=== PATIENT | female | born 1955 | race Caucasian/White ===

== ENCOUNTER 2020-07-10 21:04 | Inpatient (IN) | payer BC ==
[~2020-07-10] VITALS: Ht 149.9 cm; Wt 52.0 kg
[2020-07-10 21:42] LABS: CALCIUM 8.7 MG/DL (8.5-10.1); CREATININE 1.3 MG/DL (0.55-1.30); POTASSIUM 3.9 MMOL/L (3.5-5.1)
[2020-07-10 21:43] LABS: HEMATOCRIT 40.6 % (37.0-47.0); HEMOGLOBIN 13.7 G/DL (12.0-16.0); MEAN CORPUSCULAR VOLUME 94 FL (80-99); PLATELET COUNT 167 K/UL (150-450); RED BLOOD COUNT 4.32 M/UL (4.20-5.40); RED CELL DISTRIBUTION WIDTH 12.8 % (11.6-14.8); WHITE BLOOD COUNT 3.6 K/UL (4.8-10.8)
[2020-07-10 21:46] LABS: ALBUMIN 3.9 G/DL (3.4-5.0); ALBUMIN/GLOBULIN RATIO 1.1 (1.0-2.7); BILIRUBIN,TOTAL 0.9 MG/DL (0.2-1.0)
--- NOTE | 2020-07-10 22:06 | Emergency Room Report ---
History of Present Illness General Chief Complaint: Nausea, Vomiting, and Diarrhea Source: Patient, EMS Present Illness HPI This is a 65-year-old female with severe rheumatoid arthritis. She presents with chief complaint of a fall and back pain. She says she was walking and lost her balance and fell. Complaint of lower back pain. Pain is 10 out of 10. She is also using fentanyl patch and oral pain medication. Not helping. No incontinence of bowel or urine. No fever chills but does have nausea and vomiting today. Denies any head injury. Not on blood thinner. Pain is 10 out of 10. Worse with movement. Better with rest. Allergies: Coded Allergies: NAPROXEN (Verified Allergy, Unknown, 07/10/20) COVID-19 Screening Contact w/high risk pt: No Experienced COVID-19 symptoms?: No COVID-19 Testing performed COMMUNITY SERVICE COORDINATOR: No Patient History Past Medical History: see triage record, old chart reviewed Past Surgical History: other Pertinent Family History: none Social History: Denies: smoking Now: No Immunizations: other Reviewed Nursing Documentation: PMH: Agreed; PSxH: Agreed Review of Systems Eye: Denies: eye pain, blurred vision ENT: Denies: ear pain, nose congestion, throat swelling Respiratory: Denies: cough, shortness of breath Cardiovascular: Denies: chest pain, palpitations Gastrointestinal: Denies: abdominal pain, diarrhea, nausea, vomiting Musculoskeletal: Reports: back pain; Denies: joint pain Skin: Denies: rash Neurological: Denies: headache, numbness Endocrine: Denies: increased thirst, increased urine Hematologic/Lymphatic: Denies: easy bruising All Other Systems: negative except mentioned in HPI Physical Exam Vital Signs Date Time Temp Pulse Resp B/P (MAP) Pulse Ox O2 Delivery O2 Flow Rate FiO2 07/10/20 21:06 98.4 96 19 173/95 (121) 97 Room Air Vitals with high blood pressure Sp02 EP Interpretation: reviewed, normal General Appearance: well appearing, no apparent distress, alert Head: normocephalic, atraumatic Eyes: bilateral eye PERRL, bilateral eye EOMI ENT: hearing grossly normal, normal pharynx Neck: full range of motion, supple, no meningismus Respiratory: chest non-tender, lungs clear, normal breath sounds Cardiovascular #1: regular rate, rhythm, no murmur Gastrointestinal: normal bowel sounds, non tender, no mass, no organomegaly, no bruit, non-distended Musculoskeletal: normal range of motion, tender - Tenderness to the lower lumbar spine, other - Severe degenerative changes of the joints of her fingers consistent with rheumatoid arthritis Neurologic: alert, oriented x3, grossly normal Psychiatric: mood/affect normal Medical Decision Making Diagnostic Impression: Primary Impression: UTI (urinary tract infection) Qualified Codes: N30.00 - Acute cystitis without hematuria Additional Impressions: Compression fracture of lumbar vertebra Qualified Codes: S32.000A - [place] compression fracture of unspecified lumbar vertebra, initial encounter for closed fracture Intractable low back pain Compression fracture of thoracic vertebra Qualified Codes: S22.000A - Wedge compression fracture of unspecified thoracic vertebra, initial encounter for closed fracture ER Course Patient presents with a fall. She has severe degenerative changes and rheumatoid arthritis. Her lumbar spine showed compression fractures of thoracic to lumbar area. She has diffuse osteopenia. This is most likely chronic. She does have a urinary tract infection. She has been urinating frequently here. A Cortes was placed. Antibiotics given. Patient also has 75 mcg of fentanyl patch on her. Because of her fall, the nurse took that off and threw it away. Now she has vomiting. May be withdrawing. Patient will be admitted because she lives by herself and because of her pain she cannot move around. Also concerning that she has a bandemia. I discussed the case with Dr. Ag who will admit. Rhythm Strip Diag. Results EP Interpretation: yes Rate: 100 Rhythm: NSR, no PVC's, no ectopy CT/MRI/US Diagnostic Results CT/MRI/US Diagnostic Results : Imaging Test Ordered: CT lumbar spine Impression Read by radiologist. Compression fracture of T10, T12 and L1. Most likely chronic. Last Vital Signs Date Time Temp Pulse Resp B/P (MAP) Pulse Ox O2 Delivery O2 Flow Rate FiO2 07/10/20 21:06 98.4 96 19 173/95 (121) 97 Room Air Status: improved Disposition: ADMITTED INPATIENT Condition: Serious Referrals: NOT CHOSEN IPA/,REFERRING (PCP) Andre Miller MD Jul 10, 2020 22:06
[2020-07-10] MEDS ORDERED: Morphine Sulfate 4mg/ml Inj (IV USE ONLY) IVP ONE (22:15)
[2020-07-10 22:19] LABS: APPEARANCE,URINE CLEAR; BILIRUBIN, URINE NEGATIVE (NEGATIVE); COLOR,URINE PALE YELLOW; GLUCOSE, URINE (UA) NEGATIVE (NEGATIVE); KETONES,URINE NEGATIVE (NEGATIVE); LEUKOCYTE ESTERASE ,URINE 2+ (NEGATIVE); NITRITE,URINE NEGATIVE (NEGATIVE); PH,URINE 7 (4.5-8.0); PROTEIN,URINE NEGATIVE (NEGATIVE); UROBILINOGEN,URINE NORMAL MG/DL (0.0-1.0)
[2020-07-10] MEDS ORDERED: cefTRIAXone 1 GM in NS 55 ML IVPB ONE (22:30)
[2020-07-10 22:45] VITALS: BP 148/92
--- NOTE | 2020-07-10 22:50 | Diagnostic Imaging Report ---
EXAM: CT Lumbar Spine Without Intravenous Contrast CLINICAL HISTORY: TRAUMA TECHNIQUE: Axial computed tomography images of the lumbar spine without intravenous contrast. CTDI is 6.0 mGy and DLP is 222.4 mGy-cm. One or more of the following dose reduction techniques were used: automated exposure control, adjustment of the mA and/or kV according to patient size, use of iterative reconstruction technique. COMPARISON: No relevant prior studies available. FINDINGS: Vertebrae: Compression fractures of T10, T12, and L1. Subtle increased sclerosis suggests chronic fractures. Multilevel spondylosis, most prominent at L3-L4. No severe canal narrowing. Diffuse osteopenia. [place] left scoliosis of the lumbar spine. Discs/spinal canal/neural foramina: No acute findings. No spinal canal stenosis. Soft tissues: Unremarkable. Vasculature: Atherosclerotic vascular disease. Kidneys and ureters: Bilateral nonobstructing nephroliths are present. Bladder: There is malpositioning of the Cortes catheter, which is positioned posterior to the urinary bladder, likely within the vagina. Reproductive: Calcified uterine fibroids. Other findings: Left total hip arthroplasty. IMPRESSION: 1. Compression fractures of T10, T12, and L1. Given diffuse osteopenia is difficult to date the fractures, however, given subtle sclerotic appearance, suggest chronic fractures. Recommend correlation with exam for location of pain and point tenderness. 2. Cortes catheter likely within the vaginal canal. Recommend repositioning. 3. Additional chronic findings as above.
[2020-07-10] MEDS ORDERED: HYDROmorphone 1mg/ml Carpuject IVP ONE (23:15)
[2020-07-10] MEDS ORDERED: HYDROmorphone 1mg/ml Carpuject IVP PRN (23:15)
[2020-07-10] MEDS ORDERED: Metoclopramide 10mg/2ml Inj IVP ONE (23:15)
[2020-07-11] MEDS ORDERED: PREDNISONE10 MG ORAL (00:07)
[2020-07-11] MEDS ORDERED: CELEBREX200 MG ORAL (00:07)
[2020-07-11] MEDS ORDERED: AUGMENTIN 875-1 EAC1 ORAL (00:07)
[2020-07-11] MEDS ORDERED: ZOFRAN4 M3 ORAL (00:12)
[2020-07-11] MEDS ORDERED: FENTANYL1 EAC4 TDERMAL (00:12)
[2020-07-11] MEDS ORDERED: LEXAPRO10 MG ORAL (00:12)
[2020-07-11] MEDS ORDERED: LISINOPRIL10 MG ORAL (00:12)
[2020-07-11] MEDS ORDERED: PROLIA60 MG/1 ML SUBQ (00:12)
[2020-07-11] MEDS ORDERED: LACTAID3000 UNI2 PO (00:12)
[2020-07-11] MEDS ORDERED: MUPIROCIN22 GM TOPIC (00:12)
[2020-07-11] MEDS ORDERED: MORPHINE SULFAT30 M8 PO (00:12)
[2020-07-11] MEDS ORDERED: RELISTOR12 MG/0.1 SUBQ (00:12)
[2020-07-11] MEDS ORDERED: MIRALAX17 G2 ORAL (00:12)
[2020-07-11] MEDS ORDERED: PROTONIX40 MG ORAL (00:12)
[2020-07-11 00:30] VITALS: BP 131/81
[2020-07-11] MEDS ORDERED: COLACE100 MG ORAL (01:30)
[2020-07-11] MEDS ORDERED: EMERGEN-C 1,01000 MG PO (01:30)
[2020-07-11] MEDS ORDERED: RINVOQ ER15 MG PO (01:30)
[2020-07-11] MEDS ORDERED: TRAUMEEL (01:30)
[2020-07-11] MEDS ORDERED: [UNRECOGNIZED DRUG - OTHER] PO (01:30)
[2020-07-11] MEDS ORDERED: WEEKLY-D1250 MCG PO (01:30)
[2020-07-11] MEDS ORDERED: FENTANYL1 EAC1 TOPIC (01:30)
[2020-07-11] MEDS ORDERED: CARISOPRODOL350 MG ORAL (01:30)
[2020-07-11] MEDS ORDERED: [UNRECOGNIZED DRUG - OTHER] PO (01:30)
[2020-07-11] MEDS ORDERED: MORPHINE S10 MG/5 ML ORAL (01:30)
[2020-07-11] MEDS ORDERED: Docusate 100mg cap ORAL PRN (01:45)
[2020-07-11] MEDS ORDERED: Morphine Sulfate 2mg/ml Inj(IV/IM USE ONLY) IVP PRN (01:45)
[2020-07-11] MEDS ORDERED: HYDROmorphone 1mg/ml Carpuject IVP PRN (01:45)
[2020-07-11 04:01] VITALS: BP 138/89
[2020-07-11 08:00] VITALS: BP 135/76
[2020-07-11] MEDS ORDERED: Meloxicam 15 MG TAB ORAL SCH (09:00)
[2020-07-11] MEDS ORDERED: Lisinopril 10mg tab ORAL SCH (09:00)
[2020-07-11] MEDS ORDERED: Enoxaparin 40mg Inj SUBQ SCH (09:00)
[2020-07-11 09:25] LABS: HEMATOCRIT 39.2 % (37.0-47.0); HEMOGLOBIN 14.1 G/DL (12.0-16.0); MEAN CORPUSCULAR VOLUME 87 FL (80-99); PLATELET COUNT 188 K/UL (150-450); RED BLOOD COUNT 4.51 M/UL (4.20-5.40); RED CELL DISTRIBUTION WIDTH 12.5 % (11.6-14.8); WHITE BLOOD COUNT 15.9 K/UL (4.8-10.8)
--- NOTE | 2020-07-11 09:25 | Consultation ---
History of Present Illness General Date patient seen: Jul 11, 2020 Chief Complaint: Present Illness Allergies: Coded Allergies: NAPROXEN (Verified Allergy, Unknown, 07/10/20) Medication History Scheduled Ascorbic Acid/Multivit-Min (Emergen-C 1,000 mg Packet), 1,000 MG PO DAILY, (Reported) Celecoxib* (Celebrex*), 200 MG ORAL BID, (Reported) Cholecalciferol (Vitamin D3) (Weekly-D), 50,000 UNITS PO QWEEK, (Reported) Denosumab (Prolia), 60 MG SUBQ EVERY 6 MONTHS, (Reported) Escitalopram Oxalate* (Lexapro*), 10 MG ORAL DAILY, (Reported) Fentanyl 12MCG Patch* (Fentanyl 12MCG Patch*), 1 PATCH TDERMAL EVERY 72 HOURS, (Reported) Fentanyl 50MCG Patch (Fentanyl 50MCG Patch*), 1 PATCH TOPIC EVERY 72 HOURS, (Reported) Lisinopril* (Lisinopril*), 10 MG ORAL DAILY, (Reported) Polyethylene Glycol 3350* (Miralax*), 17 GM ORAL HS, (Reported) Prednisone* (Prednisone*), 10 MG ORAL DAILY, (Reported) Upadacitinib (Rinvoq ER), 15 MG PO DAILY, (Reported) [algaecal], 360 MG PO DAILY, (Reported) [realistor], 150 MG PO DAILY, (Reported) Scheduled PRN Carisoprodol* (Carisoprodol*), 0.5 TAB ORAL Q6H PRN for back pain, (Reported) Docusate Sodium* (Colace*), 100 MG ORAL DAILY PRN for Constipation, (Reported) Lactase (Lactaid), 3,000 UNIT PO DAILY PRN for supplement, (Reported) Morphine 10mg/5ml Oral Soln* (Morphine 10mg/5ml Oral Soln*), 30 MG ORAL Q4HR PRN for For Pain, (Reported) Mupirocin* (Mupirocin*), 1 APPLIC TOPIC THREE TIMES A DAY PRN for cat scratches and bites, (Reported) Ondansetron* (Zofran*), 4 MG ORAL Q6H PRN for Nausea & Vomiting, (Reported) Pantoprazole* (Protonix*), 40 MG ORAL DAILY PRN for gerd, (Reported) Miscellaneous Medications [traumeel], Unknown Dose, (Reported) Discontinued Medications Amoxicillin/Potassium Clav 875-125* (Augmentin 875-125 Tablet*), 1 TAB ORAL TWICE A DAY, (Reported) Discontinued Reason: Therapy completed Patient History Healthcare decision maker Resuscitation status Advanced Directive on File Physical Exam Last 24 Hour Vital Signs Date Time Temp Pulse Resp B/P (MAP) Pulse Ox O2 Delivery O2 Flow Rate FiO2 07/11/20 08:00 98.0 104 19 135/76 (95) 97 07/11/20 04:01 97.9 119 20 138/89 (105) 96 07/11/20 01:00 Room Air 2.0 07/11/20 00:30 99.9 115 20 131/81 (98) 96 07/11/20 00:05 98.4 104 19 148/92 97 Room Air 07/10/20 23:57 98.4 07/10/20 22:45 98.4 104 19 148/92 97 Room Air 07/10/20 22:40 98.4 07/10/20 21:06 98.4 96 19 173/95 (121) 97 Room Air Intake and Output 07/10/20 07/11/20 19:00 07:00 Intake Total 0 ml Balance 0 ml Intake Oral 0 ml # Voids 2 Laboratory Tests Test 07/10/20 21:20 07/10/20 22:00 07/11/20 09:00 White Blood Count 3.6 K/UL (4.8-10.8) L Pending Red Blood Count 4.32 M/UL (4.20-5.40) Pending Hemoglobin 13.7 G/DL (12.0-16.0) Pending Hematocrit 40.6 % (37.0-47.0) Pending Mean Corpuscular Volume 94 FL (80-99) Pending Mean Corpuscular Hemoglobin 31.7 PG (27.0-31.0) H Pending Mean Corpuscular Hemoglobin Concent 33.7 G/DL (32.0-36.0) Pending Red Cell Distribution Width 12.8 % (11.6-14.8) Pending Platelet Count 167 K/UL (150-450) Pending Mean Platelet Volume 6.7 FL (6.5-10.1) Pending Neutrophils (%) (Auto) % (45.0-75.0) Pending Lymphocytes (%) (Auto) % (20.0-45.0) Pending Monocytes (%) (Auto) % (1.0-10.0) Pending Eosinophils (%) (Auto) % (0.0-3.0) Pending Basophils (%) (Auto) % (0.0-2.0) Pending Differential Total Cells Counted 100 Neutrophils % (Manual) 82 % (45-75) H Lymphocytes % (Manual) 7 % (20-45) L Monocytes % (Manual) 2 % (1-10) Eosinophils % (Manual) 0 % (0-3) Basophils % (Manual) 1 % (0-2) Band Neutrophils 10 % (0-8) H Platelet Estimate Adequate Platelet Morphology Normal Red Blood Cell Morphology Normal Sodium Level 133 MMOL/L (136-145) L Pending Potassium Level 3.9 MMOL/L (3.5-5.1) Pending Chloride Level 96 MMOL/L (98-107) L Pending Carbon Dioxide Level 30 MMOL/L (21-32) Pending Anion Gap 7 mmol/L (5-15) Blood Urea Nitrogen 13 mg/dL (7-18) Pending Creatinine 1.3 MG/DL (0.55-1.30) Pending Estimat Glomerular Filtration Rate 41.0 mL/min (>60) Pending Glucose Level 146 MG/DL (74-106) H Pending Calcium Level 8.7 MG/DL (8.5-10.1) Pending Total Bilirubin 0.9 MG/DL (0.2-1.0) Pending Aspartate Amino Transf (AST/SGOT) 27 U/L (15-37) Pending Alanine Aminotransferase (ALT/SGPT) 23 U/L (12-78) Pending Alkaline Phosphatase 76 U/L (46-116) Pending Total Protein 7.4 G/DL (6.4-8.2) Pending Albumin 3.9 G/DL (3.4-5.0) Pending Globulin 3.5 g/dL Pending Albumin/Globulin Ratio 1.1 (1.0-2.7) Lipase 61 U/L (73-393) L Urine Color Pale yellow Urine Appearance Clear Urine pH 7 (4.5-8.0) Urine Specific [place] 1.000 (1.005-1.035) Urine Protein Negative (NEGATIVE) Urine Glucose (UA) Negative (NEGATIVE) Urine Ketones Negative (NEGATIVE) Urine Blood 3+ (NEGATIVE) H Urine Nitrite Negative (NEGATIVE) Urine Bilirubin Negative (NEGATIVE) Urine Urobilinogen Normal MG/DL (0.0-1.0) Urine Leukocyte Esterase 2+ (NEGATIVE) H Urine RBC 15-20 /HPF (0 - 2) H Urine WBC 15-20 /HPF (0 - 2) H Urine Squamous Epithelial Cells Few /LPF (NONE/OCC) Urine Bacteria Moderate /HPF (NONE) H Hemoglobin A1c Pending Triglycerides Level Pending Cholesterol Level Pending LDL Cholesterol Pending HDL Cholesterol Pending Cholesterol/HDL Ratio Pending Height (Feet): 4 Height (Inches): 11.00 Weight (Pounds): 103 Medications Current Medications Medications (Trade) Dose Ordered Sig/Jessica Route PRN Reason Start Time Stop Time Status Last Admin Dose Admin Acetaminophen (Tylenol) 650 mg Q6H PRN ORAL mild pain and fever 07/11/20 01:45 08/10/20 01:44 Ceftriaxone Sodium 2 gm/ Dextrose 55 ml @ 110 mls/hr Q24H IVPB 07/11/20 23:00 07/18/20 22:59 Docusate Sodium (Colace) 100 mg DAILY PRN ORAL Constipation 07/11/20 01:45 08/10/20 01:44 Enoxaparin Sodium (Lovenox) 40 mg DAILY SUBQ 07/11/20 09:00 10/09/20 08:59 Escitalopram Oxalate (Lexapro) 10 mg DAILY ORAL 07/11/20 09:00 08/10/20 08:59 Hydromorphone HCl (Dilaudid) 1 mg Q6H PRN IVP Severe Pain (Pain Scale 7-10) 07/11/20 01:45 07/18/20 01:44 Lisinopril (ZestriL) 10 mg DAILY ORAL 07/11/20 09:00 08/10/20 08:59 Meloxicam (Mobic) 15 mg DAILY ORAL 07/11/20 09:00 08/10/20 08:59 Metoclopramide HCl (Reglan) 10 mg Q6H PRN IVP Nausea & Vomiting 07/11/20 01:45 08/10/20 01:44 Morphine Sulfate (Morphine Sulfate) 2 mg Q4H PRN IVP Moderate Pain (Pain Scale 4-6) 07/11/20 01:45 07/18/20 01:44 Mupirocin (Bactroban Oint) 1 applic THREE TIMES A DAY PRN TOPIC cat scratches and bites 07/11/20 01:45 07/16/20 01:44 Ondansetron HCl (Zofran) 4 mg Q6H PRN ORAL Nausea & Vomiting 07/11/20 01:45 08/10/20 01:44 Pantoprazole (Protonix) 40 mg DAILY PRN ORAL gerd 07/11/20 01:45 08/10/20 01:44 Polyethylene Glycol (Miralax) 17 gm QHS ORAL 07/11/20 21:00 08/10/20 20:59 Prednisone (predniSONE) 10 mg DAILY ORAL 07/11/20 09:00 08/10/20 08:59 Assessment/Plan Assessment/Plan: (1) Lumbar DDD/Spondylosis (2) Thoracic compression fractures (3) Rheumatoid arthritis (4) Multiple joint pain seen dictated David Morris Jul 11, 2020 09:25
[2020-07-11] MEDS ORDERED: Naloxone 0.4mg/ml Inj IVP PRN (09:30)
[2020-07-11] MEDS: HYDROmorphone 1mg/ml Carpuject IVP PRN ×4 (09:35→22:47)
[2020-07-11 10:02] LABS: ALANINE AMINOTRANSFERASE 117 U/L (12-78); ALBUMIN 2.9 G/DL (3.4-5.0); ALBUMIN/GLOBULIN RATIO 1.1 (1.0-2.7); ALKALINE PHOSPHATASE 140 U/L (46-116); ANION GAP 10 mmol/L (5-15); ASPARTATE AMINO TRANSFERASE 152 U/L (15-37); BLOOD UREA NITROGEN 12 mg/dL (7-18); CALCIUM 7.7 MG/DL (8.5-10.1); CARBON DIOXIDE 27 MMOL/L (21-32); CHLORIDE 101 MMOL/L (98-107); CHOLESTEROL 186 MG/DL (< 200); CREATININE 1.6 MG/DL (0.55-1.30); HDL CHOLESTEROL 96 MG/DL (40-60); POTASSIUM 3.3 MMOL/L (3.5-5.1); SODIUM 138 MMOL/L (136-145); TRIGLYCERIDES 160 MG/DL (30-150)
--- NOTE | 2020-07-11 10:30 | History and Physical Report ---
DATE OF ADMISSION: 07/10/2020 SOURCE OF INFORMATION: The patient and EMR. HISTORY OF PRESENT ILLNESS: The patient is a 65-year-old female that came to the ER with diffuse back pain. The patient reportedly had fallen and has been suffering from the severe osteoarthritis. The patient is complaining of lower back pain. Denies any incontinence in the bowel or urine. Denies any nausea or vomitus. Denies any fever or chills. CURRENT HOSPITAL MEDICATIONS: Dilaudid, morphine. PAST MEDICAL AND SURGICAL HISTORY: Including rheumatoid arthritis, osteoporosis, and multiple joint deformities. ALLERGIES: To naproxen. SOCIAL HISTORY: The patient reported that she is living by herself. The patient denies history of illicit drug abuse, smoking, or alcohol abuse. Remainder cannot be obtained as the patient is sleepy. PHYSICAL EXAMINATION: VITAL SIGNS: Blood pressure 170/80, temperature 98.2, pulse rate 110, and respiratory rate 18. HEAD AND NECK: Atraumatic and normocephalic. CHEST: Clear to auscultation. HEART: S1 and S2. Regular rate and rhythm. ABDOMEN: Soft. No organomegaly. MUSCULOSKELETAL: Diffuse deformity in all of her joints. Positive for stooped postures and pain in the thoracic area. NEUROLOGIC: The patient is awake, alert, and oriented x3 with incidence of delirious, iatrogenic secondary to narcotic pain medication. IMAGING: Spine CT dated July 10, reviewed shows compression fractures of T10, T12, and L1. LABORATORY DATA: Labs dated July 10, hemoglobin of 13.7, platelet count of 167,000. Sodium 133. UA is positive for bacteria, blood, and wbc. ASSESSMENT AND PLAN: 1. Mechanical fall and multiple compression deformity fractures in multiple ages. 2. UTI. 3. Pain management. 4. Rheumatoid arthritis and severe debilitating arthritic disease. 5. Hypertension. 6. Anxiety and depression. 7. GI and DVT prophylaxis. PLAN OF CARE: Continue with empiric antibiotic treatment. Nephrology, psychiatrist, and Pain Management have been consulted. The time of this dictation does not reflect the actual time of encounter. Jessica Ag M.D. DR: Pranav JOB#: [id number] CC:
[2020-07-11 12:00] VITALS: BP 130/80
--- NOTE | 2020-07-11 12:59 | Consultation ---
Consult Note Consult Note I am asked to evaluate the patient at the request of Dr. Ag for elevated serum creatinine and electrolyte imbalance management Patient seen and examined Emergency room note: Chief Complaint: Nausea, Vomiting, and Diarrhea This is a 65-year-old female with severe rheumatoid arthritis. She presents with chief complaint of a fall and back pain. She says she was walking and lost her balance and fell. Complaint of lower back pain. Pain is 10 out of 10. She is also using fentanyl patch and oral pain medication. Not helping. No incontinence of bowel or urine. No fever chills but does have nausea and vomiting today. Denies any head injury. Not on blood thinner. Pain is 10 out of 10. Worse with movement. Better with rest. Allergies: NAPROXEN (Verified Allergy, Unknown, 07/10/20) COVID-19 Screening Contact w/high risk pt: No Experienced COVID-19 symptoms?: No COVID-19 Testing performed GENERAL PASSENGER AGENT: No Vital Signs Date Time Temp Pulse Resp B/P (MAP) Pulse Ox O2 Delivery O2 Flow Rate FiO2 07/10/20 21:06 98.4 96 19 173/95 (121) 97 Room Air Vitals with high blood pressure HEAD AND NECK: Atraumatic and normocephalic. CHEST: Clear to auscultation. HEART: S1 and S2. Regular rate and rhythm. ABDOMEN: Soft. No organomegaly. MUSCULOSKELETAL: Diffuse deformity in all of her joints. Positive for stooped postures and pain in the thoracic area. NEUROLOGIC: The patient is awake, alert, and oriented x3 with incidence of delirious, iatrogenic secondary to narcotic pain medication. DATA: Sodium 138, potassium 3.3, BUN 12, creatinine 1.6, glucose 90. AST 152, ALT 117. Albumin 2.9. Lipase 61. Hemoglobin 14.1, WBC 15.9, platelets 188. . Assessment/Plan Renal failure, likely dehydration UTI Electrolyte abnormalities Elevated liver function tests History of rheumatoid arthritis Suggestion: Stop meloxicam Stop lisinopril Protonix twice daily Monitor renal parameters Avoid nephrotoxic's Urine studies Slow hydration Per orders Deepak Joseph MD Jul 11, 2020 12:59
--- NOTE | 2020-07-11 13:50 | Consultation ---
History of Present Illness General Date patient seen: Jul 11, 2020 Chief Complaint: Nausea, Vomiting, and Diarrhea Present Illness HPI 65 y/o F with hx of advanced RA, HTN, Anxiety disorder/MDD, osteoporosis presented to ED with fall, back pain, nausea, vomiting and diarrhea. Upon admission was found to be on DIANNE Denied f/c, head injury, bowel or urine incontinence Allergies: Coded Allergies: NAPROXEN (Verified Allergy, Unknown, 07/10/20) Medication History Scheduled Ascorbic Acid/Multivit-Min (Emergen-C 1,000 mg Packet), 1,000 MG PO DAILY, (Reported) Celecoxib* (Celebrex*), 200 MG ORAL BID, (Reported) Cholecalciferol (Vitamin D3) (Weekly-D), 50,000 UNITS PO QWEEK, (Reported) Denosumab (Prolia), 60 MG SUBQ EVERY 6 MONTHS, (Reported) Escitalopram Oxalate* (Lexapro*), 10 MG ORAL DAILY, (Reported) Fentanyl 12MCG Patch* (Fentanyl 12MCG Patch*), 1 PATCH TDERMAL EVERY 72 HOURS, (Reported) Fentanyl 50MCG Patch (Fentanyl 50MCG Patch*), 1 PATCH TOPIC EVERY 72 HOURS, (Reported) Lisinopril* (Lisinopril*), 10 MG ORAL DAILY, (Reported) Polyethylene Glycol 3350* (Miralax*), 17 GM ORAL HS, (Reported) Prednisone* (Prednisone*), 10 MG ORAL DAILY, (Reported) Upadacitinib (Rinvoq ER), 15 MG PO DAILY, (Reported) [algaecal], 360 MG PO DAILY, (Reported) [realistor], 150 MG PO DAILY, (Reported) Scheduled PRN Carisoprodol* (Carisoprodol*), 0.5 TAB ORAL Q6H PRN for back pain, (Reported) Docusate Sodium* (Colace*), 100 MG ORAL DAILY PRN for Constipation, (Reported) Lactase (Lactaid), 3,000 UNIT PO DAILY PRN for supplement, (Reported) Morphine 10mg/5ml Oral Soln* (Morphine 10mg/5ml Oral Soln*), 30 MG ORAL Q4HR PRN for For Pain, (Reported) Mupirocin* (Mupirocin*), 1 APPLIC TOPIC THREE TIMES A DAY PRN for cat scratches and bites, (Reported) Ondansetron* (Zofran*), 4 MG ORAL Q6H PRN for Nausea & Vomiting, (Reported) Pantoprazole* (Protonix*), 40 MG ORAL DAILY PRN for gerd, (Reported) Miscellaneous Medications [traumeel], Unknown Dose, (Reported) Discontinued Medications Amoxicillin/Potassium Clav 875-125* (Augmentin 875-125 Tablet*), 1 TAB ORAL TWICE A DAY, (Reported) Discontinued Reason: Therapy completed Patient History Healthcare decision maker Resuscitation status Advanced Directive on File Patient History Narrative Pmhx: as above Shx: The patient reported that she is living by herself. The patient denies history of illicit drug abuse, smoking, or alcohol abuse. Fhx: non contributory Review of Systems All Other Systems: negative except mentioned in HPI Physical Exam Physical Exam Narrative HEAD AND NECK: Atraumatic and normocephalic. CHEST: Clear to auscultation. HEART: S1 and S2. Regular rate and rhythm. ABDOMEN: Soft. No organomegaly. MUSCULOSKELETAL: Diffuse deformity in all of her joints. Positive for stooped postures and pain in the thoracic area. NEUROLOGIC: The patient is awake, alert, and oriented x3 with incidence of delirious, iatrogenic secondary to narcotic pain medication. Last 24 Hour Vital Signs Date Time Temp Pulse Resp B/P (MAP) Pulse Ox O2 Delivery O2 Flow Rate FiO2 07/11/20 12:00 98.1 83 20 130/80 (97) 98 07/11/20 09:39 135/76 07/11/20 09:00 Nasal Cannula 2.0 07/11/20 08:00 98.0 104 19 135/76 (95) 97 07/11/20 04:01 97.9 119 20 138/89 (105) 96 07/11/20 01:00 Room Air 2.0 07/11/20 00:30 99.9 115 20 131/81 (98) 96 07/11/20 00:05 98.4 104 19 148/92 97 Room Air 07/10/20 23:57 98.4 07/10/20 22:45 98.4 104 19 148/92 97 Room Air 07/10/20 22:40 98.4 07/10/20 21:06 98.4 96 19 173/95 (121) 97 Room Air Intake and Output 07/10/20 07/11/20 19:00 07:00 Intake Total 0 ml Balance 0 ml Intake Oral 0 ml # Voids 2 Laboratory Tests Test 07/10/20 21:20 07/10/20 22:00 07/11/20 09:00 White Blood Count 3.6 K/UL (4.8-10.8) L 15.9 K/UL (4.8-10.8) #H Red Blood Count 4.32 M/UL (4.20-5.40) 4.51 M/UL (4.20-5.40) Hemoglobin 13.7 G/DL (12.0-16.0) 14.1 G/DL (12.0-16.0) Hematocrit 40.6 % (37.0-47.0) 39.2 % (37.0-47.0) Mean Corpuscular Volume 94 FL (80-99) 87 FL (80-99) Mean Corpuscular Hemoglobin 31.7 PG (27.0-31.0) H 31.3 PG (27.0-31.0) H Mean Corpuscular Hemoglobin Concent 33.7 G/DL (32.0-36.0) 36.0 G/DL (32.0-36.0) Red Cell Distribution Width 12.8 % (11.6-14.8) 12.5 % (11.6-14.8) Platelet Count 167 K/UL (150-450) 188 K/UL (150-450) Mean Platelet Volume 6.7 FL (6.5-10.1) 6.2 FL (6.5-10.1) L Neutrophils (%) (Auto) % (45.0-75.0) % (45.0-75.0) Lymphocytes (%) (Auto) % (20.0-45.0) % (20.0-45.0) Monocytes (%) (Auto) % (1.0-10.0) % (1.0-10.0) Eosinophils (%) (Auto) % (0.0-3.0) % (0.0-3.0) Basophils (%) (Auto) % (0.0-2.0) % (0.0-2.0) Differential Total Cells Counted 100 100 Neutrophils % (Manual) 82 % (45-75) H 82 % (45-75) H Lymphocytes % (Manual) 7 % (20-45) L 5 % (20-45) L Monocytes % (Manual) 2 % (1-10) 7 % (1-10) Eosinophils % (Manual) 0 % (0-3) 0 % (0-3) Basophils % (Manual) 1 % (0-2) 0 % (0-2) Band Neutrophils 10 % (0-8) H 6 % (0-8) Platelet Estimate Adequate Adequate Platelet Morphology Normal Normal Red Blood Cell Morphology Normal Normal Sodium Level 133 MMOL/L (136-145) L 138 MMOL/L (136-145) Potassium Level 3.9 MMOL/L (3.5-5.1) 3.3 MMOL/L (3.5-5.1) L Chloride Level 96 MMOL/L (98-107) L 101 MMOL/L (98-107) Carbon Dioxide Level 30 MMOL/L (21-32) 27 MMOL/L (21-32) Anion Gap 7 mmol/L (5-15) 10 mmol/L (5-15) Blood Urea Nitrogen 13 mg/dL (7-18) 12 mg/dL (7-18) Creatinine 1.3 MG/DL (0.55-1.30) 1.6 MG/DL (0.55-1.30) H Estimat Glomerular Filtration Rate 41.0 mL/min (>60) 32.3 mL/min (>60) Glucose Level 146 MG/DL (74-106) H 90 MG/DL (74-106) Calcium Level 8.7 MG/DL (8.5-10.1) 7.7 MG/DL (8.5-10.1) L Total Bilirubin 0.9 MG/DL (0.2-1.0) 1.0 MG/DL (0.2-1.0) Aspartate Amino Transf (AST/SGOT) 27 U/L (15-37) 152 U/L (15-37) H Alanine Aminotransferase (ALT/SGPT) 23 U/L (12-78) 117 U/L (12-78) H Alkaline Phosphatase 76 U/L (46-116) 140 U/L (46-116) H Total Protein 7.4 G/DL (6.4-8.2) 5.6 G/DL (6.4-8.2) L Albumin 3.9 G/DL (3.4-5.0) 2.9 G/DL (3.4-5.0) L Globulin 3.5 g/dL 2.7 g/dL Albumin/Globulin Ratio 1.1 (1.0-2.7) 1.1 (1.0-2.7) Lipase 61 U/L (73-393) L Urine Color Pale yellow Urine Appearance Clear Urine pH 7 (4.5-8.0) Urine Specific White 1.000 (1.005-1.035) Urine Protein Negative (NEGATIVE) Urine Glucose (UA) Negative (NEGATIVE) Urine Ketones Negative (NEGATIVE) Urine Blood 3+ (NEGATIVE) H Urine Nitrite Negative (NEGATIVE) Urine Bilirubin Negative (NEGATIVE) Urine Urobilinogen Normal MG/DL (0.0-1.0) Urine Leukocyte Esterase 2+ (NEGATIVE) H Urine RBC 15-20 /HPF (0 - 2) H Urine WBC 15-20 /HPF (0 - 2) H Urine Squamous Epithelial Cells Few /LPF (NONE/OCC) Urine Bacteria Moderate /HPF (NONE) H Hemoglobin A1c 5.7 % (4.3-6.0) Triglycerides Level 160 MG/DL (30-150) H Cholesterol Level 186 MG/DL (< 200) LDL Cholesterol 69 mg/dL (<100) HDL Cholesterol 96 MG/DL (40-60) H Cholesterol/HDL Ratio 1.9 (3.3-4.4) L Height (Feet): 4 Height (Inches): 11.00 Weight (Pounds): 103 Medications Current Medications Medications (Trade) Dose Ordered Sig/Jessica Route PRN Reason Start Time Stop Time Status Last Admin Dose Admin Acetaminophen (Tylenol) 650 mg Q6H PRN ORAL mild pain and fever 07/11/20 01:45 08/10/20 01:44 Ceftriaxone Sodium 2 gm/ Dextrose 55 ml @ 110 mls/hr Q24H IVPB 07/11/20 23:00 07/18/20 22:59 Dextrose/ Electrolytes 1,000 ml @ 50 mls/hr Q20H IV 07/11/20 14:00 08/10/20 13:59 Docusate Sodium (Colace) 100 mg TID ORAL 07/11/20 18:00 08/10/20 01:44 Enoxaparin Sodium (Lovenox) 30 mg DAILY SUBQ 07/12/20 09:00 10/10/20 08:59 Escitalopram Oxalate (Lexapro) 10 mg DAILY ORAL 07/11/20 09:00 08/10/20 08:59 07/11/20 12:23 Hydromorphone HCl (Dilaudid) 1 mg Q4H PRN IVP Severe Pain (Pain Scale 7-10) 07/11/20 09:30 07/18/20 01:44 07/11/20 09:35 Metoclopramide HCl (Reglan) 10 mg Q6H PRN IVP Nausea & Vomiting 07/11/20 01:45 08/10/20 01:44 Mupirocin (Bactroban Oint) 1 applic THREE TIMES A DAY PRN TOPIC cat scratches and bites 07/11/20 01:45 07/16/20 01:44 Naloxone HCl (Narcan) 0.2 mg Q2M PRN IVP RR<8/MIN 07/11/20 09:30 10/09/20 09:29 Pantoprazole (Protonix) 40 mg BID ORAL 07/11/20 13:15 08/10/20 01:44 Polyethylene Glycol (Miralax) 17 gm QHS ORAL 07/11/20 21:00 08/10/20 20:59 Prednisone (predniSONE) 10 mg DAILY ORAL 07/11/20 09:00 08/10/20 08:59 07/11/20 09:40 Assessment/Plan Assessment/Plan: Abx: Ceftriaxone 07/10- Assessment: Sepsis Probable UTI- ?pyelo ( had n/v ) -u/a wbc 15-20, nit neg, leuk +2; ucx p Afebrile Leukocytosis (on low dose prednisone but this is home med and no leukocytosis upon admission) DIANNE Nause/vomiting- r/o acute cholecystitis Elevated LFTs Back pain, sp fall- Compression fx T10, T12, L1 -CT L spine: Compression fractures of T10, T12, and L1. Given diffuse osteopenia is difficult to date the fractures, however, given subtle sclerotic appearance, suggest chronic fractures. Recommend correlation with exam for location of pain and point tenderness.Cortes catheter likely within the vaginal canal. Recommend repositioning. Additional chronic findings as above. advanced RA HTN Anxiety disorder/MDD osteoporosis Plan: -Switch Ceftriaxone #2 to Zosyn -f/u cx -Monitor CBC/CMP, temperatures -f.u abd us -HIV ab screen, Acute hep panel, CXR, Bcx x2 Thank you for this consultation. Will continue to follow along with you. Discussed with DEX. Pushpa Tejeda M.D. Jul 11, 2020 13:50
--- NOTE | 2020-07-11 14:48 | Diagnostic Imaging Report ---
Indication: Abdominal pain Technique: Adams-scale and duplex images of the upper abdomen were obtained Comparison: none Findings: Large vessels are seen around the pancreas. Gallbladder there is trace no gallstones. There is mild gallbladder wall thickening, gallbladder wall measuring 4 mm thick Sonographic Abdul's sign is negative. Common bile duct measures 6 mm in diameter. No intrahepatic biliary ductal dilatation. Liver demonstrates normal echogenicity, no focal abnormality. Portal vein and hepatic veins are patent. Pancreas is unremarkable although anechoic round structures are seen in the peripancreatic region. Spleen is unremarkable. However, a prominent vascular structures seen in the splenic hilum. Left kidney measures 9.9 cm in length. Right kidney measures 8 cm length. Both kidneys demonstrate normal echogenicity. There is no hydronephrosis. A calcification measuring 4 mm in diameter is seen in the renal sinus on the right. There is an 8 mm left lower pole calcification on the left. Bladder is nondistended, equivocally mildly thick-walled. Non-aneurysmal abdominal aorta . Unusual pelvic fluid appears to be within the vagina or less likely the endocervical canal Impression: Negative for gallstones. However, there is mild gallbladder wall thickening. Possibility of acalculous acute cholecystitis should be considered Peripancreatic cysts versus possible varices Splenic hilar vascular structure, could represent a hilar varix or splenic artery aneurysm. Consider contrast CT for further evaluation Bilateral nonobstructive intrarenal calculi Unusual fluid within the endocervical canal or vagina, favor the latter
[2020-07-11 16:00] VITALS: BP 127/75
--- NOTE | 2020-07-11 16:45 | Consultation ---
DATE OF CONSULTATION: 07/11/2020 PAIN MANAGEMENT CONSULTATION CONSULTING PHYSICIAN: Lizandro Mckeon MD REFERRING PHYSICIAN: Jessica Ag MD PHYSICIAN IT SECURITY ENGINEER: JAIRON Gay CHIEF COMPLAINT: Generalized body pain. HISTORY OF PRESENT ILLNESS: This is a 65-year-old female who is being seen on the Med/Surg floor of [facility] for initial pain management consultation. The patient was admitted under the care of Dr. Ag due to abdominal pain, nausea, vomiting, and diarrhea, and was found to have UTI and chronic pain throughout her whole body, which she had been having for many years due to rheumatoid arthritis and multiple surgeries on her knees and upper extremity. The patient at this time is in the bed complaining of pain and just recently had a bowel movement. She is very weak. [facility] PDMP was reviewed showing the patient is seeing Dr. Sera Salvador, who is an Internal Medicine Geriatric physician. The patient is being prescribed Soma 350 mg tablet three times a day, fentanyl patches 62 mcg every 72 hours as well as morphine sulfate 30 mg liquid as needed every 4 hours for pain. At this time, the patient was admitted to the hospital for further medical care and was started on Dilaudid 1 mg IV every 6 hours as needed for severe pain and morphine 2 mg IV every 4 hours as needed for moderate pain. We were consulted so that the patient would have adequate pain control while here in the hospital. I contacted Dr. Sera Salvador's office and talked to Henny at the net front end developer, who is her assistant administrator. The patient has history of rheumatoid arthritis, osteoporosis, hypertension, constipation, and thoracic compression fractures which are chronic. Further mentioned, the patient did undergo a CT scan of the lumbar spine and was found to have compression fractures at T10, T12, and L1, which showed diffuse osteopenia. The patient also had history of left hip arthroplasty, spondylosis of lumbar spine, and there were chronic compression fractures of the thoracic and lumbar spine. Again, we were consulted so that the patient would have adequate pain control while here in the hospital. PAST MEDICAL HISTORY: Again is hypertension, constipation, rheumatoid arthritis, osteoporosis, and compression fractures of the thoracic and lumbar spine. PAST SURGICAL HISTORY: Bilateral knee surgery, hand surgery, and left hip surgery. SOCIAL HISTORY: Denies smoking tobacco, drinking alcohol, or IV drug abuse. ALLERGIES: Naproxen. MEDICATIONS: Soma, fentanyl patch, morphine, Celebrex, Prolia, Lexapro, lisinopril, MiraLAX, prednisone, Colace, Zofran, and Protonix. REVIEW OF SYSTEMS: Denies rash, fever, chills, sweating, dizziness, drowsiness, blurred vision, sore throat, or change in weight. No shortness of breath or chest pain. No nausea, vomiting, diarrhea, or blood in the stool or urine. No dysuria. She is complaining of generalized body pain. PHYSICAL EXAMINATION: GENERAL: Alert, awake, and oriented. VITAL SIGNS: Blood pressure 135/72, heart rate 74, oxygen saturation 98%, respiratory rate 19, and temperature 98 degrees Fahrenheit. HEENT: PERRLA. NECK: Range of motion is reduced due to the patient's condition. No tenderness to paracervical muscles. No adenopathy. LUNGS: Decreased breath sounds bilaterally. HEART: S1 and S2 regular. ABDOMEN: Tenderness to palpation. BACK: Range of motion is decreased in flexion and extension. EXTREMITIES: Upper and lower extremity range of motion is decreased due to the patient's condition. No cyanosis. No clubbing. No edema. Sensory is reduced. Reflexes are not obtainable. No adenopathy. ASSESSMENT AND PLAN: This is a 65-year-old female with lumbar degenerative disk disease, lumbar spondylosis, thoracic compression fractures likely chronic, multiple joint pain, and rheumatoid arthritis. The patient will be changed to Dilaudid 1 mg IV every 4 hours as needed for severe pain. We will discontinue the morphine IV and start the patient on Narcan 0.2 mg IV every 2 minutes as needed for respiratory depression less than 8 per minute as well as add parameters to hold opiates for over-sedation, lethargy, systolic blood pressure below 90 or diastolic blood pressure below 60, respiratory rate below 12, oxygen saturation below 94%, or heart rate below 69. At this time, we will hold the fentanyl patches from being restarted until the patient becomes more stabilized. The patient was discussed with Dr. Mckeon and Dr. Mckeon concurred. We will follow the patient. Thank you very much for the courtesy of this consultation. Lizandro Mckeon M.D. JAIRON Gay DR: Sandi JOB#: [id number] CC: [id number]
--- NOTE | 2020-07-11 16:52 | Diagnostic Imaging Report ---
Indication: Cough Technique: One view of the chest Comparison: none Findings: There are bilateral breast implants with rim calcifications. The heart is borderline enlarged. No definite acute infiltrates, effusions, or congestion. The aorta is tortuous and calcified Impression: No acute process
[2020-07-11] MEDS: Docusate 100mg cap ORAL SCH (18:27)
[2020-07-11 20:00] VITALS: BP 95/66
[2020-07-11] MEDS: Miralax 17gm pkt ORAL SCH ×2 (21:00→21:39)
--- NOTE | 2020-07-11 21:00 | Consultation ---
DATE OF CONSULTATION: 07/11/2020 PHYSICAL MEDICINE AND REHABILITATION CONSULTATION CONSULTING PHYSICIAN: Jayme Randall MD REFERRING PHYSICIAN: Jessica Ag MD PAIN MANAGEMENT: Lizandro Mckeon MD BOXING INSTRUCTOR: Deepak Joseph MD INFECTIOUS DISEASE: Pushpa Tejeda MD CHIEF COMPLAINT: Difficulty with ambulation, activity of daily living in a patient status post fall with multiple lumbar and thoracic spine compression fractures, urinary tract infection, acute on chronic pain syndrome, leukocytosis, possible acute cholecystitis, acute kidney injury, and transaminitis. HISTORY OF PRESENT ILLNESS: Patient is a 65-year-old female with history of rheumatoid arthritis since age 2 and multiple orthopedic surgeries including bilateral knee and wrist under care of paint stripper Dr. Sera Salvador apparently has been living at home with 2 days of a week caregiver in a modified independent level with usage of cane. She stated she lost her balance and fell. She denies hitting her head or any specific parts of body. She states she did not lose consciousness, but she has started having more and more pain, especially in the back area. Patient eventually was visited by a friend who called paramedics and the patient was brought to the emergency room at [facility]. Lumbar spine CT scan reported a compression fracture of T10, T12 and L1. Patient had leukocytosis of over 15,000 and evidence of urinary tract infection using urinalysis. Patient was seen by multiple consultants as above. Patient showed evidence of acute kidney injury, creatinine jumping to 1.6 and severe transaminitis with elevated liver function tests. Also, abdominal ultrasound was done, which showed possible cholecystitis. Patient's lipase level was 61. Patient had difficulty with her functionality. I was asked today to evaluate the patient for rehabilitation. Patient has back pain on the top of generalized pain. PAST MEDICAL AND SURGICAL HISTORY: 1. Bilateral knee surgery. 2. Wrist surgery. 3. Rheumatoid arthritis since age of 2. 4. Multiple joint deformities. 5. Chronic compression fracture of thoracic spine. 6. Hypertension. 7. Chronic constipation. 8. Left hip surgery. ALLERGIES: Naprosyn. MEDICATIONS: Lovenox 30 mg subcutaneous daily, ceftriaxone IV daily, MiraLAX 17 g nightly, Colace 100 mg t.i.d., Protonix 40 mg b.i.d., [place] p.r.n., Dilaudid p.r.n., prednisone 10 mg daily, Lexapro 10 mg daily, Bactroban 3 times a day topical, Tylenol p.r.n., Reglan p.r.n. FAMILY AND SOCIAL HISTORY: Patient has never been . She does not have any children. 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 She lives in a condominium with 5 steps to enter in a modified independent level of function with ability of ambulation with a cane. She still drives and has caregiver 2 days a week. Denies usage of tobacco, alcohol, or illicit drugs. She is under care of paint stripper, Dr. Sera Salvador on multiple narcotic medications and Soma including fentanyl patch, morphine liquid. Denies any significant family medical history. Currently requires assistance for bed mobility and transfer, but no official physical therapy input noted. REVIEW OF SYSTEMS: CONSTITUTIONAL: No chills or fever. EYES: Denies diplopia. ENT: Denies dysphagia. CARDIOVASCULAR: No chest pain. PULMONARY: No short of breath. GASTROINTESTINAL: Patient has complained of abdominal pain. GENITOURINARY: No dysuria. MUSCULOSKELETAL: Multiple pain. Acute on chronic pain syndrome. INTEGUMENTARY: Per Wound Care team. NEUROLOGIC: Generalized weakness. PHYSICAL EXAMINATION: VITAL SIGNS: Blood pressure 120/70, respiratory rate 19 per minute, heart rate 79 per minute, temperature 98 degrees Fahrenheit, O2 saturation 99%. Height is 150 centimeters, weight is 46 kilograms. Body mass index 20. GENERAL: No acute distress. HEENT: No facial droop. NECK: Supple with no lymphadenopathy. PULSE: Bilateral carotid, femoral, dorsalis pedis palpable. HEART: Regular. LUNGS: Clear to auscultation bilateral. ABDOMEN: Soft. No distention. Positive bowel sounds. EXTREMITIES: Multiple deformities of hands especially and wrists. Area of bilateral knee surgery old heal noted. BACK: Tenderness of the thoracic and lumbar spine. SKIN: Per Wound Care team. NEUROLOGIC: Patient is alert and awake. She is oriented to place. Movement of bilateral upper and lower limbs somewhere between 3- to 3+/5. DATA: Sodium 138, potassium 3.3, BUN 12, creatinine 1.6, glucose 90. AST 152, ALT 117. Albumin 2.9. Lipase 61. Hemoglobin 14.1, WBC 15.9, platelets 188. ASSESSMENT: A 65-year-old female with 1. Thoracic and lumbar spine compression fracture/T10, T12, and L1 compression fracture. 2. Abdominal pain with elevated lipase level and abdominal ultrasound with possible report with acute cholecystitis. 3. Leukocytosis. 4. Transaminitis. 5. Urinary tract infection. 6. Chronic pain syndrome and narcotic dependency. 7. Acute on chronic pain syndrome. 8. Back pain. 9. Rheumatoid arthritis since age of 2 with multiple deformities and history of multiple surgeries including bilateral knees, wrists, and hip. 10. Debility and functional decline. 11. Gait abnormality. RECOMMENDATION: This patient will benefit from physical therapy, occupational therapy, and 24 hours nursing care. Physical therapy for range of motion, transfer training, endurance, balance and gait training, fall prevention with appropriate assistive device. Occupational therapy for activities of daily living, equipment function, transfer evaluation and training, upper extremity range of motion and strengthening exercise. Nursing for evaluation of her bowel and bladder, medication regimen, skin care prevention of pressure ulcer, patient and financial services specialist education. Fall precaution, pressure ulcer precaution, cardiac precaution. Continue medical management per Medicine. Incentive spirometry. Nutritional support. This patient will benefit from acute inpatient rehabilitation placement when patient is medically stable and clear pending insurance authorization. Thank you for the consultation. Jayme Randall M.D. DR: LAUREL JOB#: [id number] CC:
[2020-07-11] MEDS ORDERED: cefTRIAXone 2 GM in D5W 55 ML IVPB SCH (23:00)
[2020-07-12] VITALS: BP 81/53
[2020-07-12 04:00] VITALS: BP 92/60
[2020-07-12 06:10] LABS: HEMATOCRIT 32.6 % (37.0-47.0); HEMOGLOBIN 11.6 G/DL (12.0-16.0); MEAN CORPUSCULAR VOLUME 87 FL (80-99); PLATELET COUNT 139 K/UL (150-450); RED BLOOD COUNT 3.73 M/UL (4.20-5.40); RED CELL DISTRIBUTION WIDTH 12.7 % (11.6-14.8); WHITE BLOOD COUNT 16.7 K/UL (4.8-10.8)
[2020-07-12] MEDS: HYDROmorphone 1mg/ml Carpuject IVP PRN (06:16)
[2020-07-12 06:42] LABS: ALBUMIN 2.3 G/DL (3.4-5.0); ALBUMIN/GLOBULIN RATIO 0.9 (1.0-2.7); BILIRUBIN,TOTAL 0.5 MG/DL (0.2-1.0); CALCIUM 6.9 MG/DL (8.5-10.1); CREATININE 1.4 MG/DL (0.55-1.30); PHOSPHORUS 2.5 MG/DL (2.5-4.9); POTASSIUM 4.2 MMOL/L (3.5-5.1)
[2020-07-12 08:00] VITALS: BP 107/65
[2020-07-12] MEDS: Docusate 100mg cap ORAL SCH ×3 (08:33→18:32)
[2020-07-12] MEDS: Enoxaparin 30mg Inj SUBQ SCH (08:38)
[2020-07-12] MEDS ORDERED: Naloxone 0.4mg/ml Inj IV PRN ×2 (09:00)
--- NOTE | 2020-07-12 09:04 | General Progress Note ---
Subjective Date patient seen: Jul 12, 2020 Time patient seen: 08:15 - am Allergies: Coded Allergies: NAPROXEN (Verified Allergy, Unknown, 07/10/20) Subjective REVIEW OF SYSTEMS: Denies rash, fever, chills, sweating, dizziness, drowsiness, blurred vision, sore throat, or change in weight. No shortness of breath or chest pain. No nausea, vomiting, diarrhea, or blood in the stool or urine. No dysuria. HISTORY OF PRESENT ILLNESS: This is a 65-year-old female who is being seen on the Med/Surg floor of [facility]. Patient is in bed and has been c/o severe pain. The pain has been minimally relieved on the Dilaudid 5 doses in the last 24hrs. She is more cooperative this morning and has gotten out of bed with PT. Objective Last 24 Hour Vital Signs Date Time Temp Pulse Resp B/P (MAP) Pulse Ox O2 Delivery O2 Flow Rate FiO2 07/12/20 08:00 98.1 93 15 107/65 (79) 97 07/12/20 06:46 98.4 07/12/20 04:00 98.4 93 22 92/60 (71) 98 07/12/20 00:00 98.2 86 20 81/53 (62) 96 07/11/20 23:17 98.2 07/11/20 22:13 Nasal Cannula 2.0 07/11/20 20:00 98.2 98 20 95/66 (76) 96 07/11/20 16:00 98.3 79 19 127/75 (92) 99 07/11/20 12:00 98.1 83 20 130/80 (97) 98 07/11/20 09:39 135/76 Intake and Output 07/11/20 07/12/20 19:00 07:00 Intake Total 800 ml 800 ml Balance 800 ml 800 ml Intake Oral 800 ml Other 800 ml # Voids 4 5 # Bowel Movements 1 1 Laboratory Tests 07/12/20 01:10: Urine Osmolality 402L, Urine Random Sodium 44 07/12/20 05:20: White Blood Count 16.7H, Red Blood Count 3.73L, Hemoglobin 11.6L, Hematocrit 32.6L, Mean Corpuscular Volume 87, Mean Corpuscular Hemoglobin 31.2H, Mean Corpuscular Hemoglobin Concent 35.7, Red Cell Distribution Width 12.7, Platelet Count 139L, Mean Platelet Volume 6.1L, Neutrophils (%) (Auto) , Lymphocytes (%) (Auto) , Monocytes (%) (Auto) , Eosinophils (%) (Auto) , Basophils (%) (Auto) , Differential Total Cells Counted 100, Neutrophils % (Manual) 63, Lymphocytes % (Manual) 4L, Monocytes % (Manual) 2, Eosinophils % (Manual) 0, Basophils % (Manual) 0, Band Neutrophils 31H, Platelet Estimate DecreasedL, Platelet Morphology Normal, Sodium Level 135L, Potassium Level 4.2, Chloride Level 101, Carbon Dioxide Level 27, Anion Gap 7, Blood Urea Nitrogen 23H, Creatinine 1.4H, Estimat Glomerular Filtration Rate 37.6, Glucose Level 93, Lactic Acid Level 1.20, Uric Acid 5.0, Calcium Level 6.9L, Phosphorus Level 2.5, Magnesium Level 1.8, Ferritin 267, Total Bilirubin 0.5, Gamma Glutamyl Transpeptidase 156H, Aspartate Amino Transf (AST/SGOT) 81H, Alanine Aminotransferase (ALT/SGPT) 74, Alkaline Phosphatase 107, C-Reactive Protein, Quantitative 14.7H, Pro-B-Type Natriuretic Peptide 3501H, Total Protein 4.8L, Albumin 2.3L, Globulin 2.5, Albumin/Globulin Ratio 0.9L, Vitamin B12 Level 883, Folate 12.7 Height (Feet): 4 Height (Inches): 11.00 Weight (Pounds): 103 Objective PHYSICAL EXAMINATION: GENERAL: Alert, awake, and oriented. LUNGS: Decreased breath sounds bilaterally. HEART: S1 and S2 regular. ABDOMEN: Tenderness to palpation. EXTREMITIES: No cyanosis. No clubbing. No edema. NEURO: No changes. Assessment/Plan Assessment/Plan: (1) Lumbar DDD/Spondylosis (2) Thoracic compression fractures (3) Rheumatoid arthritis (4) Multiple joint pain We will continue Dilaudid and start Fentanyl patch 25mcg Q72H D/w Dr. Hung and concurred. David Morris Jul 12, 2020 09:04
[2020-07-12] MEDS ORDERED: [UNRECOGNIZED DRUG - OTHER] PO (09:23)
[2020-07-12] MEDS ORDERED: CALCIUM PO (09:23)
[2020-07-12] MEDS ORDERED: PROLIA60 MG/1 ML SUBQ (09:26)
[2020-07-12] MEDS ORDERED: [UNRECOGNIZED DRUG - OTHER] PO (09:50)
[2020-07-12] MEDS ORDERED: FENTANYL1 EAC4 TDERMAL (09:57)
[2020-07-12 12:00] VITALS: BP 143/72
--- NOTE | 2020-07-12 12:09 | Infectious Diseases Prog Note ---
Assessment/Plan Assessment: Sepsis UTI- ?pyelo ( had n/v ) -u/a wbc 15-20, nit neg, leuk +2; ucx >100k GNR Afebrile Leukocytosis (on low dose prednisone but this is home med and no leukocytosis upon admission); increasing -CXR: no acute disease DIANNE, improving Nause/vomiting- r/o acute cholecystitis Elevated LFTs, improving -Abd US: Negative for gallstones. However, there is mild gallbladder wall thickening. Possibility of acalculous acute cholecystitis should be considered Peripancreatic cysts versus possible varices. Splenic hilar vascular structure, could represent a hilar varix or splenic artery aneurysm. Consider contrast CT for further evaluation. Bilateral nonobstructive intrarenal calculi. Unusual fluid within the endocervical canal or vagina, favor the latter Back pain, sp fall- Compression fx T10, T12, L1 -CT L spine: Compression fractures of T10, T12, and L1. Given diffuse osteopenia is difficult to date the fractures, however, given subtle sclerotic appearance, suggest chronic fractures. Recommend correlation with exam for location of pain and point tenderness.Cortes catheter likely within the vaginal canal. Recommend repositioning. Additional chronic findings as above. advanced RA HTN Anxiety disorder/MDD osteoporosis Plan: -Switch Ceftriaxone #3 to Meropenem pending ucx -f/u cx -Monitor CBC/CMP, temperatures -f/u HIV ab screen, Acute hep panel Thank you for this consultation. Will continue to follow along with you. Discussed with RN. Subjective Allergies: Coded Allergies: NAPROXEN (Verified Allergy, Unknown, 07/10/20) afebrile at 2l NC wbc increasing Cr and LFts improving Objective Last 24 Hour Vital Signs Date Time Temp Pulse Resp B/P (MAP) Pulse Ox O2 Delivery O2 Flow Rate FiO2 07/12/20 09:00 Nasal Cannula 2.0 07/12/20 08:00 98.1 93 15 107/65 (79) 97 07/12/20 06:46 98.4 07/12/20 04:00 98.4 93 22 92/60 (71) 98 07/12/20 00:00 98.2 86 20 81/53 (62) 96 07/11/20 23:17 98.2 07/11/20 22:13 Nasal Cannula 2.0 07/11/20 20:00 98.2 98 20 95/66 (76) 96 07/11/20 16:00 98.3 79 19 127/75 (92) 99 07/11/20 12:00 98.1 83 20 130/80 (97) 98 Height (Feet): 4 Height (Inches): 11.00 Weight (Pounds): 103 HEAD AND NECK: Atraumatic and normocephalic. CHEST: Clear to auscultation. HEART: S1 and S2. Regular rate and rhythm. ABDOMEN: Soft. No organomegaly. MUSCULOSKELETAL: Diffuse deformity in all of her joints. Positive for stooped postures and pain in the thoracic area. NEUROLOGIC: The patient is awake, alert, and oriented x3 with incidence of delirious, iatrogenic secondary to narcotic pain medication. Microbiology Date/Time Source Procedure Growth Status 07/10/20 22:00 Urine,Clean Catch Urine Culture - Preliminary Gram Negative Kaden Resulted Laboratory Tests Test 07/12/20 01:10 07/12/20 05:20 Urine Osmolality 402 mOsm/kg (429-449) L Urine Random Sodium 44 mmol/L (20-110) White Blood Count 16.7 K/UL (4.8-10.8) H Red Blood Count 3.73 M/UL (4.20-5.40) L Hemoglobin 11.6 G/DL (12.0-16.0) L Hematocrit 32.6 % (37.0-47.0) L Mean Corpuscular Volume 87 FL (80-99) Mean Corpuscular Hemoglobin 31.2 PG (27.0-31.0) H Mean Corpuscular Hemoglobin Concent 35.7 G/DL (32.0-36.0) Red Cell Distribution Width 12.7 % (11.6-14.8) Platelet Count 139 K/UL (150-450) L Mean Platelet Volume 6.1 FL (6.5-10.1) L Neutrophils (%) (Auto) % (45.0-75.0) Lymphocytes (%) (Auto) % (20.0-45.0) Monocytes (%) (Auto) % (1.0-10.0) Eosinophils (%) (Auto) % (0.0-3.0) Basophils (%) (Auto) % (0.0-2.0) Differential Total Cells Counted 100 Neutrophils % (Manual) 63 % (45-75) Lymphocytes % (Manual) 4 % (20-45) L Monocytes % (Manual) 2 % (1-10) Eosinophils % (Manual) 0 % (0-3) Basophils % (Manual) 0 % (0-2) Band Neutrophils 31 % (0-8) H Platelet Estimate Decreased L Platelet Morphology Normal Sodium Level 135 MMOL/L (136-145) L Potassium Level 4.2 MMOL/L (3.5-5.1) Chloride Level 101 MMOL/L (98-107) Carbon Dioxide Level 27 MMOL/L (21-32) Anion Gap 7 mmol/L (5-15) Blood Urea Nitrogen 23 mg/dL (7-18) H Creatinine 1.4 MG/DL (0.55-1.30) H Estimat Glomerular Filtration Rate 37.6 mL/min (>60) Glucose Level 93 MG/DL (74-106) Lactic Acid Level 1.20 mmol/L (0.4-2.0) Uric Acid 5.0 MG/DL (2.6-7.2) Calcium Level 6.9 MG/DL (8.5-10.1) L Phosphorus Level 2.5 MG/DL (2.5-4.9) Magnesium Level 1.8 MG/DL (1.8-2.4) Ferritin 267 NG/ML (8-388) Total Bilirubin 0.5 MG/DL (0.2-1.0) Gamma Glutamyl Transpeptidase 156 U/L (5-85) H Aspartate Amino Transf (AST/SGOT) 81 U/L (15-37) H Alanine Aminotransferase (ALT/SGPT) 74 U/L (12-78) Alkaline Phosphatase 107 U/L (46-116) C-Reactive Protein, Quantitative 14.7 mg/dL (0.00-0.90) H Pro-B-Type Natriuretic Peptide 3501 pg/mL (0-125) H Total Protein 4.8 G/DL (6.4-8.2) L Albumin 2.3 G/DL (3.4-5.0) L Globulin 2.5 g/dL Albumin/Globulin Ratio 0.9 (1.0-2.7) L Vitamin B12 Level 883 PG/ML (193-986) Folate 12.7 NG/ML (8.6-58.9) Current Medications Medications (Trade) Dose Ordered Sig/Jessica Route PRN Reason Start Time Stop Time Status Last Admin Dose Admin Acetaminophen (Tylenol) 650 mg Q6H PRN ORAL Mild Pain (Pain Scale 1-3) 07/12/20 09:15 08/11/20 09:14 Acetaminophen (Tylenol) 650 mg Q6H PRN ORAL Temp >100.5 07/12/20 09:15 08/11/20 09:14 Ceftriaxone Sodium 2 gm/ Dextrose 55 ml @ 110 mls/hr Q24H IVPB 07/11/20 23:00 07/18/20 22:59 07/11/20 22:48 Dextrose/ Electrolytes 1,000 ml @ 50 mls/hr Q20H IV 07/11/20 14:00 08/10/20 13:59 07/12/20 11:23 Docusate Sodium (Colace) 100 mg TID ORAL 07/11/20 18:00 08/10/20 01:44 07/12/20 08:33 Enoxaparin Sodium (Lovenox) 30 mg DAILY SUBQ 07/12/20 09:00 10/10/20 08:59 Escitalopram Oxalate (Lexapro) 10 mg DAILY ORAL 07/11/20 09:00 08/10/20 08:59 07/12/20 08:33 Fentanyl (Duragesic) 1 patch Q72H TDERMAL 07/12/20 11:00 07/19/20 10:59 07/12/20 11:26 Hydromorphone HCl (Dilaudid) 1 mg Q4H PRN IVP Severe Pain (Pain Scale 7-10) 07/11/20 09:30 07/18/20 01:44 07/12/20 06:16 Metoclopramide HCl (Reglan) 10 mg Q6H PRN IVP Nausea & Vomiting 07/11/20 01:45 08/10/20 01:44 Miscellaneous Medication (fentaNYL Destruction) 1 ea Q72H MISC 07/15/20 09:00 08/14/20 08:59 Mupirocin (Bactroban Oint) 1 applic THREE TIMES A DAY PRN TOPIC cat scratches and bites 07/11/20 01:45 07/16/20 01:44 Naloxone HCl (Narcan) 0.1 mg PRN IV Sedation scale 3 or 4 07/12/20 09:00 Pantoprazole (Protonix) 40 mg BID ORAL 07/11/20 13:15 08/10/20 01:44 07/11/20 18:27 Polyethylene Glycol (Miralax) 17 gm QHS ORAL 07/11/20 21:00 08/10/20 20:59 07/11/20 21:39 Prednisone (predniSONE) 10 mg DAILY ORAL 07/11/20 09:00 08/10/20 08:59 07/12/20 08:33 Pushpa Tejeda M.D. Jul 12, 2020 12:09
--- NOTE | 2020-07-12 12:16 | Nephrology Progress Note ---
Assessment/Plan Problem List: (1) DIANNE (acute kidney injury) (2) Dehydration (3) Electrolyte imbalance (4) UTI (urinary tract infection) Assessment Renal failure, likely dehydration UTI Electrolyte abnormalities Elevated liver function tests History of rheumatoid arthritis Plan Stop meloxicam Stop lisinopril Protonix twice daily Monitor renal parameters Avoid nephrotoxic's Urine studies Slow hydration Per orders Subjective ROS Limited/Unobtainable: No Constitutional: Reports: malaise, weakness Objective Objective Last 24 Hour Vital Signs Date Time Temp Pulse Resp B/P (MAP) Pulse Ox O2 Delivery O2 Flow Rate FiO2 07/12/20 09:00 Nasal Cannula 2.0 07/12/20 08:00 98.1 93 15 107/65 (79) 97 07/12/20 06:46 98.4 07/12/20 04:00 98.4 93 22 92/60 (71) 98 07/12/20 00:00 98.2 86 20 81/53 (62) 96 07/11/20 23:17 98.2 07/11/20 22:13 Nasal Cannula 2.0 07/11/20 20:00 98.2 98 20 95/66 (76) 96 07/11/20 16:00 98.3 79 19 127/75 (92) 99 Intake and Output 07/11/20 07/12/20 19:00 07:00 Intake Total 800 ml 850 ml Balance 800 ml 850 ml Intake Oral 800 ml IV Total 50 ml Other 800 ml # Voids 4 5 # Bowel Movements 1 1 Current Medications Medications (Trade) Dose Ordered Sig/Jessica Route PRN Reason Start Time Stop Time Status Last Admin Dose Admin Acetaminophen (Tylenol) 650 mg Q6H PRN ORAL Mild Pain (Pain Scale 1-3) 07/12/20 09:15 08/11/20 09:14 Acetaminophen (Tylenol) 650 mg Q6H PRN ORAL Temp >100.5 07/12/20 09:15 08/11/20 09:14 Dextrose/ Electrolytes 1,000 ml @ 50 mls/hr Q20H IV 07/11/20 14:00 08/10/20 13:59 07/12/20 11:23 Docusate Sodium (Colace) 100 mg TID ORAL 07/11/20 18:00 08/10/20 01:44 07/12/20 08:33 Enoxaparin Sodium (Lovenox) 30 mg DAILY SUBQ 07/12/20 09:00 10/10/20 08:59 Escitalopram Oxalate (Lexapro) 10 mg DAILY ORAL 07/11/20 09:00 08/10/20 08:59 07/12/20 08:33 Fentanyl (Duragesic) 1 patch Q72H TDERMAL 07/12/20 11:00 07/19/20 10:59 07/12/20 11:26 Hydromorphone HCl (Dilaudid) 1 mg Q4H PRN IVP Severe Pain (Pain Scale 7-10) 07/11/20 09:30 07/18/20 01:44 07/12/20 06:16 Meropenem 1 gm/ Sodium Chloride 55 ml @ 110 mls/hr Q12HR IVPB 07/12/20 12:15 07/17/20 12:14 UNV Metoclopramide HCl (Reglan) 10 mg Q6H PRN IVP Nausea & Vomiting 07/11/20 01:45 08/10/20 01:44 Miscellaneous Medication (fentaNYL Destruction) 1 ea Q72H MISC 07/15/20 09:00 08/14/20 08:59 Mupirocin (Bactroban Oint) 1 applic THREE TIMES A DAY PRN TOPIC cat scratches and bites 07/11/20 01:45 07/16/20 01:44 Naloxone HCl (Narcan) 0.1 mg PRN IV Sedation scale 3 or 4 07/12/20 09:00 Pantoprazole (Protonix) 40 mg BID ORAL 07/11/20 13:15 08/10/20 01:44 07/11/20 18:27 Polyethylene Glycol (Miralax) 17 gm QHS ORAL 07/11/20 21:00 08/10/20 20:59 07/11/20 21:39 Prednisone (predniSONE) 10 mg DAILY ORAL 07/11/20 09:00 08/10/20 08:59 07/12/20 08:33 Laboratory Tests 07/12/20 01:10: Urine Osmolality 402L, Urine Random Sodium 44 07/12/20 05:20: White Blood Count 16.7H, Red Blood Count 3.73L, Hemoglobin 11.6L, Hematocrit 32.6L, Mean Corpuscular Volume 87, Mean Corpuscular Hemoglobin 31.2H, Mean Corpuscular Hemoglobin Concent 35.7, Red Cell Distribution Width 12.7, Platelet Count 139L, Mean Platelet Volume 6.1L, Neutrophils (%) (Auto) , Lymphocytes (%) (Auto) , Monocytes (%) (Auto) , Eosinophils (%) (Auto) , Basophils (%) (Auto) , Differential Total Cells Counted 100, Neutrophils % (Manual) 63, Lymphocytes % (Manual) 4L, Monocytes % (Manual) 2, Eosinophils % (Manual) 0, Basophils % (Manual) 0, Band Neutrophils 31H, Platelet Estimate DecreasedL, Platelet Morphology Normal, Sodium Level 135L, Potassium Level 4.2, Chloride Level 101, Carbon Dioxide Level 27, Anion Gap 7, Blood Urea Nitrogen 23H, Creatinine 1.4H, Estimat Glomerular Filtration Rate 37.6, Glucose Level 93, Lactic Acid Level 1.20, Uric Acid 5.0, Calcium Level 6.9L, Phosphorus Level 2.5, Magnesium Level 1.8, Ferritin 267, Total Bilirubin 0.5, Gamma Glutamyl Transpeptidase 156H, Aspartate Amino Transf (AST/SGOT) 81H, Alanine Aminotransferase (ALT/SGPT) 74, Alkaline Phosphatase 107, C-Reactive Protein, Quantitative 14.7H, Pro-B-Type Natriuretic Peptide 3501H, Total Protein 4.8L, Albumin 2.3L, Globulin 2.5, Albumin/Globulin Ratio 0.9L, Vitamin B12 Level 883, Folate 12.7 Height (Feet): 4 Height (Inches): 11.00 Weight (Pounds): 103 General Appearance: no apparent distress Cardiovascular: tachycardia Respiratory/Chest: decreased breath sounds Abdomen: distended Deepak Joseph MD Jul 12, 2020 12:16
--- NOTE | 2020-07-12 13:15 | General Progress Note ---
Subjective Allergies: Coded Allergies: NAPROXEN (Verified Allergy, Unknown, 07/10/20) Objective Last 24 Hour Vital Signs Date Time Temp Pulse Resp B/P (MAP) Pulse Ox O2 Delivery O2 Flow Rate FiO2 07/12/20 11:56 98.1 07/12/20 09:00 Nasal Cannula 2.0 07/12/20 08:00 98.1 93 15 107/65 (79) 97 07/12/20 06:46 98.4 07/12/20 04:00 98.4 93 22 92/60 (71) 98 07/12/20 00:00 98.2 86 20 81/53 (62) 96 07/11/20 23:17 98.2 07/11/20 22:13 Nasal Cannula 2.0 07/11/20 20:00 98.2 98 20 95/66 (76) 96 07/11/20 16:00 98.3 79 19 127/75 (92) 99 Intake and Output 07/11/20 07/12/20 19:00 07:00 Intake Total 800 ml 850 ml Balance 800 ml 850 ml Intake Oral 800 ml IV Total 50 ml Other 800 ml # Voids 4 5 # Bowel Movements 1 1 Laboratory Tests 07/12/20 01:10: Urine Osmolality 402L, Urine Random Sodium 44 07/12/20 05:20: White Blood Count 16.7H, Red Blood Count 3.73L, Hemoglobin 11.6L, Hematocrit 32.6L, Mean Corpuscular Volume 87, Mean Corpuscular Hemoglobin 31.2H, Mean Corpuscular Hemoglobin Concent 35.7, Red Cell Distribution Width 12.7, Platelet Count 139L, Mean Platelet Volume 6.1L, Neutrophils (%) (Auto) , Lymphocytes (%) (Auto) , Monocytes (%) (Auto) , Eosinophils (%) (Auto) , Basophils (%) (Auto) , Differential Total Cells Counted 100, Neutrophils % (Manual) 63, Lymphocytes % (Manual) 4L, Monocytes % (Manual) 2, Eosinophils % (Manual) 0, Basophils % (Manual) 0, Band Neutrophils 31H, Platelet Estimate DecreasedL, Platelet Morphology Normal, Sodium Level 135L, Potassium Level 4.2, Chloride Level 101, Carbon Dioxide Level 27, Anion Gap 7, Blood Urea Nitrogen 23H, Creatinine 1.4H, Estimat Glomerular Filtration Rate 37.6, Glucose Level 93, Lactic Acid Level 1.20, Uric Acid 5.0, Calcium Level 6.9L, Phosphorus Level 2.5, Magnesium Level 1.8, Ferritin 267, Total Bilirubin 0.5, Gamma Glutamyl Transpeptidase 156H, Aspartate Amino Transf (AST/SGOT) 81H, Alanine Aminotransferase (ALT/SGPT) 74, Alkaline Phosphatase 107, C-Reactive Protein, Quantitative 14.7H, Pro-B-Type Natriuretic Peptide 3501H, Total Protein 4.8L, Albumin 2.3L, Globulin 2.5, Albumin/Globulin Ratio 0.9L, Vitamin B12 Level 883, Folate 12.7 Height (Feet): 4 Height (Inches): 11.00 Weight (Pounds): 103 Assessment/Plan Assessment/Plan: S: I am in pain O: seems comfortable, pain well managed PHYSICAL EXAMINATION:HEAD AND NECK: Atraumatic and normocephalic. CHEST: Clear to auscultation.HEART: S1 and S2. Regular rate and rhythm. ABDOMEN: Soft. No organomegaly.MUSCULOSKELETAL: Diffuse deformity in all of her joints. Positive for stooped postures and pain in the thoracic area. NEUROLOGIC: The patient is awake, alert, and oriented x3 with incidence of delirious, iatrogenic secondary to narcotic pain medication. IMAGING: Spine CT dated July 10, reviewed shows compression fractures of T10, T12, and L1. LABORATORY DATA: Labs dated July 12 ASSESSMENT AND PLAN: 1. Mechanical fall and multiple compression deformity fractures in multiple ages. 2. UTI. 3. Pain management. 4. Rheumatoid arthritis and severe debilitating arthritic disease. 5. Hypertension. 6. Anxiety and depression. 7. GI and DVT prophylaxis. PLAN OF CARE: pain management ARU/SNIF placement PT.PT eval anemia panel Jessica Ag MD Jul 12, 2020 13:15
[2020-07-12 13:29] LABS: % IRON SATURATION 3 % (15-50); IRON 5 ug/dL (50-175); TOTAL IRON BINDING CAPACITY 186 ug/dL (250-450)
[2020-07-12] MEDS ORDERED: Hydromorphone 0.5mg/0.5ml inj SUBQ SCH (13:30)
[2020-07-12] MEDS: D5NS 1,000 ML IV SCH (14:09)
[2020-07-12] MEDS: Meropenem 1 GM in NS 55 ML IVPB SCH (15:22)
[2020-07-12 16:00] VITALS: BP 125/65
[2020-07-12] MEDS: HYDROmorphone 1mg/ml Carpuject SUBQ PRN ×2 (18:18→22:22)
[2020-07-12 20:00] VITALS: BP 143/92
[2020-07-12] MEDS: Miralax 17gm pkt ORAL SCH (21:00)
--- NOTE | 2020-07-12 23:43 | Psych Consult Progress Note ---
Psychiatry Progress Note Psychiatry Progress Note Medications Current Medications Medications (Trade) Dose Ordered Sig/Jessica Route PRN Reason Start Time Stop Time Status Last Admin Dose Admin Acetaminophen (Tylenol) 650 mg Q6H PRN ORAL Mild Pain (Pain Scale 1-3) 07/12/20 09:15 08/11/20 09:14 Acetaminophen (Tylenol) 650 mg Q6H PRN ORAL Temp >100.5 07/12/20 09:15 08/11/20 09:14 Dextrose/Sodium Chloride 1,000 ml @ 50 mls/hr Q20H IV 07/12/20 13:30 08/11/20 13:29 07/12/20 14:09 Docusate Sodium (Colace) 100 mg TID ORAL 07/11/20 18:00 08/10/20 01:44 07/12/20 14:08 Enoxaparin Sodium (Lovenox) 30 mg DAILY SUBQ 07/12/20 09:00 10/10/20 08:59 Escitalopram Oxalate (Lexapro) 10 mg DAILY ORAL 07/11/20 09:00 08/10/20 08:59 07/12/20 08:33 Fentanyl (Duragesic) 1 patch Q72H TDERMAL 07/12/20 11:00 07/19/20 10:59 07/12/20 11:26 Hydromorphone HCl (Dilaudid) 1 mg Q4H PRN SUBQ Severe Pain (Pain Scale 7-10) 07/12/20 13:30 07/19/20 13:29 07/12/20 22:22 Meropenem 1 gm/ Sodium Chloride 55 ml @ 110 mls/hr Q12HR IVPB 07/12/20 14:00 07/17/20 13:59 07/12/20 15:22 Metoclopramide HCl (Reglan) 10 mg Q6H PRN IVP Nausea & Vomiting 07/11/20 01:45 08/10/20 01:44 Miscellaneous Medication (fentaNYL Destruction) 1 ea Q72H MISC 07/15/20 09:00 08/14/20 08:59 Mupirocin (Bactroban Oint) 1 applic THREE TIMES A DAY PRN TOPIC cat scratches and bites 07/11/20 01:45 07/16/20 01:44 Naloxone HCl (Narcan) 0.1 mg PRN IV Sedation scale 3 or 4 07/12/20 09:00 Pantoprazole (Protonix) 40 mg BID ORAL 07/11/20 13:15 08/10/20 01:44 07/12/20 18:16 Polyethylene Glycol (Miralax) 17 gm QHS ORAL 07/11/20 21:00 08/10/20 20:59 07/11/20 21:39 Prednisone (predniSONE) 10 mg DAILY ORAL 07/11/20 09:00 08/10/20 08:59 07/12/20 08:33 Allergies: Coded Allergies: NAPROXEN (Verified Allergy, Unknown, 07/10/20) Objective Data Height (Feet): 4 Height (Inches): 11.00 Weight (Pounds): 103 General Appearance: no apparent distress Iveth Argueta MD Jul 12, 2020 23:43
[2020-07-13] VITALS: BP 159/77
--- NOTE | 2020-07-13 00:45 | Consultation ---
DATE OF CONSULTATION: 07/11/2020 CONSULTING PHYSICIAN: Iveth Argueta MD HISTORY OF PRESENT ILLNESS: This is a 65-year-old female with a history of hypertension, osteoporosis. I was asked by Dr. Ag to see this patient. The patient has severe rheumatic arthritis and complained severe pain. Apparently, she was walking, lost her balance, and fell. Patient complained of 10/10 pain. She has fentanyl patch. In addition, complained about depressed mood, anhedonia, worthlessness, anxiety. Patient also diagnosed with UTI. The patient has history of anxiety disorder and major depressive disorder. The patient is denying any suicidal ideation. No psychotic or manic symptoms noted. PAST PSYCHIATRIC HISTORY: Depression, anxiety. No suicide attempt. PAST MEDICAL HISTORY: Significant for bilateral knee injuries with surgeries, rheumatic arthritis, surgery, chronic constipation, hypertension, severe arthritis. ALLERGIES: Naprosyn. SUBSTANCE ABUSE HISTORY: No known history of illicit drug use or alcohol. MENTAL STATUS EXAMINATION: Patient is alert, oriented times self, place, situation. Mood is depressed. Affect is blunted, congruent with mood. Thought process is concrete. Thought content, no suicidal or homicidal ideation. Cognition is intact. Insight and judgment fair. ASSESSMENT: [place] I Major depressive disorder. Anxiety disorder. [place] II Deferred. [place] III As above. [place] IV Low. [place] V 20. PLAN: 1. Start patient on Lexapro 10 mg in the morning. 2. PRN medication. 3. Provide the patient with reality orientation. Iveth Argueta M.D. DR: VINH JOB#: [id number] CC:
[2020-07-13] MEDS: HYDROmorphone 1mg/ml Carpuject SUBQ PRN ×6 (02:34→22:44)
[2020-07-13 04:00] VITALS: BP 130/90
[2020-07-13 07:53] LABS: HEMATOCRIT 32.2 % (37.0-47.0); HEMOGLOBIN 11.4 G/DL (12.0-16.0); MEAN CORPUSCULAR VOLUME 88 FL (80-99); PLATELET COUNT 110 K/UL (150-450); RED BLOOD COUNT 3.66 M/UL (4.20-5.40); RED CELL DISTRIBUTION WIDTH 12.3 % (11.6-14.8); WHITE BLOOD COUNT 13.2 K/UL (4.8-10.8)
[2020-07-13 08:00] VITALS: BP 128/68
[2020-07-13] MEDS: Docusate 100mg cap ORAL SCH ×3 (08:25→17:07)
[2020-07-13] MEDS: D5NS 1,000 ML IV SCH (08:26)
[2020-07-13] MEDS: Meropenem 1 GM in NS 55 ML IVPB SCH (08:26)
[2020-07-13] MEDS: Metoclopramide 10mg/2ml Inj IVP PRN ×2 (08:52→14:56)
[2020-07-13] MEDS: Enoxaparin 30mg Inj SUBQ SCH (08:53)
[2020-07-13 08:54] LABS: ALBUMIN 2.3 G/DL (3.4-5.0); ALBUMIN/GLOBULIN RATIO 0.7 (1.0-2.7); BILIRUBIN,TOTAL 0.7 MG/DL (0.2-1.0); CALCIUM 6.6 MG/DL (8.5-10.1); CREATININE 1.3 MG/DL (0.55-1.30); PHOSPHORUS 1.6 MG/DL (2.5-4.9); POTASSIUM 3.2 MMOL/L (3.5-5.1)
--- NOTE | 2020-07-13 11:20 | Infectious Diseases Prog Note ---
Assessment/Plan Assessment: Sepsis UTI- ?pyelo ( had n/v )( dysuria improving) -u/a wbc 15-20, nit neg, leuk +2; ucx >100k p mirabilis Afebrile Leukocytosis (on low dose prednisone but this is home med and no leukocytosis upon admission); improving -CXR: no acute disease DIANNE, improving Nause/vomiting- r/o acute cholecystitis Elevated LFTs, improving -Abd US: Negative for gallstones. However, there is mild gallbladder wall thickening. Possibility of acalculous acute cholecystitis should be considered Peripancreatic cysts versus possible varices. Splenic hilar vascular structure, could represent a hilar varix or splenic artery aneurysm. Consider contrast CT for further evaluation. Bilateral nonobstructive intrarenal calculi. Unusual fluid within the endocervical canal or vagina, favor the latter Back pain, sp fall- Compression fx T10, T12, L1 -CT L spine: Compression fractures of T10, T12, and L1. Given diffuse osteopenia is difficult to date the fractures, however, given subtle sclerotic appearance, suggest chronic fractures. Recommend correlation with exam for location of pain and point tenderness.Cortes catheter likely within the vaginal canal. Recommend repositioning. Additional chronic findings as above. COVID19 neg x 1 advanced RA HTN Anxiety disorder/MDD osteoporosis Plan: -restart IV Rocephin # 1 07/13 Sp Meropenem # 2 07/12 Sp Ceftriaxone #3 -f/u cx -Monitor CBC/CMP, temperatures -f/u HIV ab screen, Acute hep panel Thank you for this consultation. Will continue to follow along with you. Discussed with RN. Subjective Allergies: Coded Allergies: NAPROXEN (Verified Allergy, Unknown, 07/10/20) afebrile WBC is improving Objective Last 24 Hour Vital Signs Date Time Temp Pulse Resp B/P (MAP) Pulse Ox O2 Delivery O2 Flow Rate FiO2 07/13/20 09:00 Nasal Cannula 2.0 07/13/20 08:00 97.7 94 18 128/68 (88) 94 07/13/20 04:00 97.2 79 16 130/90 (103) 97 07/13/20 00:00 98.1 77 16 159/77 (104) 98 07/12/20 21:00 Nasal Cannula 2.0 07/12/20 20:00 97.9 83 18 143/92 (109) 97 07/12/20 18:48 98.3 07/12/20 16:00 98.3 79 16 125/65 (85) 97 07/12/20 14:39 98.1 07/12/20 12:00 98.2 70 16 143/72 (95) 97 07/12/20 11:56 98.1 Height (Feet): 4 Height (Inches): 11.00 Weight (Pounds): 103 HEENT: atraumatic Respiratory/Chest: lungs clear Cardiovascular: normal rate Abdomen: soft, non tender Microbiology Date/Time Source Procedure Growth Status 07/12/20 11:41 Nasopharynx SARS-CoV-2 RdRp Gene Assay - Final Complete 07/10/20 22:00 Urine,Clean Catch Urine Culture - Final Proteus Mirabilis Complete Laboratory Tests Test 07/12/20 16:31 07/13/20 07:10 Stool Occult Blood Positive (NEGATIVE) White Blood Count 13.2 K/UL (4.8-10.8) H Red Blood Count 3.66 M/UL (4.20-5.40) L Hemoglobin 11.4 G/DL (12.0-16.0) L Hematocrit 32.2 % (37.0-47.0) L Mean Corpuscular Volume 88 FL (80-99) Mean Corpuscular Hemoglobin 31.2 PG (27.0-31.0) H Mean Corpuscular Hemoglobin Concent 35.5 G/DL (32.0-36.0) Red Cell Distribution Width 12.3 % (11.6-14.8) Platelet Count 110 K/UL (150-450) L Mean Platelet Volume 6.9 FL (6.5-10.1) Neutrophils (%) (Auto) % (45.0-75.0) Lymphocytes (%) (Auto) % (20.0-45.0) Monocytes (%) (Auto) % (1.0-10.0) Eosinophils (%) (Auto) % (0.0-3.0) Basophils (%) (Auto) % (0.0-2.0) Differential Total Cells Counted 100 Neutrophils % (Manual) 87 % (45-75) H Lymphocytes % (Manual) 2 % (20-45) L Monocytes % (Manual) 1 % (1-10) Eosinophils % (Manual) 0 % (0-3) Basophils % (Manual) 0 % (0-2) Band Neutrophils 10 % (0-8) H Platelet Estimate Decreased L Platelet Morphology Normal Red Blood Cell Morphology Normal Sodium Level 133 MMOL/L (136-145) L Potassium Level 3.2 MMOL/L (3.5-5.1) L Chloride Level 100 MMOL/L (98-107) Carbon Dioxide Level 23 MMOL/L (21-32) Anion Gap 10 mmol/L (5-15) Blood Urea Nitrogen 19 mg/dL (7-18) H Creatinine 1.3 MG/DL (0.55-1.30) Estimat Glomerular Filtration Rate 41.0 mL/min (>60) Glucose Level 107 MG/DL (74-106) H Uric Acid 4.5 MG/DL (2.6-7.2) Calcium Level 6.6 MG/DL (8.5-10.1) L Phosphorus Level 1.6 MG/DL (2.5-4.9) L Magnesium Level 2.0 MG/DL (1.8-2.4) Total Bilirubin 0.7 MG/DL (0.2-1.0) Aspartate Amino Transf (AST/SGOT) 34 U/L (15-37) Alanine Aminotransferase (ALT/SGPT) 53 U/L (12-78) Alkaline Phosphatase 101 U/L (46-116) C-Reactive Protein, Quantitative 23.7 mg/dL (0.00-0.90) H Pro-B-Type Natriuretic Peptide 2757 pg/mL (0-125) H Total Protein 5.4 G/DL (6.4-8.2) L Albumin 2.3 G/DL (3.4-5.0) L Globulin 3.1 g/dL Albumin/Globulin Ratio 0.7 (1.0-2.7) L Current Medications Medications (Trade) Dose Ordered Sig/Ejssica Route PRN Reason Start Time Stop Time Status Last Admin Dose Admin Acetaminophen (Tylenol) 650 mg Q6H PRN ORAL Mild Pain (Pain Scale 1-3) 07/12/20 09:15 08/11/20 09:14 Acetaminophen (Tylenol) 650 mg Q6H PRN ORAL Temp >100.5 07/12/20 09:15 08/11/20 09:14 Dextrose/Sodium Chloride 1,000 ml @ 50 mls/hr Q20H IV 07/12/20 13:30 08/11/20 13:29 07/13/20 08:26 Docusate Sodium (Colace) 100 mg TID ORAL 07/11/20 18:00 08/10/20 01:44 07/13/20 08:25 Enoxaparin Sodium (Lovenox) 30 mg DAILY SUBQ 07/12/20 09:00 10/10/20 08:59 07/13/20 08:53 Escitalopram Oxalate (Lexapro) 10 mg DAILY ORAL 07/11/20 09:00 08/10/20 08:59 07/13/20 08:25 Fentanyl (Duragesic) 1 patch Q72H TDERMAL 07/12/20 11:00 07/19/20 10:59 07/12/20 11:26 Hydromorphone HCl (Dilaudid) 1 mg Q4H PRN SUBQ Severe Pain (Pain Scale 7-10) 07/12/20 13:30 07/19/20 13:29 07/13/20 10:28 Meropenem 1 gm/ Sodium Chloride 55 ml @ 110 mls/hr Q12HR IVPB 07/12/20 14:00 07/17/20 13:59 07/13/20 08:26 Metoclopramide HCl (Reglan) 10 mg Q6H PRN IVP Nausea & Vomiting 07/11/20 01:45 08/10/20 01:44 07/13/20 08:52 Miscellaneous Medication (fentaNYL Destruction) 1 ea Q72H MISC 07/15/20 09:00 08/14/20 08:59 Mupirocin (Bactroban Oint) 1 applic THREE TIMES A DAY PRN TOPIC cat scratches and bites 07/11/20 01:45 07/16/20 01:44 Naloxone HCl (Narcan) 0.1 mg PRN IV Sedation scale 3 or 4 07/12/20 09:00 Pantoprazole (Protonix) 40 mg BID ORAL 07/11/20 13:15 08/10/20 01:44 07/13/20 08:25 Polyethylene Glycol (Miralax) 17 gm QHS ORAL 07/11/20 21:00 08/10/20 20:59 07/11/20 21:39 Potassium Phosphate 20 mm/ Sodium Chloride 281.6667 ml @ 46.944 m... ONCE ONCE IV 07/13/20 12:00 07/13/20 17:59 Prednisone (predniSONE) 10 mg DAILY ORAL 07/11/20 09:00 08/10/20 08:59 07/13/20 08:25 Jama Matute MD Jul 13, 2020 11:20
[2020-07-13 12:00] VITALS: BP 144/87
[2020-07-13] MEDS ORDERED: Potassium Phosphate 20 MM in NS 275 ML IV ONE (12:00)
[2020-07-13] MEDS: cefTRIAXone 2 GM in D5W 55 ML IVPB SCH (12:13)
--- NOTE | 2020-07-13 12:30 | Nephrology Progress Note ---
Assessment/Plan Problem List: (1) DIANNE (acute kidney injury) (2) Dehydration (3) Electrolyte imbalance (4) UTI (urinary tract infection) Assessment Renal failure, likely dehydration UTI Electrolyte abnormalities Elevated liver function tests History of rheumatoid arthritis Plan July 13: Potassium phosphate IV ordered. IV fluid discontinued. Patient tolerating p.o. Serum creatinine baseline. Continue to monitor electrolytes. Continue per consultants. Previously: Stop meloxicam Stop lisinopril Protonix twice daily Monitor renal parameters Avoid nephrotoxic's Urine studies Slow hydration Per orders Subjective ROS Limited/Unobtainable: No Constitutional: Reports: malaise Objective Objective Last 24 Hour Vital Signs Date Time Temp Pulse Resp B/P (MAP) Pulse Ox O2 Delivery O2 Flow Rate FiO2 07/13/20 09:00 Nasal Cannula 2.0 07/13/20 08:00 97.7 94 18 128/68 (88) 94 07/13/20 04:00 97.2 79 16 130/90 (103) 97 07/13/20 00:00 98.1 77 16 159/77 (104) 98 07/12/20 21:00 Nasal Cannula 2.0 07/12/20 20:00 97.9 83 18 143/92 (109) 97 07/12/20 18:48 98.3 07/12/20 16:00 98.3 79 16 125/65 (85) 97 07/12/20 14:39 98.1 Intake and Output 07/12/20 07/13/20 19:00 07:00 Intake Total 610 ml 1150 ml Output Total 9 ml Balance 610 ml 1141 ml IV Total 610 ml 750 ml Other 400 ml Output Urine Total 9 ml # Voids 3 # Bowel Movements 1 2 Current Medications Medications (Trade) Dose Ordered Sig/Jessica Route PRN Reason Start Time Stop Time Status Last Admin Dose Admin Acetaminophen (Tylenol) 650 mg Q6H PRN ORAL Mild Pain (Pain Scale 1-3) 07/12/20 09:15 08/11/20 09:14 Acetaminophen (Tylenol) 650 mg Q6H PRN ORAL Temp >100.5 07/12/20 09:15 08/11/20 09:14 Ceftriaxone Sodium 2 gm/ Dextrose 55 ml @ 110 mls/hr Q24H IVPB 07/13/20 13:00 07/20/20 12:59 07/13/20 12:13 Docusate Sodium (Colace) 100 mg TID ORAL 07/11/20 18:00 08/10/20 01:44 07/13/20 12:13 Enoxaparin Sodium (Lovenox) 30 mg DAILY SUBQ 07/12/20 09:00 10/10/20 08:59 07/13/20 08:53 Ergocalciferol (Drisdol) 50,000 intlu QWEEK ORAL 07/13/20 12:30 08/12/20 12:29 UNV Escitalopram Oxalate (Lexapro) 10 mg DAILY ORAL 07/11/20 09:00 08/10/20 08:59 07/13/20 08:25 Fentanyl (Duragesic) 1 patch Q72H TDERMAL 07/12/20 11:00 07/19/20 10:59 07/12/20 11:26 Hydromorphone HCl (Dilaudid) 1 mg Q4H PRN SUBQ Severe Pain (Pain Scale 7-10) 07/12/20 13:30 07/19/20 13:29 07/13/20 10:28 Metoclopramide HCl (Reglan) 10 mg Q6H PRN IVP Nausea & Vomiting 07/11/20 01:45 08/10/20 01:44 07/13/20 08:52 Miscellaneous Medication (fentaNYL Destruction) 1 ea Q72H MISC 07/15/20 09:00 08/14/20 08:59 Mupirocin (Bactroban Oint) 1 applic THREE TIMES A DAY PRN TOPIC cat scratches and bites 07/11/20 01:45 07/16/20 01:44 Naloxone HCl (Narcan) 0.1 mg PRN IV Sedation scale 3 or 4 07/12/20 09:00 Pantoprazole (Protonix) 40 mg BID ORAL 07/11/20 13:15 08/10/20 01:44 07/13/20 08:25 Patient Own Medication (Patient's Own Med) 1 ea DAILY ORAL 07/14/20 09:00 08/13/20 08:59 UNV Polyethylene Glycol (Miralax) 17 gm QHS ORAL 07/11/20 21:00 08/10/20 20:59 07/11/20 21:39 Potassium Phosphate 20 mm/ Sodium Chloride 281.6667 ml @ 46.944 m... ONCE ONCE IV 07/13/20 12:00 07/13/20 17:59 07/13/20 12:13 Prednisone (predniSONE) 10 mg DAILY ORAL 07/11/20 09:00 08/10/20 08:59 07/13/20 08:25 Laboratory Tests 07/12/20 16:31: Stool Occult Blood Positive 07/13/20 07:10: White Blood Count 13.2H, Red Blood Count 3.66L, Hemoglobin 11.4L, Hematocrit 32.2L, Mean Corpuscular Volume 88, Mean Corpuscular Hemoglobin 31.2H, Mean Corpuscular Hemoglobin Concent 35.5, Red Cell Distribution Width 12.3, Platelet Count 110L, Mean Platelet Volume 6.9, Neutrophils (%) (Auto) , Lymphocytes (%) (Auto) , Monocytes (%) (Auto) , Eosinophils (%) (Auto) , Basophils (%) (Auto) , Differential Total Cells Counted 100, Neutrophils % (Manual) 87H, Lymphocytes % (Manual) 2L, Monocytes % (Manual) 1, Eosinophils % (Manual) 0, Basophils % (Manual) 0, Band Neutrophils 10H, Platelet Estimate DecreasedL, Platelet Morphology Normal, Red Blood Cell Morphology Normal, Sodium Level 133L, Potassium Level 3.2L, Chloride Level 100, Carbon Dioxide Level 23, Anion Gap 10, Blood Urea Nitrogen 19H, Creatinine 1.3, Estimat Glomerular Filtration Rate 41.0, Glucose Level 107H, Uric Acid 4.5, Calcium Level 6.6L, Phosphorus Level 1.6L, Magnesium Level 2.0, Total Bilirubin 0.7, Aspartate Amino Transf (AST/SGOT) 34, Alanine Aminotransferase (ALT/SGPT) 53, Alkaline Phosphatase 101, C-Reactive Protein, Quantitative 23.7H, Pro-B-Type Natriuretic Peptide 2757H, Total Protein 5.4L, Albumin 2.3L, Globulin 3.1, Albumin/Globulin Ratio 0.7L Height (Feet): 4 Height (Inches): 11.00 Weight (Pounds): 103 General Appearance: no apparent distress Abdomen: soft Objective No change Deepak Joseph MD Jul 13, 2020 12:29
--- NOTE | 2020-07-13 12:42 | General Progress Note ---
Progress Note Progress Note REHAB F/U PROGRESS NOTE: SUBJECTIVE: AT BED ABD PAIN NO N/V +BM SEEN BY PT>> Rolling * Stand By Assistance Supine to Sit * Minimal Assistance Bed Mobility Assistive Devices * Bed Rail Sit to Stand * Minimal Assistance Bed to Chair/Wheelchair * Minimal Assistance Transfer assistive devices * None Patient complains of pain * Yes Pain Comment (Include location & description) * GENERALIZED JOINT PAIN LOWER BACK PAIN Pain Intervention * Notified RN * Medicate prior to session Distance * 75 FT WITH C/O FATIGUE Assistance * Minimal Assistance Assistive Device * Front Wheel Walker Gait Deviations * Unsteady gait * Decreased foot clearance REVIEW OF SYSTEMS: EYES: Denies diplopia. ENT: Denies dysphagia. CARDIOVASCULAR: No chest pain. PULMONARY: No short of breath. GASTROINTESTINAL: abdominal pain. GENITOURINARY: No dysuria. MUSCULOSKELETAL: Multiple pain. Acute on chronic pain syndrome. NEUROLOGIC: Generalized weakness. PHYSICAL EXAMINATION: VITAL SIGNS: PER CHART, NOTED. HEENT: No facial droop. NECK: Supple HEART: Regular. LUNGS: Clear to auscultation bilateral. ABDOMEN: Soft. No distention. Positive bowel sounds. EXTREMITIES: Multiple deformities of hands especially and wrists. Area of bilateral knee surgery old heal noted. BACK: Tenderness of the thoracic and lumbar spine. NEUROLOGIC: Patient is alert and awake. She is oriented to place. Movement of bilateral upper and lower limbs somewhere between 3- to 3+/5. DATA: PER CHART, NOTED. ASSESSMENT: A 65-year-old female with 1. Thoracic and lumbar spine compression fracture/T10, T12, and L1 compression fracture. 2. Abdominal pain with elevated lipase level and abdominal ultrasound with possible report with acute cholecystitis. 3. Leukocytosis. 4. Transaminitis. 5. Urinary tract infection. 6. Chronic pain syndrome and narcotic dependency. 7. Acute on chronic pain syndrome. 8. Back pain. 9. Rheumatoid arthritis since age of 2 with multiple deformities and history of multiple surgeries including bilateral knees, wrists, and hip. 10. Debility and functional decline. 11. Gait abnormality. POSITIVE STOOL OB DEPRESSION UTI >> URINE CULTURE Final Organism 1 PROTEUS MIRABILIS COLONY COUNT: >100,000 CFU/ML PRO MIRABI M.I.C. RX --------- --- AMPICILLIN <=2 S CEFAZOLIN <=4 S CEFTAZIDIME <=1 S CEFTRIAXONE <=1 S CEFEPIME <=1 S GENTAMICIN <=1 S LEVOFLOXACIN <=0.12 S * MEROPENEM <=0.25 S NITROFURANTOIN 128 R TRIMETHOPRIM/SULFA <=20 S PIPERACILLIN/TAZOBACTAM <=4 S RECOMMENDATION: 24 hours nursing care. Physical therapy for range of motion, transfer training, endurance, balance and gait training, fall prevention with appropriate assistive device. Occupational therapy for activities of daily living, equipment function, transfer evaluation and training, upper extremity range of motion and strengthening exercise. 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 Fall precaution, pressure ulcer precaution, cardiac precaution. Continue medical management per Medicine. Incentive spirometry. Nutritional support. acute inpatient rehabilitation placement when patient is medically stable and clear pending insurance authorization. SOFT THORACOLUMBAR CORSET (TLSO) ABD PAIN >> PER PMD F/U CARE > ? GI CONSULT PSYCH F/U CARE ABX PER ID CALCITONIN NASAL SPRA QD ALT NOSTRILS CA-VIT D PO QD Jayme Randall MD Jul 13, 2020 12:42
[2020-07-13] MEDS: Calcium Carbonate 500mg w/Vit D 200iu tab ORAL SCH (13:06)
--- NOTE | 2020-07-13 14:51 | General Progress Note ---
Subjective Allergies: Coded Allergies: NAPROXEN (Verified Allergy, Unknown, 07/10/20) Objective Last 24 Hour Vital Signs Date Time Temp Pulse Resp B/P (MAP) Pulse Ox O2 Delivery O2 Flow Rate FiO2 07/13/20 12:00 97.9 77 20 144/87 (106) 94 07/13/20 09:00 Nasal Cannula 2.0 07/13/20 08:00 97.7 94 18 128/68 (88) 94 07/13/20 04:00 97.2 79 16 130/90 (103) 97 07/13/20 00:00 98.1 77 16 159/77 (104) 98 07/12/20 21:00 Nasal Cannula 2.0 07/12/20 20:00 97.9 83 18 143/92 (109) 97 07/12/20 18:48 98.3 07/12/20 16:00 98.3 79 16 125/65 (85) 97 Intake and Output 07/12/20 07/13/20 19:00 07:00 Intake Total 610 ml 1150 ml Output Total 9 ml Balance 610 ml 1141 ml IV Total 610 ml 750 ml Other 400 ml Output Urine Total 9 ml # Voids 3 # Bowel Movements 1 2 Laboratory Tests 07/12/20 16:31: Stool Occult Blood Positive 07/13/20 07:10: White Blood Count 13.2H, Red Blood Count 3.66L, Hemoglobin 11.4L, Hematocrit 32.2L, Mean Corpuscular Volume 88, Mean Corpuscular Hemoglobin 31.2H, Mean Corpuscular Hemoglobin Concent 35.5, Red Cell Distribution Width 12.3, Platelet Count 110L, Mean Platelet Volume 6.9, Neutrophils (%) (Auto) , Lymphocytes (%) (Auto) , Monocytes (%) (Auto) , Eosinophils (%) (Auto) , Basophils (%) (Auto) , Differential Total Cells Counted 100, Neutrophils % (Manual) 87H, Lymphocytes % (Manual) 2L, Monocytes % (Manual) 1, Eosinophils % (Manual) 0, Basophils % (Manual) 0, Band Neutrophils 10H, Platelet Estimate DecreasedL, Platelet Morphology Normal, Red Blood Cell Morphology Normal, Sodium Level 133L, Potassium Level 3.2L, Chloride Level 100, Carbon Dioxide Level 23, Anion Gap 10, Blood Urea Nitrogen 19H, Creatinine 1.3, Estimat Glomerular Filtration Rate 4 1.0, Glucose Level 107H, Uric Acid 4.5, Calcium Level 6.6L, Phosphorus Level 1.6L, Magnesium Level 2.0, Total Bilirubin 0.7, Aspartate Amino Transf (AST/SGOT) 34, Alanine Aminotransferase (ALT/SGPT) 53, Alkaline Phosphatase 101, C-Reactive Protein, Quantitative 23.7H, Pro-B-Type Natriuretic Peptide 2757H, Total Protein 5.4L, Albumin 2.3L, Globulin 3.1, Albumin/Globulin Ratio 0.7L Height (Feet): 4 Height (Inches): 11.00 Weight (Pounds): 103 Assessment/Plan Assessment/Plan: S: I am in pain O: seems in moderate pain , pain well managed PHYSICAL EXAMINATION:HEAD AND NECK: Atraumatic and normocephalic. CHEST: Clear to auscultation.HEART: S1 and S2. Regular rate and rhythm. ABDOMEN: Soft. No organomegaly.MUSCULOSKELETAL: Diffuse deformity in all of her joints. Positive for stooped postures and pain in the thoracic area. NEUROLOGIC: The patient is awake, alert, and oriented x3 with incidence of delirious, iatrogenic secondary to narcotic pain medication. IMAGING: Spine CT dated July 10, reviewed shows compression fractures of T10, T12, and L1. LABORATORY DATA: Labs dated July 13 ASSESSMENT AND PLAN: 1. Mechanical fall and multiple compression deformity fractures in multiple ages. 2. UTI- Gr negative 3. Pain management. 4. Rheumatoid arthritis and severe debilitating arthritic disease. 5. Hypertension. 6. Anxiety and depression. 7. GI and DVT prophylaxis. PLAN OF CARE: pain management ARU/SNIF placement PT.PT eval Consult GI start IV- iron supplement Jessica Ag MD Jul 13, 2020 14:51
[2020-07-13 16:00] VITALS: BP 125/75
[2020-07-13 20:00] VITALS: BP 134/78
[2020-07-13] MEDS: Miralax 17gm pkt ORAL SCH (20:51)
[2020-07-13] MEDS: Iron Sucrose 100 MG in NS 55 ML IVPB SCH (20:59)
[2020-07-14] VITALS: BP 132/77
[2020-07-14] MEDS: HYDROmorphone 1mg/ml Carpuject SUBQ PRN ×6 (02:52→23:40)
[2020-07-14 04:00] VITALS: BP 143/78
[2020-07-14 07:53] LABS: HEMATOCRIT 32.3 % (37.0-47.0); HEMOGLOBIN 11.5 G/DL (12.0-16.0); MEAN CORPUSCULAR VOLUME 87 FL (80-99); PLATELET COUNT 123 K/UL (150-450); RED BLOOD COUNT 3.69 M/UL (4.20-5.40); WHITE BLOOD COUNT 8.7 K/UL (4.8-10.8)
[2020-07-14 08:00] VITALS: BP 140/66
[2020-07-14] MEDS: Docusate 100mg cap ORAL SCH ×3 (08:08→17:23)
[2020-07-14] MEDS: Calcium Carbonate 500mg w/Vit D 200iu tab ORAL SCH (08:09)
[2020-07-14] MEDS: RINVOQ 15 MG ORAL SCH (08:09)
[2020-07-14 08:21] LABS: ALANINE AMINOTRANSFERASE 40 U/L (12-78); ALBUMIN 2.2 G/DL (3.4-5.0); ALBUMIN/GLOBULIN RATIO 0.7 (1.0-2.7); ALKALINE PHOSPHATASE 93 U/L (46-116); ANION GAP 7 mmol/L (5-15); ASPARTATE AMINO TRANSFERASE 20 U/L (15-37); BILIRUBIN,TOTAL 0.5 MG/DL (0.2-1.0); BLOOD UREA NITROGEN 8 mg/dL (7-18); CALCIUM 6.7 MG/DL (8.5-10.1); CARBON DIOXIDE 25 MMOL/L (21-32); CHLORIDE 104 MMOL/L (98-107); CREATININE 0.8 MG/DL (0.55-1.30); PHOSPHORUS 1.7 MG/DL (2.5-4.9); POTASSIUM 3.2 MMOL/L (3.5-5.1); SODIUM 136 MMOL/L (136-145)
[2020-07-14 12:00] VITALS: BP 150/94
[2020-07-14] MEDS: cefTRIAXone 2 GM in D5W 55 ML IVPB SCH (12:17)
[2020-07-14] MEDS: Potassium Phosphate 15mm/250ml 250 ML IVPB SCH ×2 (12:51→21:15)
--- NOTE | 2020-07-14 13:09 | Nephrology Progress Note ---
Assessment/Plan Problem List: (1) DIANNE (acute kidney injury) (2) Dehydration (3) Electrolyte imbalance (4) UTI (urinary tract infection) Assessment Renal failure, likely dehydration UTI Electrolyte abnormalities Elevated liver function tests History of rheumatoid arthritis Plan July 14: Labs reviewed. Serum calcium is low. Medication reviewed. Patient on nasal calcitonin. Will obtain vitamin D level. Continue oral vitamin the supplement. Potassium phosphorus IV supplement ordered. Continue to monitor electrolyte and chemistries. Per orders. July 13: Potassium phosphate IV ordered. IV fluid discontinued. Patient tolerating p.o. Serum creatinine baseline. Continue to monitor electrolytes. Continue per consultants. Previously: Stop meloxicam Stop lisinopril Protonix twice daily Monitor renal parameters Avoid nephrotoxic's Urine studies Slow hydration Per orders Subjective ROS Limited/Unobtainable: No Constitutional: Reports: malaise Objective Objective Last 24 Hour Vital Signs Date Time Temp Pulse Resp B/P (MAP) Pulse Ox O2 Delivery O2 Flow Rate FiO2 07/14/20 12:00 97.0 71 16 150/94 (112) 94 07/14/20 09:00 Room Air 07/14/20 08:00 98.1 82 17 140/66 (90) 94 07/14/20 04:00 97.2 72 18 143/78 (99) 96 07/14/20 00:00 98.3 70 18 132/77 (95) 94 07/13/20 21:00 Room Air 07/13/20 20:00 98.4 76 18 134/78 (96) 94 07/13/20 16:00 98.4 74 19 125/75 (92) 97 Intake and Output 07/13/20 07/14/20 19:00 07:00 Intake Total 720 ml 980 ml Output Total 600 ml Balance 720 ml 380 ml Intake Oral 720 ml 120 ml IV Total 60 ml Other 800 ml Output Urine Total 600 ml # Voids 7 13 Current Medications Medications (Trade) Dose Ordered Sig/Jessica Route PRN Reason Start Time Stop Time Status Last Admin Dose Admin Acetaminophen (Tylenol) 650 mg Q6H PRN ORAL Mild Pain (Pain Scale 1-3) 07/12/20 09:15 08/11/20 09:14 Acetaminophen (Tylenol) 650 mg Q6H PRN ORAL Temp >100.5 07/12/20 09:15 08/11/20 09:14 Calcitonin Goodman (Miacalcin) 1 sprays DAILY NASAL 07/13/20 14:00 10/11/20 13:59 07/14/20 08:08 Calcium/Vitamin D (OsCal D) 1 tab DAILY ORAL 07/13/20 12:45 10/11/20 12:44 07/14/20 08:09 Ceftriaxone Sodium 2 gm/ Dextrose 55 ml @ 110 mls/hr Q24H IVPB 07/13/20 13:00 07/20/20 12:59 07/14/20 12:17 Docusate Sodium (Colace) 100 mg TID ORAL 07/11/20 18:00 08/10/20 01:44 07/14/20 08:08 Ergocalciferol (Drisdol) 50,000 intlu QWEEK ORAL 07/14/20 13:15 08/14/20 08:59 UNV Escitalopram Oxalate (Lexapro) 10 mg DAILY ORAL 07/11/20 09:00 08/10/20 08:59 07/14/20 08:08 Fentanyl (Duragesic) 1 patch Q72H TDERMAL 07/12/20 11:00 07/19/20 10:59 07/12/20 11:26 Hydromorphone HCl (Dilaudid) 1 mg Q4H PRN SUBQ Severe Pain (Pain Scale 7-10) 07/12/20 13:30 07/19/20 13:29 07/14/20 11:02 Iron Sucrose 100 mg/Sodium Chloride 60 ml @ 240 mls/hr BEDTIME IVPB 07/13/20 21:00 07/17/20 21:14 07/13/20 20:59 Metoclopramide HCl (Reglan) 10 mg Q6H PRN IVP Nausea & Vomiting 07/11/20 01:45 08/10/20 01:44 07/13/20 14:56 Miscellaneous Medication (fentaNYL Destruction) 1 ea Q72H MISC 07/15/20 09:00 08/14/20 08:59 Mupirocin (Bactroban Oint) 1 applic THREE TIMES A DAY PRN TOPIC cat scratches and bites 07/11/20 01:45 07/16/20 01:44 Naloxone HCl (Narcan) 0.1 mg PRN IV Sedation scale 3 or 4 07/12/20 09:00 Pantoprazole (Protonix) 40 mg BID ORAL 07/11/20 13:15 08/10/20 01:44 07/14/20 08:08 Patient Own Medication (Patient's Own Med) 1 ea DAILY ORAL 07/14/20 09:00 08/13/20 08:59 07/14/20 08:09 Polyethylene Glycol (Miralax) 17 gm QHS ORAL 07/11/20 21:00 08/10/20 20:59 07/11/20 21:39 Potassium Phosphate 250 ml @ 62.5 mls/hr Q4H IVPB 07/14/20 13:00 07/14/20 20:59 07/14/20 12:51 Prednisone (predniSONE) 10 mg DAILY ORAL 07/11/20 09:00 08/10/20 08:59 07/14/20 08:09 Laboratory Tests 07/14/20 07:18: White Blood Count 8.7, Red Blood Count 3.69L, Hemoglobin 11.5L, Hematocrit 32.3L , Mean Corpuscular Volume 87, Mean Corpuscular Hemoglobin 31.0, Mean Corpuscular Hemoglobin Concent 35.5, Red Cell Distribution Width 12.0, Platelet Count 123L, Mean Platelet Volume 6.4L, Neutrophils (%) (Auto) , Lymphocytes (%) (Auto) , Monocytes (%) (Auto) , Eosinophils (%) (Auto) , Basophils (%) (Auto) , Differential Total Cells Counted 100, Neutrophils % (Manual) 85H, Lymphocytes % (Manual) 8L, Monocytes % (Manual) 5, Eosinophils % (Manual) 0, Basophils % (Manual) 0, Band Neutrophils 2, Platelet Estimate DecreasedL, Platelet Morphology Normal, Red Blood Cell Morphology Normal, Sodium Level 136, Potassium Level 3.2L, Chloride Level 104, Carbon Dioxide Level 25, Anion Gap 7, Blood Urea Nitrogen 8, Creatinine 0.8, Estimat Glomerular Filtration Rate > 60, Glucose Level 86, Calcium Level 6.7L, Phosphorus Level 1.7L, Magnesium Level 1.8, Total Bilirubin 0.5, Aspartate Amino Transf (AST/SGOT) 20, Alanine Aminotransferase (A LT/SGPT) 40, Alkaline Phosphatase 93, C-Reactive Protein, Quantitative 13.6H, Total Protein 5.4L, Albumin 2.2L, Globulin 3.2, Albumin/Globulin Ratio 0.7L Height (Feet): 4 Height (Inches): 11.00 Weight (Pounds): 103 General Appearance: no apparent distress Objective No change Deepak Joseph MD Jul 14, 2020 13:09
--- NOTE | 2020-07-14 13:25 | General Progress Note ---
Subjective Date patient seen: Jul 14, 2020 Time patient seen: 01:00 - pm Allergies: Coded Allergies: NAPROXEN (Verified Allergy, Unknown, 07/10/20) Subjective REVIEW OF SYSTEMS: Denies rash, fever, chills, sweating, dizziness, drowsiness, blurred vision, sore throat, or change in weight. No shortness of breath or chest pain. No nausea, vomiting, diarrhea, or blood in the stool or urine. No dysuria. HISTORY OF PRESENT ILLNESS: This is a 65-year-old female who is being seen on the Med/Surg floor of [facility]. Patient states she is doing better and pain has been better tolerated on the Fentanyl patch and Dilaudid. No new complaints at this time. Objective Last 24 Hour Vital Signs Date Time Temp Pulse Resp B/P (MAP) Pulse Ox O2 Delivery O2 Flow Rate FiO2 07/14/20 12:00 97.0 71 16 150/94 (112) 94 07/14/20 09:00 Room Air 07/14/20 08:00 98.1 82 17 140/66 (90) 94 07/14/20 04:00 97.2 72 18 143/78 (99) 96 07/14/20 00:00 98.3 70 18 132/77 (95) 94 07/13/20 21:00 Room Air 07/13/20 20:00 98.4 76 18 134/78 (96) 94 07/13/20 16:00 98.4 74 19 125/75 (92) 97 Intake and Output 07/13/20 07/14/20 19:00 07:00 Intake Total 720 ml 980 ml Output Total 600 ml Balance 720 ml 380 ml Intake Oral 720 ml 120 ml IV Total 60 ml Other 800 ml Output Urine Total 600 ml # Voids 7 13 Laboratory Tests 07/14/20 07:18: White Blood Count 8.7, Red Blood Count 3.69L, Hemoglobin 11.5L, Hematocrit 32.3L , Mean Corpuscular Volume 87, Mean Corpuscular Hemoglobin 31.0, Mean Corpuscular Hemoglobin Concent 35.5, Red Cell Distribution Width 12.0, Platelet Count 123L, Mean Platelet Volume 6.4L, Neutrophils (%) (Auto) , Lymphocytes (%) (Auto) , Monocytes (%) (Auto) , Eosinophils (%) (Auto) , Basophils (%) (Auto) , Differential Total Cells Counted 100, Neutrophils % (Manual) 85H, Lymphocytes % (Manual) 8L, Monocytes % (Manual) 5, Eosinophils % (Manual) 0, Basophils % (Manual) 0, Band Neutrophils 2, Platelet Estimate DecreasedL, Platelet Morphology Normal, Red Blood Cell Morphology Normal, Sodium Level 136, Potassium Level 3.2L, Chloride Level 104, Carbon Dioxide Level 25, Anion Gap 7, Blood Urea Nitrogen 8, Creatinine 0.8, Estimat Glomerular Filtration Rate > 60, Glucose Level 86, Calcium Level 6.7L, Phosphorus Level 1.7L, Magnesium Level 1.8, Total Bilirubin 0.5, Aspartate Amino Transf (AST/SGOT) 20, Alanine Aminotransferase (ALT/SGPT) 40, Alkaline Phosphatase 93, C-Reactive Protein, Quantitative 13.6H, Total Protein 5.4L, Albumin 2.2L, Globulin 3.2, Albumin/Globulin Ratio 0.7L Height (Feet): 4 Height (Inches): 11.00 Weight (Pounds): 103 Objective PHYSICAL EXAMINATION: GENERAL: Alert, awake, and oriented. LUNGS: Decreased breath sounds bilaterally. HEART: S1 and S2 regular. ABDOMEN: Tenderness to palpation. EXTREMITIES: No cyanosis. No clubbing. No edema. NEURO: No changes. Assessment/Plan Assessment/Plan: (1) Lumbar DDD/Spondylosis (2) Thoracic compression fractures (3) Rheumatoid arthritis (4) Multiple joint pain We will continue Dilaudid and start Fentanyl patch 25mcg Q72H D/w Dr. Hung and concurred. David Morris Jul 14, 2020 13:25
--- NOTE | 2020-07-14 13:36 | General Progress Note ---
Progress Note Progress Note REHAB F/U PROGRESS NOTE: SUBJECTIVE: STARTED ON IV IRON AND FENTANYL PATCH GI CONSULT PENDING AT BED +/- ABD PAIN +/- NAUSEA NO VOMITING PER PT>>Rolling * Stand By Assistance * Supervision Supine to Sit * Stand By Assistance * Contact Guard Assistance Bed Mobility Assistive Devices * Bed Rail Bed Mobility Comments * Patient was instructed on log rolling techniques but is non-compliant. Sit to Stand * Minimal Assistance * Contact Guard Assistance Bed to Chair/Wheelchair * Minimal Assistance * Contact Guard Assistance Transfer assistive devices * None Therapeutic Activities Comment * Verbal cues needed for proper hand positioning to improve her safety. Patient complains of pain * Yes Pain Comment (Include location & description) * GENERALIZED JOINT PAIN LOWER BACK PAIN Weight Bearing Assessment Label * Bilateral lower extremity * Weight Bearing Status Full weight bearing Distance * 100 ft Assistance * Contact Guard Assistance Assistive Device * Front Wheel Walker Gait Deviations * Unsteady gait * Decreased stride length * Decreased foot clearance Gait Training Comment * Patient was instructed to decrease her thien and to increase her stride length to improve her gait stability. REVIEW OF SYSTEMS: EYES: Denies diplopia. ENT: Denies dysphagia. CARDIOVASCULAR: No chest pain. PULMONARY: No short of breath. GASTROINTESTINAL: abdominal pain. GENITOURINARY: No dysuria. MUSCULOSKELETAL: Multiple pain. Acute on chronic pain syndrome. NEUROLOGIC: Generalized weakness. PHYSICAL EXAMINATION: VITAL SIGNS: PER CHART, NOTED. HEENT: No facial droop. NECK: Supple HEART: Regular. LUNGS: Clear to auscultation bilateral. ABDOMEN: Soft. No distention. Positive bowel sounds. EXTREMITIES: Multiple deformities of hands especially and wrists. Area of bilateral knee surgery old heal noted. BACK: Tenderness of the thoracic and lumbar spine. NEUROLOGIC: Patient is alert and awake. She is oriented to place. Movement of bilateral upper and lower limbs somewhere between 3- to 3+/5. DATA: PER CHART, NOTED. ASSESSMENT: A 65-year-old female with 1. Thoracic and lumbar spine compression fracture/T10, T12, and L1 compression fracture. 2. Abdominal pain with elevated lipase level and abdominal ultrasound with possible report with acute cholecystitis. 3. Leukocytosis. 4. Transaminitis. 5. Urinary tract infection. 6. Chronic pain syndrome and narcotic dependency. 7. Acute on chronic pain syndrome. 8. Back pain. 9. Rheumatoid arthritis since age of 2 with multiple deformities and history of multiple surgeries including bilateral knees, wrists, and hip. 10. Debility and functional decline. 11. Gait abnormality. POSITIVE STOOL OB DEPRESSION UTI >> URINE CULTURE Final Organism 1 PROTEUS MIRABILIS COLONY COUNT: >100,000 CFU/ML PRO MIRABI M.I.C. RX --------- --- AMPICILLIN <=2 S CEFAZOLIN <=4 S CEFTAZIDIME <=1 S CEFTRIAXONE <=1 S CEFEPIME <=1 S GENTAMICIN <=1 S LEVOFLOXACIN <=0.12 S * MEROPENEM <=0.25 S NITROFURANTOIN 128 R TRIMETHOPRIM/SULFA <=20 S PIPERACILLIN/TAZOBACTAM <=4 S RECOMMENDATION: 24 hours nursing care. Physical therapy for range of motion, transfer training, endurance, balance and gait training, fall prevention with appropriate assistive device. Occupational therapy for activities of daily living, equipment function, transfer evaluation and training, upper extremity range of motion and strengthening exercise. 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 Fall precaution, pressure ulcer precaution, cardiac precaution. Continue medical management per Medicine. Incentive spirometry. Nutritional support. acute inpatient rehabilitation placement when patient is medically stable and clear pending insurance authorization. SOFT THORACOLUMBAR CORSET (TLSO) ABD PAIN >> D/W PMD F/U CARE > GI CONSULT >> PENDING PSYCH F/U CARE ABX PER ID CALCITONIN NASAL SPRAY QD ALT NOSTRILS CA-VIT D PO QD IRON IV FENTANYL PATCH PO VIT D QW VIT D LEVEL PENDING Jayme Randall MD Jul 14, 2020 13:36
[2020-07-14] MEDS: Metoclopramide 10mg/2ml Inj IVP PRN (14:36)
[2020-07-14] MEDS ORDERED: Vitamin D 50,000 units cap ORAL SCH (15:00)
[2020-07-14 16:00] VITALS: BP 147/93
[2020-07-14 20:00] VITALS: BP 133/84
[2020-07-14] MEDS: Miralax 17gm pkt ORAL SCH (20:49)
[2020-07-14] MEDS: Iron Sucrose 100 MG in NS 55 ML IVPB SCH (20:50)
[2020-07-15] VITALS: BP 156/93
[2020-07-15] MEDS: HYDROmorphone 1mg/ml Carpuject SUBQ PRN ×5 (03:49→20:22)
[2020-07-15 04:00] VITALS: BP 159/84
[2020-07-15 06:51] LABS: ALANINE AMINOTRANSFERASE 29 U/L (12-78); ALBUMIN 2.4 G/DL (3.4-5.0); ALBUMIN/GLOBULIN RATIO 0.8 (1.0-2.7); ALKALINE PHOSPHATASE 88 U/L (46-116); ANION GAP 10 mmol/L (5-15); ASPARTATE AMINO TRANSFERASE 16 U/L (15-37); BILIRUBIN,TOTAL 0.5 MG/DL (0.2-1.0); BLOOD UREA NITROGEN 8 mg/dL (7-18); CALCIUM 7.7 MG/DL (8.5-10.1); CARBON DIOXIDE 24 MMOL/L (21-32); CHLORIDE 103 MMOL/L (98-107); CREATININE 0.7 MG/DL (0.55-1.30); PHOSPHORUS 2.7 MG/DL (2.5-4.9); POTASSIUM 3.5 MMOL/L (3.5-5.1); SODIUM 137 MMOL/L (136-145)
[2020-07-15 08:00] VITALS: BP 135/85
[2020-07-15] MEDS: RINVOQ 15 MG ORAL SCH (08:03)
[2020-07-15] MEDS: Calcium Carbonate 500mg w/Vit D 200iu tab ORAL SCH (08:03)
[2020-07-15] MEDS: Docusate 100mg cap ORAL SCH ×3 (08:04→17:46)
[2020-07-15] MEDS: Metoclopramide 10mg/2ml Inj IVP PRN (08:06)
--- NOTE | 2020-07-15 08:48 | General Progress Note ---
Subjective Date patient seen: Jul 15, 2020 Time patient seen: 07:00 - am Allergies: Coded Allergies: NAPROXEN (Verified Allergy, Unknown, 07/10/20) Subjective REVIEW OF SYSTEMS: Denies rash, fever, chills, sweating, dizziness, drowsiness, blurred vision, sore throat, or change in weight. No shortness of breath or chest pain. No nausea, vomiting, diarrhea, or blood in the stool or urine. No dysuria. HISTORY OF PRESENT ILLNESS: This is a 65-year-old female who is being seen on the Med/Surg floor of [facility]. Patient in bed no signs of pain or distress. Pain has been unchanged. Objective Last 24 Hour Vital Signs Date Time Temp Pulse Resp B/P (MAP) Pulse Ox O2 Delivery O2 Flow Rate FiO2 07/15/20 08:00 98.1 93 20 135/85 (102) 97 07/15/20 04:00 96.7 69 18 159/84 (109) 97 07/15/20 00:00 97.2 69 18 156/93 (114) 97 07/14/20 21:00 Nasal Cannula 2.0 07/14/20 20:07 97 Nasal Cannula 2.0 28 07/14/20 20:00 97.3 70 18 133/84 (100) 98 07/14/20 16:00 98.2 70 18 147/93 (111) 95 07/14/20 12:00 97.0 71 16 150/94 (112) 94 07/14/20 09:00 Room Air Intake and Output 07/14/20 07/15/20 19:00 07:00 Intake Total 1390.0 ml Output Total 200 ml Balance 1190.0 ml Intake Oral 480 ml IV Total 310.0 ml Other 600 ml Output Urine Total 200 ml # Voids 9 # Bowel Movements 2 Laboratory Tests 07/15/20 05:50: Sodium Level 137, Potassium Level 3.5, Chloride Level 103, Carbon Dioxide Level 24, Anion Gap 10, Blood Urea Nitrogen 8, Creatinine 0.7, Estimat Glomerular Filtration Rate > 60, Glucose Level 87, Calcium Level 7.7L, Phosphorus Level 2.7, Magnesium Level 1.6L, Total Bilirubin 0.5, Aspartate Amino Transf (AST/SGOT) 16, Alanine Aminotransferase (ALT/SGPT) 29, Alkaline Phosphatase 88, Total Protein 5.3L, Albumin 2.4L, Globulin 2.9, Albumin/Globulin Ratio 0.8L, Vitamin D 25-Hydroxy [Pending], 25-Hydroxy Vitamin D2 [Pending], 25-Hydroxy Vitamin D3 [Pending], Thyroid Stimulating Hormone (TSH) 3.254 Height (Feet): 4 Height (Inches): 11.00 Weight (Pounds): 103 Objective PHYSICAL EXAMINATION: GENERAL: Alert, awake, and oriented. LUNGS: Decreased breath sounds bilaterally. HEART: S1 and S2 regular. ABDOMEN: Tenderness to palpation. EXTREMITIES: No cyanosis. No clubbing. No edema. NEURO: No changes. Assessment/Plan Assessment/Plan: (1) Lumbar DDD/Spondylosis (2) Thoracic compression fractures (3) Rheumatoid arthritis (4) Multiple joint pain We will continue Dilaudid and Fentanyl patch and add 12mcg Q72hrs. D/w Dr. Hung and concurred. David Morris Jul 15, 2020 08:48
[2020-07-15] MEDS ORDERED: Vitamin D 50,000 units cap ORAL SCH (09:00)
[2020-07-15] MEDS ORDERED: fentaNYL Destruction MISC SCH (09:00)
--- NOTE | 2020-07-15 10:14 | Nephrology Progress Note ---
Assessment/Plan Problem List: (1) DIANNE (acute kidney injury) (2) Dehydration (3) Electrolyte imbalance (4) UTI (urinary tract infection) Assessment Renal failure, likely dehydration UTI Electrolyte abnormalities Elevated liver function tests History of rheumatoid arthritis Plan July 15: Labs reviewed. Serum calcium higher. Low magnesium replaced. Continue per consultants. Vitamin D level results pending. July 14: Labs reviewed. Serum calcium is low. Medication reviewed. Patient on nasal calcitonin. Will obtain vitamin D level. Continue oral vitamin the supplement. Potassium phosphorus IV supplement ordered. Continue to monitor electrolyte and chemistries. Per orders. July 13: Potassium phosphate IV ordered. IV fluid discontinued. Patient tolerating p.o. Serum creatinine baseline. Continue to monitor electrolytes. Continue per consultants. Previously: Stop meloxicam Stop lisinopril Protonix twice daily Monitor renal parameters Avoid nephrotoxic's Urine studies Slow hydration Per orders Subjective ROS Limited/Unobtainable: No Constitutional: Reports: malaise Objective Objective Last 24 Hour Vital Signs Date Time Temp Pulse Resp B/P (MAP) Pulse Ox O2 Delivery O2 Flow Rate FiO2 07/15/20 09:00 Nasal Cannula 2.0 07/15/20 08:00 98.1 93 20 135/85 (102) 97 07/15/20 04:00 96.7 69 18 159/84 (109) 97 07/15/20 00:00 97.2 69 18 156/93 (114) 97 07/14/20 21:00 Nasal Cannula 2.0 07/14/20 20:07 97 Nasal Cannula 2.0 28 07/14/20 20:00 97.3 70 18 133/84 (100) 98 07/14/20 16:00 98.2 70 18 147/93 (111) 95 07/14/20 12:00 97.0 71 16 150/94 (112) 94 Intake and Output 07/14/20 07/15/20 19:00 07:00 Intake Total 1390.0 ml Output Total 200 ml Balance 1190.0 ml Intake Oral 480 ml IV Total 310.0 ml Other 600 ml Output Urine Total 200 ml # Voids 9 # Bowel Movements 2 Laboratory Tests 07/15/20 05:50: Sodium Level 137, Potassium Level 3.5, Chloride Level 103, Carbon Dioxide Level 24, Anion Gap 10, Blood Urea Nitrogen 8, Creatinine 0.7, Estimat Glomerular Filtration Rate > 60, Glucose Level 87, Calcium Level 7.7L, Phosphorus Level 2.7, Magnesium Level 1.6L, Total Bilirubin 0.5, Aspartate Amino Transf (AST/SGOT) 16, Alanine Aminotransferase (ALT/SGPT) 29, Alkaline Phosphatase 88, Total Protein 5.3L, Albumin 2.4L, Globulin 2.9, Albumin/Globulin Ratio 0.8L, Vitamin D 25-Hydroxy [Pending], 25-Hydroxy Vitamin D2 [Pending], 25-Hydroxy Vitamin D3 [Pending], Thyroid Stimulating Hormone (TSH) 3.254 Height (Feet): 4 Height (Inches): 11.00 Weight (Pounds): 103 General Appearance: no apparent distress Objective No change Deepak Joseph MD Jul 15, 2020 10:14
[2020-07-15 12:00] VITALS: BP 132/87
[2020-07-15] MEDS: cefTRIAXone 2 GM in D5W 55 ML IVPB SCH (13:34)
[2020-07-15 16:00] VITALS: BP 135/83
--- NOTE | 2020-07-15 17:41 | Infectious Diseases Prog Note ---
Assessment/Plan Assessment: Sepsis UTI- ?pyelo ( had n/v )( dysuria improving) -u/a wbc 15-20, nit neg, leuk +2; ucx >100k p mirabilis ( R macrobid ; otherwise S) Afebrile Leukocytosis (on low dose prednisone but this is home med and no leukocytosis upon admission); SP -CXR: no acute disease DIANNE, SP Nause/vomiting- r/o acute cholecystitis Elevated LFTs, improving -Abd US: Negative for gallstones. However, there is mild gallbladder wall thickening. Possibility of acalculous acute cholecystitis should be considered Peripancreatic cysts versus possible varices. Splenic hilar vascular structure, could represent a hilar varix or splenic artery aneurysm. Consider contrast CT for further evaluation. Bilateral nonobstructive intrarenal calculi. Unusual fluid within the endocervical canal or vagina, favor the latter Back pain, sp fall- Compression fx T10, T12, L1 -CT L spine: Compression fractures of T10, T12, and L1. Given diffuse osteopenia is difficult to date the fractures, however, given subtle sclerotic appearance, suggest chronic fractures. Recommend correlation with exam for location of pain and point tenderness.Cortes catheter likely within the vaginal canal. Recommend repositioning. Additional chronic findings as above. COVID19 neg x 1 advanced RA HTN Anxiety disorder/MDD osteoporosis Plan: -restart IV Rocephin # 3 (abx d #6/7) -07/13 Sp Meropenem # 2 -07/12 Sp Ceftriaxone #3 -f/u cx -Monitor CBC/CMP, temperatures -f/u HIV ab screen, Acute hep panel Thank you for this consultation. Will continue to follow along with you. Discussed with RN. Subjective Allergies: Coded Allergies: NAPROXEN (Verified Allergy, Unknown, 07/10/20) afebrile at 2l NC leukocytosis resolved Bcx NTD Objective Last 24 Hour Vital Signs Date Time Temp Pulse Resp B/P (MAP) Pulse Ox O2 Delivery O2 Flow Rate FiO2 07/15/20 16:00 98.2 74 20 135/83 (100) 98 07/15/20 12:00 97.7 79 20 132/87 (102) 98 07/15/20 09:00 Nasal Cannula 2.0 07/15/20 08:00 98.1 93 20 135/85 (102) 97 07/15/20 04:00 96.7 69 18 159/84 (109) 97 07/15/20 00:00 97.2 69 18 156/93 (114) 97 07/14/20 21:00 Nasal Cannula 2.0 07/14/20 20:07 97 Nasal Cannula 2.0 28 07/14/20 20:00 97.3 70 18 133/84 (100) 98 Height (Feet): 4 Height (Inches): 11.00 Weight (Pounds): 103 HEAD AND NECK: Atraumatic and normocephalic. CHEST: Clear to auscultation. HEART: S1 and S2. Regular rate and rhythm. ABDOMEN: Soft. No organomegaly. Laboratory Tests Test 07/15/20 05:50 Sodium Level 137 MMOL/L (136-145) Potassium Level 3.5 MMOL/L (3.5-5.1) Chloride Level 103 MMOL/L (98-107) Carbon Dioxide Level 24 MMOL/L (21-32) Anion Gap 10 mmol/L (5-15) Blood Urea Nitrogen 8 mg/dL (7-18) Creatinine 0.7 MG/DL (0.55-1.30) Estimat Glomerular Filtration Rate > 60 mL/min (>60) Glucose Level 87 MG/DL (74-106) Calcium Level 7.7 MG/DL (8.5-10.1) L Phosphorus Level 2.7 MG/DL (2.5-4.9) Magnesium Level 1.6 MG/DL (1.8-2.4) L Total Bilirubin 0.5 MG/DL (0.2-1.0) Aspartate Amino Transf (AST/SGOT) 16 U/L (15-37) Alanine Aminotransferase (ALT/SGPT) 29 U/L (12-78) Alkaline Phosphatase 88 U/L (46-116) Total Protein 5.3 G/DL (6.4-8.2) L Albumin 2.4 G/DL (3.4-5.0) L Globulin 2.9 g/dL Albumin/Globulin Ratio 0.8 (1.0-2.7) L Vitamin D 25-Hydroxy Pending 25-Hydroxy Vitamin D2 Pending 25-Hydroxy Vitamin D3 Pending Thyroid Stimulating Hormone (TSH) 3.254 uiU/mL (0.358-3.740) Current Medications Medications (Trade) Dose Ordered Sig/Jessica Route PRN Reason Start Time Stop Time Status Last Admin Dose Admin Acetaminophen (Tylenol) 650 mg Q6H PRN ORAL Mild Pain (Pain Scale 1-3) 07/12/20 09:15 08/11/20 09:14 Acetaminophen (Tylenol) 650 mg Q6H PRN ORAL Temp >100.5 07/12/20 09:15 08/11/20 09:14 Calcitonin [place] (Miacalcin) 1 sprays DAILY NASAL 07/13/20 14:00 10/11/20 13:59 07/15/20 08:04 Calcium/Vitamin D (OsCal D) 1 tab DAILY ORAL 07/13/20 12:45 10/11/20 12:44 07/15/20 08:03 Ceftriaxone Sodium 2 gm/ Dextrose 55 ml @ 110 mls/hr Q24H IVPB 07/13/20 13:00 07/20/20 12:59 07/15/20 13:34 Docusate Sodium (Colace) 100 mg TID ORAL 07/11/20 18:00 08/10/20 01:44 07/15/20 12:18 Ergocalciferol (Drisdol) 50,000 intlu QWEEK ORAL 07/14/20 15:00 08/14/20 14:59 07/14/20 14:25 Escitalopram Oxalate (Lexapro) 10 mg DAILY ORAL 07/11/20 09:00 08/10/20 08:59 07/15/20 08:03 Fentanyl (Duragesic) 1 patch Q72H TDERMAL 07/12/20 11:00 07/19/20 10:59 07/15/20 10:56 Fentanyl (Duragesic) 1 patch Q72H TDERMAL 07/15/20 10:00 07/22/20 09:59 07/15/20 09:58 Hydromorphone HCl (Dilaudid) 1 mg Q4H PRN SUBQ Severe Pain (Pain Scale 7-10) 07/12/20 13:30 07/19/20 13:29 07/15/20 16:25 Iron Sucrose 100 mg/Sodium Chloride 60 ml @ 240 mls/hr BEDTIME IVPB 07/13/20 21:00 07/17/20 21:14 07/14/20 20:50 Metoclopramide HCl (Reglan) 10 mg Q6H PRN IVP Nausea & Vomiting 07/11/20 01:45 08/10/20 01:44 07/15/20 08:06 Miscellaneous Medication (fentaNYL Destruction) 1 ea Q72H MISC 07/15/20 09:00 08/14/20 08:59 07/15/20 09:01 Mupirocin (Bactroban Oint) 1 applic THREE TIMES A DAY PRN TOPIC cat scratches and bites 07/11/20 01:45 07/16/20 01:44 Naloxone HCl (Narcan) 0.1 mg PRN IV Sedation scale 3 or 4 07/12/20 09:00 Pantoprazole (Protonix) 40 mg BID ORAL 07/11/20 13:15 08/10/20 01:44 07/15/20 08:03 Patient Own Medication (Patient's Own Med) 1 ea DAILY ORAL 07/14/20 09:00 08/13/20 08:59 07/15/20 08:03 Polyethylene Glycol (Miralax) 17 gm QHS ORAL 07/11/20 21:00 08/10/20 20:59 07/14/20 20:49 Prednisone (predniSONE) 10 mg DAILY ORAL 07/11/20 09:00 08/10/20 08:59 07/15/20 08:04 Pushpa Tejeda M.D. Jul 15, 2020 17:41
--- NOTE | 2020-07-15 17:58 | CDS Physician Query ---
Clarification is required for compliance, coding accuracy, and to reflect severity of illness for this patient. Dear Dr. Jessica Ag M.D. Date: 07/15/2020 CDI/CDS: Leo Glez Clinical Documentation Statement: "65-year-old female that came to the ER with diffuse back pain. The patient reportedly had fallen and has been suffering from the severe osteoarthritis. The patient is complaining of lower back pain." [H&P Jessica Ag M.D. 07/11/2020] ASSESSMENT: Mechanical fall and multiple compression deformity fractures in multiple ages, UTI, Rheumatoid arthritis and severe debilitating arthritic disease. Anxiety and depression, GI and DVT prophylaxis. ASSESSMENT: Sepsis UTI- ?pyelo, Afebrile, Leukocytosis, Back pain, advanced RA [ Inf. PN Pushpa Torres M.D.Jul 12, 2020 12:09] Clinical Finding Show: Vital sighs (07/11): T99.9F, Pulse 119, RR 20, BP 173/95 Lab (07/10): Hemat; WBC 3.6, Neut 82 (07/11): Hemat; WBC 15.9 Neut 82 Chem (07/10): Glucose 146 Urines(07/10); Ur.bacteria "Moderate", Ur/ Leuk Yris 2+ Treatment: Ceftriaxone Sod IV, Mupirocin 1 ap, A possible diagnosis of "SEPSIS" was made in the medical record on Infectious PN by Pushpa Strong M.D. and Jama Porter MD 07/12 and 07/13. Upon review, it is difficult to determine whether this diagnosis has been ruled in, ruled out,or is still being worked up. Please indicate below the status of the aforementioned diagnosis. [x] Treated and resolve [] Presumed and treated [] Currently under treatment [] Still being worked-up [] Ruled out Present on Admission: [x] Yes [] No [] Clinically Undetermined Jessica Ag Physician signature Date Please also document in your Progress Notes and/or Discharge Summary and indicate if the condition was present on admission. MTDD
--- NOTE | 2020-07-15 19:50 | General Progress Note ---
Progress Note Progress Note REHAB F/U PROGRESS NOTE: SUBJECTIVE: ON IV IRON AND FENTANYL PATCH ID FOLLOWING AT BED +/- ABD PAIN + PROGRESS WITH PT PER PT>> Sit to Stand * Stand By Assistance * Contact Guard Assistance Bed to Chair/Wheelchair * Stand By Assistance * Contact Guard Assistance Transfer assistive devices * Front wheel walker Precautions * Fall Precautions Weight Bearing Assessment Label * Bilateral lower extremity * Weight Bearing Status Full weight bearing Distance * 150 ft Assistance * Contact Guard Assistance Assistive Device * Front Wheel Walker Gait Deviations * Unsteady gait REVIEW OF SYSTEMS: EYES: Denies diplopia. ENT: Denies dysphagia. CARDIOVASCULAR: No chest pain. PULMONARY: No short of breath. GASTROINTESTINAL: abdominal pain. GENITOURINARY: No dysuria. MUSCULOSKELETAL: Multiple pain. Acute on chronic pain syndrome. NEUROLOGIC: Generalized weakness. PHYSICAL EXAMINATION: VITAL SIGNS: PER CHART, NOTED. HEENT: No facial droop. NECK: Supple HEART: Regular. LUNGS: Clear to auscultation bilateral. ABDOMEN: Soft. No distention. Positive bowel sounds. EXTREMITIES: Multiple deformities of hands especially and wrists. Area of bilateral knee surgery old heal noted. BACK: Tenderness of the thoracic and lumbar spine. NEUROLOGIC: Patient is alert and awake. She is oriented to place. Movement of bilateral upper and lower limbs somewhere between 3- to 3+/5. DATA: PER CHART, NOTED. ASSESSMENT: A 65-year-old female with 1. Thoracic and lumbar spine compression fracture/T10, T12, and L1 compression fracture. 2. Abdominal pain with elevated lipase level and abdominal ultrasound with possible report with acute cholecystitis. 3. Leukocytosis. 4. Transaminitis. 5. Urinary tract infection. 6. Chronic pain syndrome and narcotic dependency. 7. Acute on chronic pain syndrome. 8. Back pain. 9. Rheumatoid arthritis since age of 2 with multiple deformities and history of multiple surgeries including bilateral knees, wrists, and hip. 10. Debility and functional decline. 11. Gait abnormality. POSITIVE STOOL OB DEPRESSION UTI >> URINE CULTURE Final Organism 1 PROTEUS MIRABILIS COLONY COUNT: >100,000 CFU/ML PRO MIRABI M.I.C. RX --------- --- AMPICILLIN <=2 S CEFAZOLIN <=4 S CEFTAZIDIME <=1 S CEFTRIAXONE <=1 S CEFEPIME <=1 S GENTAMICIN <=1 S LEVOFLOXACIN <=0.12 S * MEROPENEM <=0.25 S NITROFURANTOIN 128 R TRIMETHOPRIM/SULFA <=20 S PIPERACILLIN/TAZOBACTAM <=4 S RECOMMENDATION: 24 hours nursing care. Physical therapy for range of motion, transfer training, endurance, balance and gait training, fall prevention with appropriate assistive device. Occupational therapy for activities of daily living, equipment function, transfer evaluation and training, upper extremity range of motion and strengthening exercise. 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 Fall precaution, pressure ulcer precaution, cardiac precaution. Continue medical management per Medicine. Incentive spirometry. Nutritional support. acute inpatient rehabilitation placement when patient is medically stable and clear pending insurance authorization. SOFT THORACOLUMBAR CORSET (TLSO) ABD PAIN >> PER PMD PSYCH F/U CARE ABX PER ID CALCITONIN NASAL SPRAY QD, ALT NOSTRILS CA-VIT D PO QD IRON IV FENTANYL PATCH PO VIT D QW VIT D LEVEL PENDING D/W PMD. MOST LIKELY NEEDS TO BE OFF FENTANYL PATCH FOR ARU PLACEMENT >> DR. SAINI TO ADJUST MEDS. Jayme Randall MD Jul 15, 2020 19:50
[2020-07-15 20:00] VITALS: BP 135/86
[2020-07-15] MEDS: Iron Sucrose 100 MG in NS 55 ML IVPB SCH (20:21)
[2020-07-15] MEDS: Miralax 17gm pkt ORAL SCH (20:22)
--- NOTE | 2020-07-15 21:14 | General Progress Note ---
Subjective Allergies: Coded Allergies: NAPROXEN (Verified Allergy, Unknown, 07/10/20) Objective Last 24 Hour Vital Signs Date Time Temp Pulse Resp B/P (MAP) Pulse Ox O2 Delivery O2 Flow Rate FiO2 07/15/20 16:00 98.2 74 20 135/83 (100) 98 07/15/20 12:00 97.7 79 20 132/87 (102) 98 07/15/20 09:00 Nasal Cannula 2.0 07/15/20 08:00 98.1 93 20 135/85 (102) 97 07/15/20 04:00 96.7 69 18 159/84 (109) 97 07/15/20 00:00 97.2 69 18 156/93 (114) 97 Intake and Output 07/14/20 07/15/20 19:00 07:00 Intake Total 1390.0 ml Output Total 200 ml Balance 1190.0 ml Intake Oral 480 ml IV Total 310.0 ml Other 600 ml Output Urine Total 200 ml # Voids 9 # Bowel Movements 2 Laboratory Tests 07/15/20 05:50: Sodium Level 137, Potassium Level 3.5, Chloride Level 103, Carbon Dioxide Level 24, Anion Gap 10, Blood Urea Nitrogen 8, Creatinine 0.7, Estimat Glomerular Filtration Rate > 60, Glucose Level 87, Calcium Level 7.7L, Phosphorus Level 2.7, Magnesium Level 1.6L, Total Bilirubin 0.5, Aspartate Amino Transf (AST/SGOT) 16, Alanine Aminotransferase (ALT/SGPT) 29, Alkaline Phosphatase 88, Total Protein 5.3L, Albumin 2.4L, Globulin 2.9, Albumin/Globulin Ratio 0.8L, Vitamin D 25-Hydroxy [Pending], 25-Hydroxy Vitamin D2 [Pending], 25-Hydroxy Vitamin D3 [Pending], Thyroid Stimulating Hormone (TSH) 3.254 Height (Feet): 4 Height (Inches): 11.00 Weight (Pounds): 103 Assessment/Plan Assessment/Plan: S: I am in pain O: seems in moderate pain , pain well managed PHYSICAL EXAMINATION:HEAD AND NECK: Atraumatic and normocephalic. CHEST: Clear to auscultation.HEART: S1 and S2. Regular rate and rhythm. ABDOMEN: Soft. No organomegaly.MUSCULOSKELETAL: Diffuse deformity in all of her joints. Positive for stooped postures and pain in the thoracic area. NEUROLOGIC: The patient is awake, alert, and oriented x3 with incidence of delirious, iatrogenic secondary to narcotic pain medication. IMAGING: Spine CT dated July 10, reviewed shows compression fractures of T10, T12, and L1. LABORATORY DATA: Labs dated July 13 ASSESSMENT AND PLAN: 1. Mechanical fall and multiple compression deformity fractures in multiple ages. 2. UTI- Gr negative 3. Pain management. 4. Rheumatoid arthritis and severe debilitating arthritic disease. 5. Hypertension. 6. Anxiety and depression. 7. GI and DVT prophylaxis. PLAN OF CARE: pain management ARU/SNIF placement PT.PT eval Consult GI start IV- iron supplement Jessica Ag MD Jul 15, 2020 21:14
--- NOTE | 2020-07-15 22:17 | Consultation ---
History of Present Illness General Date patient seen: Jul 15, 2020 Reason for Hospitalization: Nausea, Vomiting, and Diarrhea Present Illness HPI 65F currently admitted to [facility] [place]. noted to have open oozing ulcer on lower extremity. surgery called to evaluate. patient seen, chart reviewed, patient examined. Allergies: Coded Allergies: NAPROXEN (Verified Allergy, Unknown, 07/10/20) COVID-19 Screening Contact w/high risk pt: No Experienced COVID-19 symptoms?: No Medication History Scheduled Ascorbic Acid/Multivit-Min (Emergen-C 1,000 mg Packet), 1,000 MG PO DAILY, (Reported) Celecoxib* (Celebrex*), 200 MG ORAL BID, (Reported) Cholecalciferol (Vitamin D3) (Weekly-D), 50,000 UNITS PO QWEEK, (Reported) Denosumab (Prolia), 60 MG SUBQ EVERY 6 MONTHS, (Reported) Escitalopram Oxalate* (Lexapro*), 10 MG ORAL DAILY, (Reported) Fentanyl 12MCG Patch* (Fentanyl 12MCG Patch*), 1 PATCH TDERMAL EVERY 72 HOURS, (Reported) Lisinopril* (Lisinopril*), 10 MG ORAL DAILY, (Reported) Polyethylene Glycol 3350* (Miralax*), 17 GM ORAL HS, (Reported) Prednisone* (Prednisone*), 10 MG ORAL DAILY, (Reported) Upadacitinib (Rinvoq ER), 15 MG PO DAILY, (Reported) [Calcium W/ Vitamin D], 360-536 MG PO DAILY, (Reported) [Triameterene], 25 MG PO EVERY OTHER DAY, (Reported) [realistor], 150 MG PO DAILY, (Reported) Scheduled PRN Carisoprodol* (Carisoprodol*), 0.5 TAB ORAL Q6H PRN for back pain, (Reported) Docusate Sodium* (Colace*), 100 MG ORAL DAILY PRN for Constipation, (Reported) Lactase (Lactaid), 3,000 UNIT PO DAILY PRN for supplement, (Reported) Morphine 10mg/5ml Oral Soln* (Morphine 10mg/5ml Oral Soln*), 30 MG ORAL Q4HR PRN for For Pain, (Reported) Mupirocin* (Mupirocin*), 1 APPLIC TOPIC THREE TIMES A DAY PRN for cat scratches and bites, (Reported) Ondansetron* (Zofran*), 4 MG ORAL Q6H PRN for Nausea & Vomiting, (Reported) Pantoprazole* (Protonix*), 40 MG ORAL DAILY PRN for gerd, (Reported) Miscellaneous Medications [traumeel], Unknown Dose, (Reported) Discontinued Medications Amoxicillin/Potassium Clav 875-125* (Augmentin 875-125 Tablet*), 1 TAB ORAL TWICE A DAY, (Reported) Discontinued Reason: Therapy completed Patient History History Provided By: Medical Record, PMD Healthcare decision maker Resuscitation status Advanced Directive on File Past Medical/Surgical History Past Medical/Surgical History: (1) Compression fracture of lumbar vertebra (2) Compression fracture of thoracic vertebra (3) Intractable low back pain (4) Dehydration (5) DIANNE (acute kidney injury) (6) Electrolyte imbalance (7) UTI (urinary tract infection) Review of Systems Review of Symptoms General ROS: no weight loss or fever Psychological ROS: no depression or mood changes, no memory loss Ophthalmic ROS: no visual changes or eye irritation ENT ROS: no nasal congestion, hearing loss, dizziness Allergy and Immunology ROS: no allergic symptoms or urticaria Hematological and Lymphatic ROS: no swollen glands, unusual bleeding or bruising Endocrine ROS: no polyuria, polydipsia, weight changes, temperature intolerance Respiratory ROS: no cough, shortness of breath, or wheezing Cardiovascular ROS: no chest pain or dyspnea on exertion Gastrointestinal ROS: denies abdominal pain, bright red blood in stool. Musculoskeletal ROS: no myalgias or arthralgias Neurological ROS: no TIA or stroke symptoms Dermatological ROS: no new or changing skin lesions, rashes or pruritis Physical Exam Physical Exam General appearance: alert, cooperative, no distress, appears stated age Head: Normocephalic, without obvious abnormality, atraumatic Eyes: conjunctivae/corneas clear. PERRL, EOM's intact. Fundi benign Throat: Lips, mucosa, and tongue normal. Teeth and gums normal Neck: supple, symmetrical, trachea midline, no adenopathy, thyroid: not enlarged, symmetric, no tenderness/mass/nodules, no carotid bruit and no JVD Lungs: clear to auscultation bilaterally Heart: regular rate and rhythm, S1, S2 normal, no murmur, click, rub or gallop Abdomen: soft, non-tender. Bowel sounds normal. No masses, no organomegaly Extremities: extremities normal, atraumatic, no cyanosis or edema Pulses: 2+ and symmetric Skin: Skin color, texture, turgor normal. No rashes or lesions Neurologic: Grossly normal Last 24 Hour Vital Signs Date Time Temp Pulse Resp B/P (MAP) Pulse Ox O2 Delivery O2 Flow Rate FiO2 07/15/20 16:00 98.2 74 20 135/83 (100) 98 07/15/20 12:00 97.7 79 20 132/87 (102) 98 07/15/20 09:00 Nasal Cannula 2.0 07/15/20 08:00 98.1 93 20 135/85 (102) 97 07/15/20 04:00 96.7 69 18 159/84 (109) 97 07/15/20 00:00 97.2 69 18 156/93 (114) 97 Intake and Output 07/14/20 07/15/20 19:00 07:00 Intake Total 1390.0 ml Output Total 200 ml Balance 1190.0 ml Intake Oral 480 ml IV Total 310.0 ml Other 600 ml Output Urine Total 200 ml # Voids 9 # Bowel Movements 2 Laboratory Tests Test 07/15/20 05:50 Sodium Level 137 MMOL/L (136-145) Potassium Level 3.5 MMOL/L (3.5-5.1) Chloride Level 103 MMOL/L (98-107) Carbon Dioxide Level 24 MMOL/L (21-32) Anion Gap 10 mmol/L (5-15) Blood Urea Nitrogen 8 mg/dL (7-18) Creatinine 0.7 MG/DL (0.55-1.30) Estimat Glomerular Filtration Rate > 60 mL/min (>60) Glucose Level 87 MG/DL (74-106) Calcium Level 7.7 MG/DL (8.5-10.1) L Phosphorus Level 2.7 MG/DL (2.5-4.9) Magnesium Level 1.6 MG/DL (1.8-2.4) L Total Bilirubin 0.5 MG/DL (0.2-1.0) Aspartate Amino Transf (AST/SGOT) 16 U/L (15-37) Alanine Aminotransferase (ALT/SGPT) 29 U/L (12-78) Alkaline Phosphatase 88 U/L (46-116) Total Protein 5.3 G/DL (6.4-8.2) L Albumin 2.4 G/DL (3.4-5.0) L Globulin 2.9 g/dL Albumin/Globulin Ratio 0.8 (1.0-2.7) L Vitamin D 25-Hydroxy Pending 25-Hydroxy Vitamin D2 Pending 25-Hydroxy Vitamin D3 Pending Thyroid Stimulating Hormone (TSH) 3.254 uiU/mL (0.358-3.740) Height (Feet): 4 Height (Inches): 11.00 Weight (Pounds): 103 Medications Current Medications Medications (Trade) Dose Ordered Sig/Jessica Route PRN Reason Start Time Stop Time Status Last Admin Dose Admin Acetaminophen (Tylenol) 650 mg Q6H PRN ORAL Mild Pain (Pain Scale 1-3) 07/12/20 09:15 08/11/20 09:14 Acetaminophen (Tylenol) 650 mg Q6H PRN ORAL Temp >100.5 07/12/20 09:15 08/11/20 09:14 Calcitonin [place] (Miacalcin) 1 sprays DAILY NASAL 07/13/20 14:00 10/11/20 13:59 07/15/20 08:04 Calcium/Vitamin D (OsCal D) 1 tab DAILY ORAL 07/13/20 12:45 10/11/20 12:44 07/15/20 08:03 Ceftriaxone Sodium 2 gm/ Dextrose 55 ml @ 110 mls/hr Q24H IVPB 07/13/20 13:00 07/20/20 12:59 07/15/20 13:34 Docusate Sodium (Colace) 100 mg TID ORAL 07/11/20 18:00 08/10/20 01:44 07/15/20 17:46 Ergocalciferol (Drisdol) 50,000 intlu QWEEK ORAL 07/14/20 15:00 08/14/20 14:59 07/14/20 14:25 Escitalopram Oxalate (Lexapro) 10 mg DAILY ORAL 07/11/20 09:00 08/10/20 08:59 07/15/20 08:03 Fentanyl (Duragesic) 1 patch Q72H TDERMAL 07/12/20 11:00 07/19/20 10:59 07/15/20 10:56 Fentanyl (Duragesic) 1 patch Q72H TDERMAL 07/15/20 10:00 07/22/20 09:59 07/15/20 09:58 Hydromorphone HCl (Dilaudid) 1 mg Q4H PRN SUBQ Severe Pain (Pain Scale 7-10) 07/12/20 13:30 07/19/20 13:29 07/15/20 20:22 Iron Sucrose 100 mg/Sodium Chloride 60 ml @ 240 mls/hr BEDTIME IVPB 07/13/20 21:00 07/17/20 21:14 07/15/20 20:21 Metoclopramide HCl (Reglan) 10 mg Q6H PRN IVP Nausea & Vomiting 07/11/20 01:45 08/10/20 01:44 07/15/20 08:06 Miscellaneous Medication (fentaNYL Destruction) 1 ea Q72H MISC 07/15/20 09:00 08/14/20 08:59 07/15/20 09:01 Mupirocin (Bactroban Oint) 1 applic THREE TIMES A DAY PRN TOPIC cat scratches and bites 07/11/20 01:45 07/16/20 01:44 Naloxone HCl (Narcan) 0.1 mg PRN IV Sedation scale 3 or 4 07/12/20 09:00 Pantoprazole (Protonix) 40 mg BID ORAL 07/11/20 13:15 08/10/20 01:44 07/15/20 17:46 Patient Own Medication (Patient's Own Med) 1 ea DAILY ORAL 07/14/20 09:00 08/13/20 08:59 07/15/20 08:03 Polyethylene Glycol (Miralax) 17 gm QHS ORAL 07/11/20 21:00 08/10/20 20:59 07/14/20 20:49 Prednisone (predniSONE) 10 mg DAILY ORAL 07/11/20 09:00 08/10/20 08:59 07/15/20 08:04 Assessment/Plan Problem List: (1) Open wound, lower leg Assessment & Plan: Pt presented on admission with full thickness ulcer lateral L tibia(L)1.9cm x (W)2.2cm. Pt stated she bumped her leg against car few months ago and developed ulcer. Pt stated she also previously saw a Protozoologist in community. Base of wound is 100% fibrinous slough. Marginal erythema along borders. Small amt rubi coloured exudate.No odor noted. Hemosiderin deposits noted to bilat lower ext. R foot deformity with numerous historical surgical scars. Pt also presented on admission with saral erythema which has now resolved. Tx.Plan: Cleanse Wound Lateral R tibia with Saline. Apply Therahoney. Apply Maxsorb Extra . Apply Cavilon Skin Barrier Periwound. Cover with Optifoam drsg. Change Daily and prn. Elevate L leg with Pillow. Duplex US nutritional optimization will follow with recs thank you ICD Codes: S81.809A - Unspecified open wound, unspecified lower leg, initial encounter SNOMED: 125772661 (2) Dehydration Assessment & Plan: Large vessels are seen around the pancreas. Gallbladder there is trace no gallstones. There is mild gallbladder wall thickening, gallbladder wall measuring 4 mm thick Sonographic Abdul's sign is negative. Common bile duct measures 6 mm in diameter. No intrahepatic biliary ductal dilatation. Liver demonstrates normal echogenicity, no focal abnormality. Portal vein and hepatic veins are patent. Pancreas is unremarkable although anechoic round structures are seen in the peripancreatic region. Spleen is unremarkable. However, a prominent vascular structures seen in the splenic hilum. Left kidney measures 9.9 cm in length. Right kidney measures 8 cm length. Both kidneys demonstrate normal echogenicity. There is no hydronephrosis. A calcification measuring 4 mm in diameter is seen in the renal sinus on the right. There is an 8 mm left lower pole calcification on the left. Bladder is nondistended, equivocally mildly thick-walled. Non-aneurysmal abdominal aorta . Unusual pelvic fluid appears to be within the vagina or less likely the endocervical canal Impression: Negative for gallstones. However, there is mild gallbladder wall thickening. Possibility of acalculous acute cholecystitis should be considered Peripancreatic cysts versus possible varices Splenic hilar vascular structure, could represent a hilar varix or splenic artery aneurysm. Consider contrast CT for further evaluation Bilateral nonobstructive intrarenal calculi Unusual fluid within the endocervical canal or vagina, favor the latter ICD Codes: E86.0 - Dehydration SNOMED: 97173395 (3) DIANNE (acute kidney injury) ICD Codes: N17.9 - Acute kidney failure, unspecified SNOMED: 4355897, 94955858 (4) Electrolyte imbalance ICD Codes: E87.8 - Other disorders of electrolyte and fluid balance, not elsewhere classified SNOMED: 817110578 (5) UTI (urinary tract infection) ICD Codes: N39.0 - Urinary tract infection, site not specified SNOMED: 64508352 Qualifiers: Qualified Codes: N30.00 - Acute cystitis without hematuria (6) Compression fracture of lumbar vertebra ICD Codes: S32.000A - Wedge compression fracture of unspecified lumbar vertebra, initial encounter for closed fracture SNOMED: 473079218 Qualifiers: Qualified Codes: S32.000A - Wedge compression fracture of unspecified lumbar vertebra, initial encounter for closed fracture (7) Compression fracture of thoracic vertebra ICD Codes: S22.000A - Wedge compression fracture of unspecified thoracic vertebra, initial encounter for closed fracture SNOMED: 675476544 Qualifiers: Qualified Codes: S22.000A - Wedge compression fracture of unspecified thoracic vertebra, initial encounter for closed fracture (8) Intractable low back pain ICD Codes: M54.5 - Low back pain SNOMED: [id number] Tomas Brumfield Jul 15, 2020 22:17
[2020-07-16] VITALS: BP 142/88
[2020-07-16] MEDS: HYDROmorphone 1mg/ml Carpuject SUBQ PRN ×6 (00:35→21:51)
[2020-07-16 04:00] VITALS: BP 161/90
[2020-07-16 06:39] LABS: EOSINOPHILS % (AUTO) 0.3 % (0.0-3.0); HEMATOCRIT 37.1 % (37.0-47.0); HEMOGLOBIN 13.2 G/DL (12.0-16.0); LYMPHOCYTES % (AUTO) 16.2 % (20.0-45.0); MEAN CORPUSCULAR VOLUME 87 FL (80-99); MONOCYTES % (AUTO) 11.2 % (1.0-10.0); NEUTROPHILS % (AUTO) 71.2 % (45.0-75.0); PLATELET COUNT 188 K/UL (150-450); RED BLOOD COUNT 4.28 M/UL (4.20-5.40); RED CELL DISTRIBUTION WIDTH 11.8 % (11.6-14.8); WHITE BLOOD COUNT 6.6 K/UL (4.8-10.8)
[2020-07-16 07:18] LABS: ALANINE AMINOTRANSFERASE 30 U/L (12-78); ALBUMIN 2.7 G/DL (3.4-5.0); ALBUMIN/GLOBULIN RATIO 0.8 (1.0-2.7); ALKALINE PHOSPHATASE 86 U/L (46-116); ANION GAP 6 mmol/L (5-15); ASPARTATE AMINO TRANSFERASE 18 U/L (15-37); BILIRUBIN,TOTAL 0.5 MG/DL (0.2-1.0); BLOOD UREA NITROGEN 7 mg/dL (7-18); CALCIUM 8.1 MG/DL (8.5-10.1); CARBON DIOXIDE 27 MMOL/L (21-32); CHLORIDE 100 MMOL/L (98-107); CREATININE 0.7 MG/DL (0.55-1.30); POTASSIUM 3.4 MMOL/L (3.5-5.1); SODIUM 133 MMOL/L (136-145)
[2020-07-16 08:00] VITALS: BP 136/90
--- NOTE | 2020-07-16 08:52 | General Progress Note ---
Subjective Date patient seen: Jul 16, 2020 Time patient seen: 08:00 - am Allergies: Coded Allergies: NAPROXEN (Verified Allergy, Unknown, 07/10/20) Subjective REVIEW OF SYSTEMS: Denies rash, fever, chills, sweating, dizziness, drowsiness, blurred vision, sore throat, or change in weight. No shortness of breath or chest pain. No nausea, vomiting, diarrhea, or blood in the stool or urine. No dysuria. HISTORY OF PRESENT ILLNESS: This is a 65-year-old female who is being seen on the Med/Surg floor of [facility]. Patient continues to have pain which is at a moderate level and better tolerated on the increase of Fentanyl patch. No new complaints at this time. Objective Last 24 Hour Vital Signs Date Time Temp Pulse Resp B/P (MAP) Pulse Ox O2 Delivery O2 Flow Rate FiO2 07/16/20 08:12 96 Nasal Cannula 2.0 28 07/16/20 04:00 97.5 90 18 161/90 (113) 95 07/16/20 00:00 97.5 62 16 142/88 (106) 98 07/15/20 21:00 Nasal Cannula 2.0 07/15/20 20:00 97.7 74 18 135/86 (102) 98 07/15/20 16:00 98.2 74 20 135/83 (100) 98 07/15/20 12:00 97.7 79 20 132/87 (102) 98 07/15/20 09:00 Nasal Cannula 2.0 Intake and Output 07/15/20 07/16/20 19:00 07:00 Intake Total 735 ml 1240 ml Output Total 500 ml 1400 ml Balance 235 ml -160 ml Intake Oral 680 ml 1000 ml IV Total 55 ml 240 ml Output Urine Total 500 ml 1400 ml # Voids 4 Laboratory Tests 07/16/20 06:00: White Blood Count 6.6, Red Blood Count 4.28, Hemoglobin 13.2, Hematocrit 37.1, Mean Corpuscular Volume 87, Mean Corpuscular Hemoglobin 30.9, Mean Corpuscular Hemoglobin Concent 35.6, Red Cell Distribution Width 11.8, Platelet Count 188, Mean Platelet Volume 6.0L, Neutrophils (%) (Auto) 71.2, Lymphocytes (%) (Auto) 16.2L, Monocytes (%) (Auto) 11.2H, Eosinophils (%) (Auto) 0.3, Basophils (%) (Auto) 1.0, Erythrocyte Sedimentation Rate 32H, Sodium Level 133L, Potassium Level 3.4L, Chloride Level 100, Carbon Dioxide Level 27, Anion Gap 6, Blood Urea Nitrogen 7, Creatinine 0.7, Estimat Glomerular Filtration Rate > 60, Glucose Level 95, Calcium Level 8.1L, Total Bilirubin 0.5, Aspartate Amino Transf (AST/SGOT) 18, Alanine Aminotransferase (ALT/SGPT) 30, Alkaline Phosphatase 86, C-Reactive Protein, Quantitative 5.6H, Total Protein 6.2L, Albumin 2.7L, Globulin 3.5, Albumin/Globulin Ratio 0.8L Height (Feet): 4 Height (Inches): 11.00 Weight (Pounds): 103 Objective PHYSICAL EXAMINATION: GENERAL: Alert, awake, and oriented. LUNGS: Decreased breath sounds bilaterally. HEART: S1 and S2 regular. ABDOMEN: Tenderness to palpation. EXTREMITIES: No cyanosis. No clubbing. No edema. NEURO: No changes. Assessment/Plan Assessment/Plan: (1) Lumbar DDD/Spondylosis (2) Thoracic compression fractures (3) Rheumatoid arthritis (4) Multiple joint pain We will continue Dilaudid and Fentanyl patch and add 12mcg Q72hrs. D/w Dr. Hung and concurred. David Morris Jul 16, 2020 08:51
[2020-07-16] MEDS: Docusate 100mg cap ORAL SCH ×3 (09:03→17:45)
[2020-07-16] MEDS: Calcium Carbonate 500mg w/Vit D 200iu tab ORAL SCH (09:04)
[2020-07-16] MEDS: RINVOQ 15 MG ORAL SCH (09:04)
[2020-07-16] MEDS: Metoclopramide 10mg/2ml Inj IVP PRN (09:08)
--- NOTE | 2020-07-16 10:10 | Nephrology Progress Note ---
Assessment/Plan Problem List: (1) DIANNE (acute kidney injury) (2) Dehydration (3) Electrolyte imbalance (4) UTI (urinary tract infection) Assessment Renal failure, likely dehydration UTI Electrolyte abnormalities Elevated liver function tests History of rheumatoid arthritis Plan July 16: Labs reviewed. Serum calcium higher. Low potassium replaced. Waiting for vitamin D level. Continue rest. July 15: Labs reviewed. Serum calcium higher. Low magnesium replaced. Continue per consultants. Vitamin D level results pending. July 14: Labs reviewed. Serum calcium is low. Medication reviewed. Patient on nasal calcitonin. Will obtain vitamin D level. Continue oral vitamin the supplement. Potassium phosphorus IV supplement ordered. Continue to monitor electrolyte and chemistries. Per orders. July 13: Potassium phosphate IV ordered. IV fluid discontinued. Patient tolerating p.o. Serum creatinine baseline. Continue to monitor electrolytes. Continue per consultants. Previously: Stop meloxicam Stop lisinopril Protonix twice daily Monitor renal parameters Avoid nephrotoxic's Urine studies Slow hydration Per orders Subjective ROS Limited/Unobtainable: No Constitutional: Reports: malaise Objective Objective Last 24 Hour Vital Signs Date Time Temp Pulse Resp B/P (MAP) Pulse Ox O2 Delivery O2 Flow Rate FiO2 07/16/20 09:23 Nasal Cannula 2.0 07/16/20 08:12 96 Nasal Cannula 2.0 28 07/16/20 08:00 97.5 101 20 136/90 (105) 95 07/16/20 04:00 97.5 90 18 161/90 (113) 95 07/16/20 00:00 97.5 62 16 142/88 (106) 98 07/15/20 21:00 Nasal Cannula 2.0 07/15/20 20:00 97.7 74 18 135/86 (102) 98 07/15/20 16:00 98.2 74 20 135/83 (100) 98 07/15/20 12:00 97.7 79 20 132/87 (102) 98 Intake and Output 07/15/20 07/16/20 19:00 07:00 Intake Total 735 ml 1240 ml Output Total 500 ml 1400 ml Balance 235 ml -160 ml Intake Oral 680 ml 1000 ml IV Total 55 ml 240 ml Output Urine Total 500 ml 1400 ml # Voids 4 Current Medications Medications (Trade) Dose Ordered Sig/Jessica Route PRN Reason Start Time Stop Time Status Last Admin Dose Admin Acetaminophen (Tylenol) 650 mg Q6H PRN ORAL Mild Pain (Pain Scale 1-3) 07/12/20 09:15 08/11/20 09:14 Acetaminophen (Tylenol) 650 mg Q6H PRN ORAL Temp >100.5 07/12/20 09:15 08/11/20 09:14 Calcitonin [place] (Miacalcin) 1 sprays DAILY NASAL 07/13/20 14:00 10/11/20 13:59 07/16/20 09:04 Calcium/Vitamin D (OsCal D) 1 tab DAILY ORAL 07/13/20 12:45 10/11/20 12:44 07/16/20 09:04 Ceftriaxone Sodium 2 gm/ Dextrose 55 ml @ 110 mls/hr Q24H IVPB 07/13/20 13:00 07/20/20 12:59 07/15/20 13:34 Docusate Sodium (Colace) 100 mg TID ORAL 07/11/20 18:00 08/10/20 01:44 07/16/20 09:03 Escitalopram Oxalate (Lexapro) 10 mg DAILY ORAL 07/11/20 09:00 08/10/20 08:59 07/16/20 09:04 Fentanyl (Duragesic) 1 patch Q72H TDERMAL 07/12/20 11:00 07/19/20 10:59 07/15/20 10:56 Fentanyl (Duragesic) 1 patch Q72H TDERMAL 07/15/20 10:00 07/22/20 09:59 07/15/20 09:58 Hydromorphone HCl (Dilaudid) 1 mg Q4H PRN SUBQ Severe Pain (Pain Scale 7-10) 07/12/20 13:30 07/19/20 13:29 07/16/20 09:00 Iron Sucrose 100 mg/Sodium Chloride 60 ml @ 240 mls/hr BEDTIME IVPB 07/13/20 21:00 07/17/20 21:14 07/15/20 20:21 Metoclopramide HCl (Reglan) 10 mg Q6H PRN IVP Nausea & Vomiting 07/11/20 01:45 08/10/20 01:44 07/16/20 09:08 Miscellaneous Medication (fentaNYL Destruction) 1 ea Q72H MISC 07/15/20 09:00 08/14/20 08:59 07/15/20 09:01 Naloxone HCl (Narcan) 0.1 mg PRN IV Sedation scale 3 or 4 07/12/20 09:00 Pantoprazole (Protonix) 40 mg BID ORAL 07/11/20 13:15 08/10/20 01:44 07/16/20 09:04 Patient Own Medication (Patient's Own Med) 1 ea DAILY ORAL 07/14/20 09:00 08/13/20 08:59 07/16/20 09:04 Polyethylene Glycol (Miralax) 17 gm QHS ORAL 07/11/20 21:00 08/10/20 20:59 07/14/20 20:49 Potassium Chloride (K-Dur) 20 meq TWICE A DAY ORAL 07/16/20 10:00 07/17/20 09:59 UNV Prednisone (predniSONE) 10 mg DAILY ORAL 07/11/20 09:00 08/10/20 08:59 07/16/20 09:03 Laboratory Tests 07/16/20 06:00: White Blood Count 6.6, Red Blood Count 4.28, Hemoglobin 13.2, Hematocrit 37.1, Mean Corpuscular Volume 87, Mean Corpuscular Hemoglobin 30.9, Mean Corpuscular Hemoglobin Concent 35.6, Red Cell Distribution Width 11.8, Platelet Count 188, Mean Platelet Volume 6.0L, Neutrophils (%) (Auto) 71.2, Lymphocytes (%) (Auto) 16.2L, Monocytes (%) (Auto) 11.2H, Eosinophils (%) (Auto) 0.3, Basophils (%) (Auto) 1.0, Erythrocyte Sedimentation Rate 32H, Sodium Level 133L, Potassium Level 3.4L, Chloride Level 100, Carbon Dioxide Level 27, Anion Gap 6, Blood Urea Nitrogen 7, Creatinine 0.7, Estimat Glomerular Filtration Rate > 60, Glucose Level 95, Calcium Level 8.1L, Total Bilirubin 0.5, Aspartate Amino Transf (AST/SGOT) 18, Alanine Aminotransferase (ALT/SGPT) 30, Alkaline Phosphatase 86, C-Reactive Protein, Quantitative 5.6H, Total Protein 6.2L, Albumin 2.7L, Globulin 3.5, Albumin/Globulin Ratio 0.8L Height (Feet): 4 Height (Inches): 11.00 Weight (Pounds): 103 General Appearance: no apparent distress Respiratory/Chest: lungs clear Abdomen: soft Objective No change Deepak Joseph MD Jul 16, 2020 10:10
--- NOTE | 2020-07-16 11:05 | General Progress Note ---
Subjective Allergies: Coded Allergies: NAPROXEN (Verified Allergy, Unknown, 07/10/20) Objective Last 24 Hour Vital Signs Date Time Temp Pulse Resp B/P (MAP) Pulse Ox O2 Delivery O2 Flow Rate FiO2 07/16/20 09:23 Nasal Cannula 2.0 07/16/20 08:12 96 Nasal Cannula 2.0 28 07/16/20 08:00 97.5 101 20 136/90 (105) 95 07/16/20 04:00 97.5 90 18 161/90 (113) 95 07/16/20 00:00 97.5 62 16 142/88 (106) 98 07/15/20 21:00 Nasal Cannula 2.0 07/15/20 20:00 97.7 74 18 135/86 (102) 98 07/15/20 16:00 98.2 74 20 135/83 (100) 98 07/15/20 12:00 97.7 79 20 132/87 (102) 98 Intake and Output 07/15/20 07/16/20 19:00 07:00 Intake Total 735 ml 1240 ml Output Total 500 ml 1400 ml Balance 235 ml -160 ml Intake Oral 680 ml 1000 ml IV Total 55 ml 240 ml Output Urine Total 500 ml 1400 ml # Voids 4 Laboratory Tests 07/16/20 06:00: White Blood Count 6.6, Red Blood Count 4.28, Hemoglobin 13.2, Hematocrit 37.1, Mean Corpuscular Volume 87, Mean Corpuscular Hemoglobin 30.9, Mean Corpuscular Hemoglobin Concent 35.6, Red Cell Distribution Width 11.8, Platelet Count 188, Mean Platelet Volume 6.0L, Neutrophils (%) (Auto) 71.2, Lymphocytes (%) (Auto) 16.2L, Monocytes (%) (Auto) 11.2H, Eosinophils (%) (Auto) 0.3, Basophils (%) (Auto) 1.0, Erythrocyte Sedimentation Rate 32H, Sodium Level 133L, Potassium Level 3.4L, Chloride Level 100, Carbon Dioxide Level 27, Anion Gap 6, Blood Urea Nitrogen 7, Creatinine 0.7, Estimat Glomerular Filtration Rate > 60, Glucose Lev el 95, Calcium Level 8.1L, Total Bilirubin 0.5, Aspartate Amino Transf (AST/SGOT) 18, Alanine Aminotransferase (ALT/SGPT) 30, Alkaline Phosphatase 86, C-Reactive Protein, Quantitative 5.6H, Total Protein 6.2L, Albumin 2.7L, Globulin 3.5, Albumin/Globulin Ratio 0.8L Height (Feet): 4 Height (Inches): 11.00 Weight (Pounds): 103 Assessment/Plan Assessment/Plan: S: I am in pain O: seems in moderate pain , pain well managed PHYSICAL EXAMINATION:HEAD AND NECK: Atraumatic and normocephalic. CHEST: Clear to auscultation.HEART: S1 and S2. Regular rate and rhythm. ABDOMEN: Soft. No organomegaly.MUSCULOSKELETAL: Diffuse deformity in all of her joints. Positive for stooped postures and pain in the thoracic area. NEUROLOGIC: The patient is awake, alert, and oriented x3 with incidence of delirious, iatrogenic secondary to narcotic pain medication. IMAGING: Spine CT dated July 10, reviewed shows compression fractures of T10, T12, and L1. LABORATORY DATA: Labs dated July 16 ASSESSMENT AND PLAN: 1. Mechanical fall and multiple thoracic spine compression deformity fractures in multiple ages. 2. UTI- Gr negative 3. Pain management. 4. Rheumatoid arthritis and severe debilitating arthritic disease. 5. Hypertension. 6. Anxiety and depression. 7. LGIBleed 7. GI and DVT prophylaxis. PLAN OF CARE: pain management ARU/SNIF placement PT.PT eval Consult GI start IV- iron supplement SCD, stopped the Heparin products Jessica Ag MD Jul 16, 2020 11:05
[2020-07-16 12:00] VITALS: BP 149/92
--- NOTE | 2020-07-16 12:03 | Infectious Diseases Prog Note ---
Assessment/Plan Assessment: Sepsis UTI- ?pyelo ( had n/v )( dysuria improving) -u/a wbc 15-20, nit neg, leuk +2; ucx >100k p mirabilis ( R macrobid ; otherwise S) -Bcx NTD Afebrile Leukocytosis (on low dose prednisone but this is home med and no leukocytosis upon admission); SP -CXR: no acute disease DIANNE, SP Nause/vomiting- SP Elevated LFTs, improving -Abd US: Negative for gallstones. However, there is mild gallbladder wall thickening. Possibility of acalculous acute cholecystitis should be considered Peripancreatic cysts versus possible varices. Splenic hilar vascular structure, could represent a hilar varix or splenic artery aneurysm. Consider contrast CT for further evaluation. Bilateral nonobstructive intrarenal calculi. Unusual fluid within the endocervical canal or vagina, favor the latter Back pain, sp fall- Compression fx T10, T12, L1 -CT L spine: Compression fractures of T10, T12, and L1. Given diffuse osteopenia is difficult to date the fractures, however, given subtle sclerotic appearance, suggest chronic fractures. Recommend correlation with exam for location of pain and point tenderness.Cortes catheter likely within the vaginal canal. Recommend repositioning. Additional chronic findings as above. COVID19 neg x 1 advanced RA HTN Anxiety disorder/MDD osteoporosis Plan: -restart IV Rocephin # 4 (abx d #04/02) -07/13 Sp Meropenem # 2 -07/12 Sp Ceftriaxone #3 -f/u cx -Monitor CBC/CMP, temperatures Thank you for this consultation. Will continue to follow along with you. Discussed with RN. Subjective Allergies: Coded Allergies: NAPROXEN (Verified Allergy, Unknown, 07/10/20) afebrile no leukocytosis Bcx NTD Objective Last 24 Hour Vital Signs Date Time Temp Pulse Resp B/P (MAP) Pulse Ox O2 Delivery O2 Flow Rate FiO2 07/16/20 09:23 Nasal Cannula 2.0 07/16/20 08:12 96 Nasal Cannula 2.0 28 07/16/20 08:00 97.5 101 20 136/90 (105) 95 07/16/20 04:00 97.5 90 18 161/90 (113) 95 07/16/20 00:00 97.5 62 16 142/88 (106) 98 07/15/20 21:00 Nasal Cannula 2.0 07/15/20 20:00 97.7 74 18 135/86 (102) 98 07/15/20 16:00 98.2 74 20 135/83 (100) 98 Height (Feet): 4 Height (Inches): 11.00 Weight (Pounds): 103 HEAD AND NECK: Atraumatic and normocephalic. CHEST: Clear to auscultation. HEART: S1 and S2. Regular rate and rhythm. ABDOMEN: Soft. No organomegaly. Laboratory Tests Test 07/16/20 06:00 White Blood Count 6.6 K/UL (4.8-10.8) Red Blood Count 4.28 M/UL (4.20-5.40) Hemoglobin 13.2 G/DL (12.0-16.0) Hematocrit 37.1 % (37.0-47.0) Mean Corpuscular Volume 87 FL (80-99) Mean Corpuscular Hemoglobin 30.9 PG (27.0-31.0) Mean Corpuscular Hemoglobin Concent 35.6 G/DL (32.0-36.0) Red Cell Distribution Width 11.8 % (11.6-14.8) Platelet Count 188 K/UL (150-450) Mean Platelet Volume 6.0 FL (6.5-10.1) L Neutrophils (%) (Auto) 71.2 % (45.0-75.0) Lymphocytes (%) (Auto) 16.2 % (20.0-45.0) L Monocytes (%) (Auto) 11.2 % (1.0-10.0) H Eosinophils (%) (Auto) 0.3 % (0.0-3.0) Basophils (%) (Auto) 1.0 % (0.0-2.0) Erythrocyte Sedimentation Rate 32 MM/HR (0-30) H Sodium Level 133 MMOL/L (136-145) L Potassium Level 3.4 MMOL/L (3.5-5.1) L Chloride Level 100 MMOL/L (98-107) Carbon Dioxide Level 27 MMOL/L (21-32) Anion Gap 6 mmol/L (5-15) Blood Urea Nitrogen 7 mg/dL (7-18) Creatinine 0.7 MG/DL (0.55-1.30) Estimat Glomerular Filtration Rate > 60 mL/min (>60) Glucose Level 95 MG/DL (74-106) Calcium Level 8.1 MG/DL (8.5-10.1) L Total Bilirubin 0.5 MG/DL (0.2-1.0) Aspartate Amino Transf (AST/SGOT) 18 U/L (15-37) Alanine Aminotransferase (ALT/SGPT) 30 U/L (12-78) Alkaline Phosphatase 86 U/L (46-116) C-Reactive Protein, Quantitative 5.6 mg/dL (0.00-0.90) H Total Protein 6.2 G/DL (6.4-8.2) L Albumin 2.7 G/DL (3.4-5.0) L Globulin 3.5 g/dL Albumin/Globulin Ratio 0.8 (1.0-2.7) L Current Medications Medications (Trade) Dose Ordered Sig/Jessica Route PRN Reason Start Time Stop Time Status Last Admin Dose Admin Acetaminophen (Tylenol) 650 mg Q6H PRN ORAL Mild Pain (Pain Scale 1-3) 07/12/20 09:15 08/11/20 09:14 Acetaminophen (Tylenol) 650 mg Q6H PRN ORAL Temp >100.5 07/12/20 09:15 08/11/20 09:14 Calcitonin [place] (Miacalcin) 1 sprays DAILY NASAL 07/13/20 14:00 10/11/20 13:59 07/16/20 09:04 Calcium/Vitamin D (OsCal D) 1 tab DAILY ORAL 07/13/20 12:45 10/11/20 12:44 07/16/20 09:04 Ceftriaxone Sodium 2 gm/ Dextrose 55 ml @ 110 mls/hr Q24H IVPB 07/13/20 13:00 07/20/20 12:59 07/15/20 13:34 Docusate Sodium (Colace) 100 mg TID ORAL 07/11/20 18:00 08/10/20 01:44 07/16/20 09:03 Escitalopram Oxalate (Lexapro) 10 mg DAILY ORAL 07/11/20 09:00 08/10/20 08:59 07/16/20 09:04 Fentanyl (Duragesic) 1 patch Q72H TDERMAL 07/12/20 11:00 07/19/20 10:59 07/15/20 10:56 Fentanyl (Duragesic) 1 patch Q72H TDERMAL 07/15/20 10:00 07/22/20 09:59 07/15/20 09:58 Hydromorphone HCl (Dilaudid) 1 mg Q4H PRN SUBQ Severe Pain (Pain Scale 7-10) 07/12/20 13:30 07/19/20 13:29 07/16/20 09:00 Iron Sucrose 100 mg/Sodium Chloride 60 ml @ 240 mls/hr BEDTIME IVPB 07/13/20 21:00 07/17/20 21:14 07/15/20 20:21 Metoclopramide HCl (Reglan) 10 mg Q6H PRN IVP Nausea & Vomiting 07/11/20 01:45 08/10/20 01:44 07/16/20 09:08 Miscellaneous Medication (fentaNYL Destruction) 1 ea Q72H MISC 07/15/20 09:00 08/14/20 08:59 07/15/20 09:01 Naloxone HCl (Narcan) 0.1 mg PRN IV Sedation scale 3 or 4 07/12/20 09:00 Pantoprazole (Protonix) 40 mg BID ORAL 07/11/20 13:15 08/10/20 01:44 07/16/20 09:04 Patient Own Medication (Patient's Own Med) 1 ea DAILY ORAL 07/14/20 09:00 08/13/20 08:59 07/16/20 09:04 Polyethylene Glycol (Miralax) 17 gm QHS ORAL 07/11/20 21:00 08/10/20 20:59 07/14/20 20:49 Potassium Chloride (K-Dur) 20 meq TWICE A DAY ORAL 07/16/20 11:00 07/17/20 10:59 Prednisone (predniSONE) 10 mg DAILY ORAL 07/11/20 09:00 08/10/20 08:59 07/16/20 09:03 Pushpa Tejeda M.D. Jul 16, 2020 12:03
[2020-07-16] MEDS: cefTRIAXone 2 GM in D5W 55 ML IVPB SCH (13:16)
[2020-07-16 16:00] VITALS: BP 136/88
[2020-07-16] MEDS ORDERED: celeBREX 200mg Cap **SURGERY PATIENTS ONLY ORAL SCH (18:00)
--- NOTE | 2020-07-16 19:42 | General Progress Note ---
Progress Note Progress Note REHAB F/U PROGRESS NOTE: SUBJECTIVE: SEEN BY SURGEON FOR LOWER LIMB ULCER HGB IMPROVING ON IV IRON AND FENTANYL PATCH ID FOLLOWING AT BED +/- ABD PAIN PER PT>>Rolling * Stand By Assistance * Supervision Supine to Sit * Stand By Assistance Bed Mobility Assistive Devices * Bed Rail Bed Mobility Comments * . Sit to Stand * Stand By Assistance * Contact Guard Assistance Bed to Chair/Wheelchair * Stand By Assistance * Contact Guard Assistance Transfer assistive devices * Front wheel walker Therapeutic Activities Comment * Verbal cues needed for proper hand positioning to improve her safety. Patient complains of pain * Yes Pain Comment (Include location & description) * across mid abdominal area Pain Intervention * Notified RN * Medicate prior to session Gait Training: Total Time * 15 Gait Training: Number of Units * 1 Precautions * Fall Precautions Weight Bearing Assessment Label * Bilateral lower extremity * Weight Bearing Status Full weight bearing Distance * 150 ft Assistance * Contact Guard Assistance REVIEW OF SYSTEMS: EYES: Denies diplopia. ENT: Denies dysphagia. CARDIOVASCULAR: No chest pain. PULMONARY: No short of breath. GASTROINTESTINAL: abdominal pain. GENITOURINARY: No dysuria. MUSCULOSKELETAL: Multiple pain. Acute on chronic pain syndrome. NEUROLOGIC: Generalized wea kness. PHYSICAL EXAMINATION: VITAL SIGNS: PER CHART, NOTED. HEENT: No facial droop. NECK: Supple HEART: Regular. LUNGS: Clear to auscultation bilateral. ABDOMEN: Soft. No distention. Positive bowel sounds. EXTREMITIES: Multiple deformities of hands especially and wrists. Area of bilateral knee surgery old heal noted. ulcer on lower extremity BACK: Tenderness of the thoracic and lumbar spine. NEUROLOGIC: Patient is alert and awake. She is oriented to place. Movement of bilateral upper and lower limbs somewhere between 3- to 3+/5. DATA: PER CHART, NOTED. ASSESSMENT: A 65-year-old female with 1. Thoracic and lumbar spine compression fracture/T10, T12, and L1 compression fracture. 2. Abdominal pain with elevated lipase level and abdominal ultrasound with possible report with acute cholecystitis. 3. Leukocytosis. 4. Transaminitis. 5. Urinary tract infection. 6. Chronic pain syndrome and narcotic dependency. 7. Acute on chronic pain syndrome. 8. Back pain. 9. Rheumatoid arthritis since age of 2 with multiple deformities and history of multiple surgeries including bilateral knees, wrists, and hip. 10. Debility and functional decline. 11. Gait abnormality. POSITIVE STOOL OB DEPRESSION LOWER LIMB ULCER UTI >> URINE CULTURE Final Organism 1 PROTEUS MIRABILIS COLONY COUNT: >100,000 CFU/ML PRO MIRABI M.I.C. RX --------- --- AMPICILLIN <=2 S CEFAZOLIN <=4 S CEFTAZIDIME <=1 S CEFTRIAXONE <=1 S CEFEPIME <=1 S GENTAMICIN <=1 S LEVOFLOXACIN <=0.12 S * MEROPENEM <=0.25 S NITROFURANTOIN 128 R TRIMETHOPRIM/SULFA <=20 S PIPERACILLIN/TAZOBACTAM <=4 S RECOMMENDATION: 24 hours nursing care. Physical therapy for range of motion, transfer training, endurance, balance and gait training, fall prevention with appropriate assistive device. Occupational therapy for activities of daily living, equipment function, transfer evaluation and training, upper extremity range of motion and strengthening exercise. Nursing for evaluation of her bowel and bladder, medication regimen, skin care prevention of pressure ulcer, patient and talent acquisition coordinator education. Fall precaution, pressure ulcer precaution, cardiac precaution. Continue medical management per Medicine. Incentive spirometry. Nutritional support. acute inpatient rehabilitation placement when patient is medically stable and clear pending insurance authorization. SOFT THORACOLUMBAR CORSET (TLSO) ABD PAIN >> PER PMD PSYCH F/U CARE ABX PER ID CALCITONIN NASAL SPRAY QD, ALT NOSTRILS CA-VIT D PO QD IRON IV FENTANYL PATCH PO VIT D QW VIT D LEVEL PENDING WOUND CARE > PER SURGEON AND WOUND CARE TEAM ARU PLACEMENT >> PENDING INSURANCE AUTH Jayme Randall MD Jul 16, 2020 19:42
[2020-07-16 20:00] VITALS: BP_SYST 134; BP_SYST 83; BP_DIAS 80; BP_DIAS 88
[2020-07-16] MEDS: Iron Sucrose 100 MG in NS 55 ML IVPB SCH (21:51)
[2020-07-16] MEDS: Miralax 17gm pkt ORAL SCH (21:51)
--- NOTE | 2020-07-16 23:01 | Surgery Progress Note ---
Surgery Progress Note Subjective Symptoms: improved, tolerating diet, passing flatus, BM Objective Last 24 Hour Vital Signs Date Time Temp Pulse Resp B/P (MAP) Pulse Ox O2 Delivery O2 Flow Rate FiO2 07/16/20 21:00 Nasal Cannula 2.0 07/16/20 20:00 98.1 68 19 83/88 (86) 98 07/16/20 16:00 98.1 86 20 136/88 (104) 98 07/16/20 12:00 97.3 88 20 149/92 (111) 95 07/16/20 09:23 Nasal Cannula 2.0 07/16/20 08:12 96 Nasal Cannula 2.0 28 07/16/20 08:00 97.5 101 20 136/90 (105) 95 07/16/20 04:00 97.5 90 18 161/90 (113) 95 07/16/20 00:00 97.5 62 16 142/88 (106) 98 I&O Intake and Output 07/15/20 07/16/20 19:00 07:00 Intake Total 735 ml 1240 ml Output Total 500 ml 1400 ml Balance 235 ml -160 ml Intake Oral 680 ml 1000 ml IV Total 55 ml 240 ml Output Urine Total 500 ml 1400 ml # Voids 4 Dressing: saturated Wound: clean Cardiovascular: RSR Respiratory: clear Abdomen: soft, non-tender Extremities: no tenderness, no cyanosis, other Laboratory Tests Test 07/16/20 06:00 White Blood Count 6.6 K/UL (4.8-10.8) Red Blood Count 4.28 M/UL (4.20-5.40) Hemoglobin 13.2 G/DL (12.0-16.0) Hematocrit 37.1 % (37.0-47.0) Mean Corpuscular Volume 87 FL (80-99) Mean Corpuscular Hemoglobin 30.9 PG (27.0-31.0) Mean Corpuscular Hemoglobin Concent 35.6 G/DL (32.0-36.0) Red Cell Distribution Width 11.8 % (11.6-14.8) Platelet Count 188 K/UL (150-450) Mean Platelet Volume 6.0 FL (6.5-10.1) L Neutrophils (%) (Auto) 71.2 % (45.0-75.0) Lymphocytes (%) (Auto) 16.2 % (20.0-45.0) L Monocytes (%) (Auto) 11.2 % (1.0-10.0) H Eosinophils (%) (Auto) 0.3 % (0.0-3.0) Basophils (%) (Auto) 1.0 % (0.0-2.0) Erythrocyte Sedimentation Rate 32 MM/HR (0-30) H Sodium Level 133 MMOL/L (136-145) L Potassium Level 3.4 MMOL/L (3.5-5.1) L Chloride Level 100 MMOL/L (98-107) Carbon Dioxide Level 27 MMOL/L (21-32) Anion Gap 6 mmol/L (5-15) Blood Urea Nitrogen 7 mg/dL (7-18) Creatinine 0.7 MG/DL (0.55-1.30) Estimat Glomerular Filtration Rate > 60 mL/min (>60) Glucose Level 95 MG/DL (74-106) Calcium Level 8.1 MG/DL (8.5-10.1) L Total Bilirubin 0.5 MG/DL (0.2-1.0) Aspartate Amino Transf (AST/SGOT) 18 U/L (15-37) Alanine Aminotransferase (ALT/SGPT) 30 U/L (12-78) Alkaline Phosphatase 86 U/L (46-116) C-Reactive Protein, Quantitative 5.6 mg/dL (0.00-0.90) H Total Protein 6.2 G/DL (6.4-8.2) L Albumin 2.7 G/DL (3.4-5.0) L Globulin 3.5 g/dL Albumin/Globulin Ratio 0.8 (1.0-2.7) L Plan Problems: (1) Open wound, lower leg Assessment & Plan: Pt presented on admission with full thickness ulcer lateral L tibia(L)1.9cm x (W)2.2cm. Pt stated she bumped her leg against car few months ago and developed ulcer. Pt stated she also previously saw a Land Management Supervisor in community. Base of wound is 100% fibrinous slough. Marginal erythema along borders. Small amt rubi coloured exudate.No odor noted. Hemosiderin deposits noted to bilat lower ext. R foot deformity with numerous historical surgical scars. Pt also presented on admission with saral erythema which has now resolved. Tx.Plan: Cleanse Wound Lateral R tibia with Saline. Apply Therahoney. Apply Maxsorb Extra . Apply Cavilon Skin Barrier Periwound. Cover with Optifoam drsg. Change Daily and prn. Elevate L leg with Pillow. Duplex US nutritional optimization will follow with recs thank you (2) Dehydration Assessment & Plan: Large vessels are seen around the pancreas. Gallbladder there is trace no gallstones. There is mild gallbladder wall thickening, gallbladder wall measuring 4 mm thick Sonographic Abdul's sign is negative. Common bile duct measures 6 mm in diameter. No intrahepatic biliary ductal dilatation. Liver demonstrates normal echogenicity, no focal abnormality. Portal vein and hepatic veins are patent. Pancreas is unremarkable although anechoic round structures are seen in the peripancreatic region. Spleen is unremarkable. However, a prominent vascular structures seen in the splenic hilum. Left kidney measures 9.9 cm in length. Right kidney measures 8 cm length. Both kidneys demonstrate normal echogenicity. There is no hydronephrosis. A calcification measuring 4 mm in diameter is seen in the renal sinus on the right. There is an 8 mm left lower pole calcification on the left. Bladder is nondistended, equivocally mildly thick-walled. Non-aneurysmal abdominal aorta . Unusual pelvic fluid appears to be within the vagina or less likely the endocervical canal Impression: Negative for gallstones. However, there is mild gallbladder wall thickening. Possibility of acalculous acute cholecystitis should be considered Peripancreatic cysts versus possible varices Splenic hilar vascular structure, could represent a hilar varix or splenic artery aneurysm. Consider contrast CT for further evaluation Bilateral nonobstructive intrarenal calculi Unusual fluid within the endocervical canal or vagina, favor the latter (3) DIANNE (acute kidney injury) (4) Electrolyte imbalance (5) UTI (urinary tract infection) (6) Compression fracture of lumbar vertebra (7) Compression fracture of thoracic vertebra (8) Intractable low back pain Tomas Brumfield Jul 16, 2020 23:01
[2020-07-17] VITALS: BP 125/68
[2020-07-17] MEDS: HYDROmorphone 1mg/ml Carpuject SUBQ PRN ×6 (02:50→23:34)
[2020-07-17 04:00] VITALS: BP 121/75
[2020-07-17 06:30] LABS: BASOPHILS % (AUTO) 1.2 % (0.0-2.0); EOSINOPHILS % (AUTO) 0.4 % (0.0-3.0); HEMATOCRIT 36.4 % (37.0-47.0); HEMOGLOBIN 12.2 G/DL (12.0-16.0); LYMPHOCYTES % (AUTO) 16.1 % (20.0-45.0); MEAN CORPUSCULAR VOLUME 94 FL (80-99); MONOCYTES % (AUTO) 9.4 % (1.0-10.0); NEUTROPHILS % (AUTO) 72.8 % (45.0-75.0); PLATELET COUNT 209 K/UL (150-450); RED BLOOD COUNT 3.87 M/UL (4.20-5.40); RED CELL DISTRIBUTION WIDTH 13.2 % (11.6-14.8); WHITE BLOOD COUNT 7.1 K/UL (4.8-10.8)
[2020-07-17 06:43] LABS: ALANINE AMINOTRANSFERASE 21 U/L (12-78); ALBUMIN 2.5 G/DL (3.4-5.0); ALBUMIN/GLOBULIN RATIO 0.8 (1.0-2.7); ALKALINE PHOSPHATASE 73 U/L (46-116); ANION GAP 3 mmol/L (5-15); ASPARTATE AMINO TRANSFERASE 15 U/L (15-37); BILIRUBIN,TOTAL 0.3 MG/DL (0.2-1.0); BLOOD UREA NITROGEN 9 mg/dL (7-18); CALCIUM 7.9 MG/DL (8.5-10.1); CARBON DIOXIDE 29 MMOL/L (21-32); CHLORIDE 102 MMOL/L (98-107); CREATININE 0.8 MG/DL (0.55-1.30); PHOSPHORUS 2.8 MG/DL (2.5-4.9); SODIUM 134 MMOL/L (136-145)
[2020-07-17 08:00] VITALS: BP 114/71
--- NOTE | 2020-07-17 08:40 | General Progress Note ---
Subjective Date patient seen: Jul 17, 2020 Time patient seen: 08:00 - am Allergies: Coded Allergies: NAPROXEN (Verified Allergy, Unknown, 07/10/20) Subjective REVIEW OF SYSTEMS: Denies rash, fever, chills, sweating, dizziness, drowsiness, blurred vision, sore throat, or change in weight. No shortness of breath or chest pain. No nausea, vomiting, diarrhea, or blood in the stool or urine. No dysuria. HISTORY OF PRESENT ILLNESS: This is a 65-year-old female who is being seen on the Med/Surg floor of [facility]. Patient reports pain has been stable on the medications. She has no new complaints and is laying in bed with no signs of pain or distress. Objective Last 24 Hour Vital Signs Date Time Temp Pulse Resp B/P (MAP) Pulse Ox O2 Delivery O2 Flow Rate FiO2 07/17/20 07:23 97.7 07/17/20 04:00 97.7 67 20 121/75 (90) 97 07/17/20 03:20 97.5 07/17/20 00:00 97.5 71 19 125/68 (87) 98 07/16/20 22:21 98.1 07/16/20 21:00 Nasal Cannula 2.0 07/16/20 20:00 98.1 68 19 134/80 (98) 98 07/16/20 16:00 98.1 86 20 136/88 (104) 98 07/16/20 12:00 97.3 88 20 149/92 (111) 95 07/16/20 09:23 Nasal Cannula 2.0 Intake and Output 07/16/20 07/17/20 19:00 07:00 Intake Total 720 ml 650 ml Output Total 150 ml 500 ml Balance 570 ml 150 ml Intake Oral 720 ml 650 ml Output Urine Total 150 ml 500 ml # Voids 3 Laboratory Tests 07/17/20 05:30: White Blood Count 7.1, Red Blood Count 3.87L, Hemoglobin 12.2, Hematocrit 36.4L, Mean Corpuscular Volume 94#, Mean Corpuscular Hemoglobin 31.5H, Mean Corpuscular Hemoglobin Concent 33.5, Red Cell Distribution Width 13.2, Platelet Count 209, Mean Platelet Volume 6.7, Neutrophils (%) (Auto) 72.8, Lymphocytes (%) (Auto) 16 .1L, Monocytes (%) (Auto) 9.4, Eosinophils (%) (Auto) 0.4, Basophils (%) (Auto) 1.2, Sodium Level 134L, Potassium Level 4.0, Chloride Level 102, Carbon Dioxide Level 29, Anion Gap 3L, Blood Urea Nitrogen 9, Creatinine 0.8, Estimat Glomerular Filtration Rate > 60, Glucose Level 80, Calcium Level 7.9L, Phosphoru s Level 2.8, Magnesium Level 1.6L, Total Bilirubin 0.3, Aspartate Amino Transf (AST/SGOT) 15, Alanine Aminotransferase (ALT/SGPT) 21, Alkaline Phosphatase 73, C-Reactive Protein, Quantitative 3.6H, Total Protein 5.7L, Albumin 2.5L, Globulin 3.2, Albumin/Globulin Ratio 0.8L Height (Feet): 4 Height (Inches): 11.00 Weight (Pounds): 103 Objective PHYSICAL EXAMINATION: GENERAL: Alert, awake, and oriented. LUNGS: Decreased breath sounds bilaterally. HEART: S1 and S2 regular. ABDOMEN: Tenderness to palpation. EXTREMITIES: No cyanosis. No clubbing. No edema. NEURO: No changes. Assessment/Plan Assessment/Plan: (1) Lumbar DDD/Spondylosis (2) Thoracic compression fractures (3) Rheumatoid arthritis (4) Multiple joint pain We will continue Dilaudid and Fentanyl patch D/w Dr. Hung and concurred. David Morris Jul 17, 2020 08:40
[2020-07-17] MEDS: Calcium Carbonate 500mg w/Vit D 200iu tab ORAL SCH (08:43)
[2020-07-17] MEDS: Docusate 100mg cap ORAL SCH ×3 (08:43→17:46)
[2020-07-17] MEDS: Meloxicam 15 MG TAB ORAL SCH (08:44)
[2020-07-17] MEDS: Metoclopramide 10mg/2ml Inj IVP PRN (08:44)
--- NOTE | 2020-07-17 11:20 | Nephrology Progress Note ---
Assessment/Plan Problem List: (1) DIANNE (acute kidney injury) (2) Dehydration (3) Electrolyte imbalance (4) UTI (urinary tract infection) Assessment Renal failure, likely dehydration UTI Electrolyte abnormalities Elevated liver function tests History of rheumatoid arthritis Plan July 17: Magnesium supplement ordered. Renal parameters stable. Vitamin D level pending. July 16: Labs reviewed. Serum calcium higher. Low potassium replaced. Waiting for vitamin D level. Continue rest. July 15: Labs reviewed. Serum calcium higher. Low magnesium replaced. Continue per consultants. Vitamin D level results pending. July 14: Labs reviewed. Serum calcium is low. Medication reviewed. Patient on nasal calcitonin. Will obtain vitamin D level. Continue oral vitamin the supplement. Potassium phosphorus IV supplement ordered. Continue to monitor electrolyte and chemistries. Per orders. July 13: Potassium phosphate IV ordered. IV fluid discontinued. Patient tolerating p.o. Serum creatinine baseline. Continue to monitor electrolytes. Continue per consultants. Previously: Stop meloxicam Stop lisinopril Protonix twice daily Monitor renal parameters Avoid nephrotoxic's Urine studies Slow hydration Per orders Subjective ROS Limited/Unobtainable: No Constitutional: Reports: malaise Objective Objective Last 24 Hour Vital Signs Date Time Temp Pulse Resp B/P (MAP) Pulse Ox O2 Delivery O2 Flow Rate FiO2 07/17/20 09:00 Nasal Cannula 2.0 07/17/20 08:00 97.2 93 18 114/71 (85) 97 07/17/20 07:23 97.7 07/17/20 04:00 97.7 67 20 121/75 (90) 97 07/17/20 03:20 97.5 07/17/20 00:00 97.5 71 19 125/68 (87) 98 07/16/20 22:21 98.1 07/16/20 21:00 Nasal Cannula 2.0 07/16/20 20:00 98.1 68 19 134/80 (98) 98 07/16/20 16:00 98.1 86 20 136/88 (104) 98 07/16/20 12:00 97.3 88 20 149/92 (111) 95 Intake and Output 07/16/20 07/17/20 19:00 07:00 Intake Total 720 ml 650 ml Output Total 150 ml 500 ml Balance 570 ml 150 ml Intake Oral 720 ml 650 ml Output Urine Total 150 ml 500 ml # Voids 3 Laboratory Tests 07/17/20 05:30: White Blood Count 7.1, Red Blood Count 3.87L, Hemoglobin 12.2, Hematocrit 36.4L, Mean Corpuscular Volume 94#, Mean Corpuscular Hemoglobin 31.5H, Mean Corpuscular Hemoglobin Concent 33.5, Red Cell Distribution Width 13.2, Platelet Count 209, Mean Platelet Volume 6.7, Neutrophils (%) (Auto) 72.8, Lymphocytes (%) (Auto) 16.1L, Monocytes (%) (Auto) 9.4, Eosinophils (%) (Auto) 0.4, Basophils (%) (Auto) 1.2, Sodium Level 134L, Potassium Level 4.0, Chloride Level 102, Carbon Dioxide Level 29, Anion Gap 3L, Blood Urea Nitrogen 9, Creatinine 0.8, Estimat Glomerular Filtration Rate > 60, Glucose Level 80, Calcium Level 7.9L, Phosphorus Level 2.8, Magnesium Level 1.6L, Total Bilirubin 0.3, Aspartate Amino Transf (AST/SGOT) 15, Alanine Aminotransferase (ALT/SGPT) 21, Alkaline Phosphatase 73, C-Reactive Protein, Quantitative 3.6H, Total Protein 5.7L, Albumin 2.5L, Globulin 3.2, Albumin/Globulin Ratio 0.8L Height (Feet): 4 Height (Inches): 11.00 Weight (Pounds): 103 General Appearance: no apparent distress Cardiovascular: normal rate Respiratory/Chest: lungs clear Abdomen: soft Objective No change Deepak Joseph MD Jul 17, 2020 11:20
[2020-07-17 12:00] VITALS: BP 133/77
--- NOTE | 2020-07-17 13:18 | Infectious Diseases Prog Note ---
Assessment/Plan Assessment: Sepsis UTI- ?pyelo ( had n/v )( dysuria improving)- SP rx -u/a wbc 15-20, nit neg, leuk +2; ucx >100k p mirabilis ( R macrobid ; otherwise S) -Bcx NTD Afebrile Leukocytosis (on low dose prednisone but this is home med and no leukocytosis upon admission); SP -CXR: no acute disease DIANNE, SP Nause/vomiting- SP Elevated LFTs, improving -Abd US: Negative for gallstones. However, there is mild gallbladder wall thickening. Possibility of acalculous acute cholecystitis should be considered Peripancreatic cysts versus possible varices. Splenic hilar vascular structure, could represent a hilar varix or splenic artery aneurysm. Consider contrast CT for further evaluation. Bilateral nonobstructive intrarenal calculi. Unusual fluid within the endocervical canal or vagina, favor the latter Back pain, sp fall- Compression fx T10, T12, L1 -CT L spine: Compression fractures of T10, T12, and L1. Given diffuse osteopenia is difficult to date the fractures, however, given subtle sclerotic appearance, suggest chronic fractures. Recommend correlation with exam for location of pain and point tenderness.Cortes catheter likely within the vaginal canal. Recommend repositioning. Additional chronic findings as above. COVID19 neg x 1 advanced RA HTN Anxiety disorder/MDD osteoporosis Plan: -Continue to monitor off abx -07/16 SP Ceftriaxone #4 -07/13 Sp Meropenem # 2 -07/12 Sp Ceftriaxone #3 -Monitor CBC/CMP, temperatures -discharge planning Thank you for this consultation. Will continue to follow along with you. Discussed with RN. Subjective Allergies: Coded Allergies: NAPROXEN (Verified Allergy, Unknown, 07/10/20) afebrile no leukocytosis Bcx NTD discharge planning Objective Last 24 Hour Vital Signs Date Time Temp Pulse Resp B/P (MAP) Pulse Ox O2 Delivery O2 Flow Rate FiO2 07/17/20 12:00 97.9 76 18 133/77 (95) 97 07/17/20 11:43 97.2 07/17/20 09:00 Nasal Cannula 2.0 07/17/20 08:00 97.2 93 18 114/71 (85) 97 07/17/20 07:23 97.7 07/17/20 04:00 97.7 67 20 121/75 (90) 97 07/17/20 03:20 97.5 07/17/20 00:00 97.5 71 19 125/68 (87) 98 07/16/20 22:21 98.1 07/16/20 21:00 Nasal Cannula 2.0 07/16/20 20:00 98.1 68 19 134/80 (98) 98 07/16/20 16:00 98.1 86 20 136/88 (104) 98 Height (Feet): 4 Height (Inches): 11.00 Weight (Pounds): 103 HEAD AND NECK: Atraumatic and normocephalic. CHEST: Clear to auscultation. HEART: S1 and S2. Regular rate and rhythm. ABDOMEN: Soft. No organomegaly. Laboratory Tests Test 07/17/20 05:30 White Blood Count 7.1 K/UL (4.8-10.8) Red Blood Count 3.87 M/UL (4.20-5.40) L Hemoglobin 12.2 G/DL (12.0-16.0) Hematocrit 36.4 % (37.0-47.0) L Mean Corpuscular Volume 94 FL (80-99) # Mean Corpuscular Hemoglobin 31.5 PG (27.0-31.0) H Mean Corpuscular Hemoglobin Concent 33.5 G/DL (32.0-36.0) Red Cell Distribution Width 13.2 % (11.6-14.8) Platelet Count 209 K/UL (150-450) Mean Platelet Volume 6.7 FL (6.5-10.1) Neutrophils (%) (Auto) 72.8 % (45.0-75.0) Lymphocytes (%) (Auto) 16.1 % (20.0-45.0) L Monocytes (%) (Auto) 9.4 % (1.0-10.0) Eosinophils (%) (Auto) 0.4 % (0.0-3.0) Basophils (%) (Auto) 1.2 % (0.0-2.0) Sodium Level 134 MMOL/L (136-145) L Potassium Level 4.0 MMOL/L (3.5-5.1) Chloride Level 102 MMOL/L (98-107) Carbon Dioxide Level 29 MMOL/L (21-32) Anion Gap 3 mmol/L (5-15) L Blood Urea Nitrogen 9 mg/dL (7-18) Creatinine 0.8 MG/DL (0.55-1.30) Estimat Glomerular Filtration Rate > 60 mL/min (>60) Glucose Level 80 MG/DL (74-106) Calcium Level 7.9 MG/DL (8.5-10.1) L Phosphorus Level 2.8 MG/DL (2.5-4.9) Magnesium Level 1.6 MG/DL (1.8-2.4) L Total Bilirubin 0.3 MG/DL (0.2-1.0) Aspartate Amino Transf (AST/SGOT) 15 U/L (15-37) Alanine Aminotransferase (ALT/SGPT) 21 U/L (12-78) Alkaline Phosphatase 73 U/L (46-116) C-Reactive Protein, Quantitative 3.6 mg/dL (0.00-0.90) H Total Protein 5.7 G/DL (6.4-8.2) L Albumin 2.5 G/DL (3.4-5.0) L Globulin 3.2 g/dL Albumin/Globulin Ratio 0.8 (1.0-2.7) L Current Medications Medications (Trade) Dose Ordered Sig/Jessica Route PRN Reason Start Time Stop Time Status Last Admin Dose Admin Acetaminophen (Tylenol) 650 mg Q6H PRN ORAL Mild Pain (Pain Scale 1-3) 07/12/20 09:15 08/11/20 09:14 Acetaminophen (Tylenol) 650 mg Q6H PRN ORAL Temp >100.5 07/12/20 09:15 08/11/20 09:14 Calcitonin [place] (Miacalcin) 1 sprays DAILY NASAL 07/13/20 14:00 10/11/20 13:59 07/17/20 08:45 Calcium/Vitamin D (OsCal D) 1 tab DAILY ORAL 07/13/20 12:45 10/11/20 12:44 07/17/20 08:43 Ceftriaxone Sodium 2 gm/ Dextrose 55 ml @ 110 mls/hr Q24H IVPB 07/13/20 13:00 07/20/20 12:59 07/16/20 13:16 Docusate Sodium (Colace) 100 mg TID ORAL 07/11/20 18:00 08/10/20 01:44 07/17/20 12:43 Escitalopram Oxalate (Lexapro) 10 mg DAILY ORAL 07/11/20 09:00 08/10/20 08:59 07/17/20 08:43 Fentanyl (Duragesic) 1 patch Q72H TDERMAL 07/12/20 11:00 07/19/20 10:59 07/15/20 10:56 Fentanyl (Duragesic) 1 patch Q72H TDERMAL 07/15/20 10:00 07/22/20 09:59 07/15/20 09:58 Hydromorphone HCl (Dilaudid) 1 mg Q4H PRN SUBQ Severe Pain (Pain Scale 7-10) 07/12/20 13:30 07/19/20 13:29 07/17/20 11:13 Iron Sucrose 100 mg/Sodium Chloride 60 ml @ 240 mls/hr BEDTIME IVPB 07/13/20 21:00 07/17/20 21:14 07/16/20 21:51 Magnesium Sulfate 100 ml @ 100 mls/hr Q1H IVPB 07/17/20 11:30 07/17/20 13:29 07/17/20 12:43 Meloxicam (Mobic) 15 mg DAILY ORAL 07/17/20 09:00 08/16/20 08:59 Metoclopramide HCl (Reglan) 10 mg Q6H PRN IVP Nausea & Vomiting 07/11/20 01:45 08/10/20 01:44 07/17/20 08:44 Miscellaneous Medication (fentaNYL Destruction) 1 ea Q72H MISC 07/15/20 09:00 08/14/20 08:59 07/15/20 09:01 Naloxone HCl (Narcan) 0.1 mg PRN IV Sedation scale 3 or 4 07/12/20 09:00 Pantoprazole (Protonix) 40 mg BID ORAL 07/11/20 13:15 08/10/20 01:44 07/17/20 08:43 Polyethylene Glycol (Miralax) 17 gm QHS ORAL 07/11/20 21:00 08/10/20 20:59 07/16/20 21:51 Prednisone (predniSONE) 10 mg DAILY ORAL 07/11/20 09:00 08/10/20 08:59 07/17/20 08:43 Pushpa Tejeda M.D. Jul 17, 2020 13:18
--- NOTE | 2020-07-17 13:21 | General Progress Note ---
Subjective Allergies: Coded Allergies: NAPROXEN (Verified Allergy, Unknown, 07/10/20) Objective Last 24 Hour Vital Signs Date Time Temp Pulse Resp B/P (MAP) Pulse Ox O2 Delivery O2 Flow Rate FiO2 07/17/20 12:00 97.9 76 18 133/77 (95) 97 07/17/20 11:43 97.2 07/17/20 09:00 Nasal Cannula 2.0 07/17/20 08:00 97.2 93 18 114/71 (85) 97 07/17/20 07:23 97.7 07/17/20 04:00 97.7 67 20 121/75 (90) 97 07/17/20 03:20 97.5 07/17/20 00:00 97.5 71 19 125/68 (87) 98 07/16/20 22:21 98.1 07/16/20 21:00 Nasal Cannula 2.0 07/16/20 20:00 98.1 68 19 134/80 (98) 98 07/16/20 16:00 98.1 86 20 136/88 (104) 98 Intake and Output 07/16/20 07/17/20 19:00 07:00 Intake Total 720 ml 650 ml Output Total 150 ml 500 ml Balance 570 ml 150 ml Intake Oral 720 ml 650 ml Output Urine Total 150 ml 500 ml # Voids 3 Laboratory Tests 07/17/20 05:30: White Blood Count 7.1, Red Blood Count 3.87L, Hemoglobin 12.2, Hematocrit 36.4L, Mean Corpuscular Volume 94#, Mean Corpuscular Hemoglobin 31.5H, Mean Corpuscular Hemoglobin Concent 33.5, Red Cell Distribution Width 13.2, Platelet Count 209, Mean Platelet Volume 6.7, Neutrophils (%) (Auto) 72.8, Lymphocytes (%) (Auto) 16.1L, Monocytes (%) (Auto) 9.4, Eosinophils (%) (Auto) 0.4, Basophils (%) (Auto) 1.2, Sodium Level 134L, Potassium Level 4.0, Chloride Level 102, Carbon Dioxide Level 29, Anion Gap 3L, Blood Urea Nitrogen 9, Creatinine 0.8, Estimat Glomerular Filtration Rate > 60, Glucose Level 80, Calcium Level 7.9L, Phosphorus Level 2.8, Magnesium Level 1.6L, Total Bilirubin 0.3, Aspartate Amino Transf (AST/SGOT) 15, Alanine Aminotransferase (ALT/SGPT) 21, Alkaline Phosphatase 73, C-Reactive Protein, Quantitative 3.6H, Total Protein 5.7L, Albumin 2.5L, Globulin 3.2, Albumin/Globulin Ratio 0.8L Height (Feet): 4 Height (Inches): 11.00 Weight (Pounds): 103 Assessment/Plan Assessment/Plan: S: I am in pain O: seems in moderate pain , pain well managed PHYSICAL EXAMINATION:HEAD AND NECK: Atraumatic and normocephalic. CHEST: Clear to auscultation.HEART: S1 and S2. Regular rate and rhythm. ABDOMEN: Soft. No organomegaly.MUSCULOSKELETAL: Diffuse deformity in all of her joints. Positive for stooped postures and pain in the thoracic area. NEUROLOGIC: The patient is awake, alert, and oriented x3 with incidence of delirious, iatrogenic secondary to narcotic pain medication. IMAGING: Spine CT dated July 10, reviewed shows compression fractures of T10, T12, and L1. LABORATORY DATA: Labs dated July 16 ASSESSMENT AND PLAN: 1. Mechanical fall and multiple thoracic spine compression deformity fractures in multiple ages. 2. UTI- Gr negative 3. Pain management. 4. Rheumatoid arthritis and severe debilitating arthritic disease. 5. Hypertension. 6. Anxiety and depression. 7. LGIBleed 7. GI and DVT prophylaxis. PLAN OF CARE: pain management ARU/SNIF placement PT.PT eval Consult GI start IV- iron supplement SCD, stopped the Heparin products Jessica Ag MD Jul 17, 2020 13:21
--- NOTE | 2020-07-17 13:23 | Surgery Progress Note ---
Surgery Progress Note Subjective Symptoms: improved, tolerating diet, voiding well, passing flatus, BM, pain decreased Additional Comments states feels better wound healing will cont local care upon d/c Objective Last 24 Hour Vital Signs Date Time Temp Pulse Resp B/P (MAP) Pulse Ox O2 Delivery O2 Flow Rate FiO2 07/17/20 12:00 97.9 76 18 133/77 (95) 97 07/17/20 11:43 97.2 07/17/20 09:00 Nasal Cannula 2.0 07/17/20 08:00 97.2 93 18 114/71 (85) 97 07/17/20 07:23 97.7 07/17/20 04:00 97.7 67 20 121/75 (90) 97 07/17/20 03:20 97.5 07/17/20 00:00 97.5 71 19 125/68 (87) 98 07/16/20 22:21 98.1 07/16/20 21:00 Nasal Cannula 2.0 07/16/20 20:00 98.1 68 19 134/80 (98) 98 07/16/20 16:00 98.1 86 20 136/88 (104) 98 I&O Intake and Output 07/16/20 07/17/20 19:00 07:00 Intake Total 720 ml 650 ml Output Total 150 ml 500 ml Balance 570 ml 150 ml Intake Oral 720 ml 650 ml Output Urine Total 150 ml 500 ml # Voids 3 Dressing: saturated Wound: clean Cardiovascular: RSR Respiratory: clear Abdomen: soft, non-tender, present bowel sounds Extremities: no edema, no tenderness, no cyanosis Laboratory Tests Test 07/17/20 05:30 White Blood Count 7.1 K/UL (4.8-10.8) Red Blood Count 3.87 M/UL (4.20-5.40) L Hemoglobin 12.2 G/DL (12.0-16.0) Hematocrit 36.4 % (37.0-47.0) L Mean Corpuscular Volume 94 FL (80-99) # Mean Corpuscular Hemoglobin 31.5 PG (27.0-31.0) H Mean Corpuscular Hemoglobin Concent 33.5 G/DL (32.0-36.0) Red Cell Distribution Width 13.2 % (11.6-14.8) Platelet Count 209 K/UL (150-450) Mean Platelet Volume 6.7 FL (6.5-10.1) Neutrophils (%) (Auto) 72.8 % (45.0-75.0) Lymphocytes (%) (Auto) 16.1 % (20.0-45.0) L Monocytes (%) (Auto) 9.4 % (1.0-10.0) Eosinophils (%) (Auto) 0.4 % (0.0-3.0) Basophils (%) (Auto) 1.2 % (0.0-2.0) Sodium Level 134 MMOL/L (136-145) L Potassium Level 4.0 MMOL/L (3.5-5.1) Chloride Level 102 MMOL/L (98-107) Carbon Dioxide Level 29 MMOL/L (21-32) Anion Gap 3 mmol/L (5-15) L Blood Urea Nitrogen 9 mg/dL (7-18) Creatinine 0.8 MG/DL (0.55-1.30) Estimat Glomerular Filtration Rate > 60 mL/min (>60) Glucose Level 80 MG/DL (74-106) Calcium Level 7.9 MG/DL (8.5-10.1) L Phosphorus Level 2.8 MG/DL (2.5-4.9) Magnesium Level 1.6 MG/DL (1.8-2.4) L Total Bilirubin 0.3 MG/DL (0.2-1.0) Aspartate Amino Transf (AST/SGOT) 15 U/L (15-37) Alanine Aminotransferase (ALT/SGPT) 21 U/L (12-78) Alkaline Phosphatase 73 U/L (46-116) C-Reactive Protein, Quantitative 3.6 mg/dL (0.00-0.90) H Total Protein 5.7 G/DL (6.4-8.2) L Albumin 2.5 G/DL (3.4-5.0) L Globulin 3.2 g/dL Albumin/Globulin Ratio 0.8 (1.0-2.7) L Plan Problems: (1) Open wound, lower leg Assessment & Plan: Pt presented on admission with full thickness ulcer lateral L tibia(L)1.9cm x (W)2.2cm. Pt stated she bumped her leg against car few months ago and developed ulcer. Pt stated she also previously saw a [facility] in community. Base of wound is 100% fibrinous slough. Marginal erythema along borders. Small amt rubi coloured exudate.No odor noted. Hemosiderin deposits noted to bilat lower ext. R foot deformity with numerous historical surgical scars. Pt also presented on admission with saral erythema which has now resolved. Tx.Plan: Cleanse Wound Lateral R tibia with Saline. Apply Therahoney. Apply Maxsorb Extra . Apply Cavilon Skin Barrier Periwound. Cover with Optifoam drsg. Change Daily and prn. Elevate L leg with Pillow. Duplex US nutritional optimization will follow with recs thank you (2) Dehydration Assessment & Plan: Large vessels are seen around the pancreas. Gallbladder there is trace no gallstones. There is mild gallbladder wall thickening, gallbladder wall measuring 4 mm thick Sonographic Abdul's sign is negative. Common bile duct measures 6 mm in diameter. No intrahepatic biliary ductal dilatation. Liver demonstrates normal echogenicity, no focal abnormality. Portal vein and hepatic veins are patent. Pancreas is unremarkable although anechoic round structures are seen in the peripancreatic region. Spleen is unremarkable. However, a prominent vascular structures seen in the splenic hilum. Left kidney measures 9.9 cm in length. Right kidney measures 8 cm length. Both kidneys demonstrate normal echogenicity. There is no hydronephrosis. A calcification measuring 4 mm in diameter is seen in the renal sinus on the right. There is an 8 mm left lower pole calcification on the left. Bladder is nondistended, equivocally mildly thick-walled. Non-aneurysmal abdominal aorta . Unusual pelvic fluid appears to be within the vagina or less likely the endocervical canal Impression: Negative for gallstones. However, there is mild gallbladder wall thickening. Possibility of acalculous acute cholecystitis should be considered Peripancreatic cysts versus possible varices Splenic hilar vascular structure, could represent a hilar varix or splenic artery aneurysm. Consider contrast CT for further evaluation Bilateral nonobstructive intrarenal calculi Unusual fluid within the endocervical canal or vagina, favor the latter (3) DIANNE (acute kidney injury) (4) Electrolyte imbalance (5) UTI (urinary tract infection) (6) Compression fracture of lumbar vertebra (7) Compression fracture of thoracic vertebra (8) Intractable low back pain Tomas Brumfield Jul 17, 2020 13:23
--- NOTE | 2020-07-17 13:38 | General Progress Note ---
Subjective ROS Limited/Unobtainable: Yes Allergies: Coded Allergies: NAPROXEN (Verified Allergy, Unknown, 07/10/20) Objective Last 24 Hour Vital Signs Date Time Temp Pulse Resp B/P (MAP) Pulse Ox O2 Delivery O2 Flow Rate FiO2 07/17/20 12:00 97.9 76 18 133/77 (95) 97 07/17/20 11:43 97.2 07/17/20 09:00 Nasal Cannula 2.0 07/17/20 08:00 97.2 93 18 114/71 (85) 97 07/17/20 07:23 97.7 07/17/20 04:00 97.7 67 20 121/75 (90) 97 07/17/20 03:20 97.5 07/17/20 00:00 97.5 71 19 125/68 (87) 98 07/16/20 22:21 98.1 07/16/20 21:00 Nasal Cannula 2.0 07/16/20 20:00 98.1 68 19 134/80 (98) 98 07/16/20 16:00 98.1 86 20 136/88 (104) 98 Intake and Output 07/16/20 07/17/20 19:00 07:00 Intake Total 720 ml 650 ml Output Total 150 ml 500 ml Balance 570 ml 150 ml Intake Oral 720 ml 650 ml Output Urine Total 150 ml 500 ml # Voids 3 Laboratory Tests 07/17/20 05:30: White Blood Count 7.1, Red Blood Count 3.87L, Hemoglobin 12.2, Hematocrit 36.4L, Mean Corpuscular Volume 94#, Mean Corpuscular Hemoglobin 31.5H, Mean Corpuscular Hemoglobin Concent 33.5, Red Cell Distribution Width 13.2, Platelet Count 209, Mean Platelet Volume 6.7, Neutrophils (%) (Auto) 72.8, Lymphocytes (%) (Auto) 16.1L, Monocytes (%) (Auto) 9.4, Eosinophils (%) (Auto) 0.4, Basophils (%) (Auto) 1.2, Sodium Level 134L, Potassium Level 4.0, Chloride Level 102, Carbon Dioxide Level 29, Anion Gap 3L, Blood Urea Nitrogen 9, Creatinine 0.8, Estimat Glomerular Filtration Rate > 60, Glucose Level 80, Calcium Level 7.9L, Phosphorus Level 2.8, Magnesium Level 1.6L, Total Bilirubin 0.3, Aspartate Amino Transf (AST/SGOT) 15, Alanine Aminotransferase (ALT/SGPT) 21, Alkaline Phosphatase 73, C-Reactive Protein, Quantitative 3.6H, Total Protein 5.7L, Albumin 2.5L, Globulin 3.2, Albumin/Globulin Ratio 0.8L Height (Feet): 4 Height (Inches): 11.00 Weight (Pounds): 103 General Appearance: no apparent distress EENT: normal ENT inspection Neck: supple Cardiovascular: normal rate Respiratory/Chest: decreased breath sounds Abdomen: normal bowel sounds, non tender, soft Extremities: non-tender Assessment/Plan Problem List: (1) Intractable low back pain ICD Codes: M54.5 - Low back pain SNOMED: 16923872728707769 (2) Compression fracture of thoracic vertebra ICD Codes: S22.000A - Wedge compression fracture of unspecified thoracic vertebra, initial encounter for closed fracture SNOMED: 552502736 Qualifiers: Qualified Codes: S22.000A - Wedge compression fracture of unspecified thoracic vertebra, initial encounter for closed fracture (3) UTI (urinary tract infection) ICD Codes: N39.0 - Urinary tract infection, site not specified SNOMED: 55781578 Qualifiers: Qualified Codes: N30.00 - Acute cystitis without hematuria Assessment/Plan: Anemia stool ob positive X1 abd pain ? peripancreatic cyst on iv iron stable H&H on ppi repeat stool ob ABD CT pain control GI procedures on hold Yosi Anderson MD Jul 17, 2020 13:38
[2020-07-17] MEDS ORDERED: Omnipaque-300 100ml vial INJ PRN (13:45)
[2020-07-17] MEDS: RINVOQ 15 MG ORAL SCH (14:19)
[2020-07-17 16:00] VITALS: BP 108/77
--- NOTE | 2020-07-17 18:24 | General Progress Note ---
Progress Note Progress Note REHAB F/U PROGRESS NOTE: SUBJECTIVE: SEEN BY GI CT ABD/PELVIS, REPEAT STOOL OB PENDING ID FOLLOWING AT BED +/- ABD PAIN PER PT>>Sit to Stand * Stand By Assistance Bed to Chair/Wheelchair * Stand By Assistance Transfer assistive devices * Front wheel walker Patient complains of pain * Yes Pain Comment (Include location & description) * across mid abdominal area Pain Intervention * Notified RN * Medicate prior to session Gait Training: Total Time * 15 Gait Training: Number of Units * 1 Precautions * Fall Precautions Weight Bearing Assessment Label * Bilateral lower extremity * Weight Bearing Status Full weight bearing Distance * 200 ft REVIEW OF SYSTEMS: EYES: Denies diplopia. ENT: Denies dysphagia. CARDIOVASCULAR: No chest pain. PULMONARY: No short of breath. GASTROINTESTINAL: abdominal pain. GENITOURINARY: No dysuria. MUSCULOSKELETAL: Multiple pain. Acute on chronic pain syndrome. NEUROLOGIC: Generalized w eakness. PHYSICAL EXAMINATION: VITAL SIGNS: PER CHART, NOTED. HEENT: No facial droop. NECK: Supple HEART: Regular. LUNGS: Clear to auscultation bilateral. ABDOMEN: Soft. No distention. Positive bowel sounds. EXTREMITIES: Multiple deformities of hands especially and wrists. Area of bilateral knee surgery old heal noted. ulcer on lower extremity BACK: Tenderness of the thoracic and lumbar spine. NEUROLOGIC: Patient is alert and awake. She is oriented to place. Movement of bilateral upper and lower limbs somewhere between 3- to 3+/5. DATA: PER CHART, NOTED. ASSESSMENT: A 65-year-old female with 1. Thoracic and lumbar spine compression fracture/T10, T12, and L1 compression fracture. 2. Abdominal pain with elevated lipase level and abdominal ultrasound with possible report with acute cholecystitis. 3. Leukocytosis. 4. Transaminitis. 5. Urinary tract infection. 6. Chronic pain syndrome and narcotic dependency. 7. Acute on chronic pain syndrome. 8. Back pain. 9. Rheumatoid arthritis since age of 2 with multiple deformities and history of multiple surgeries including bilateral knees, wrists, and hip. 10. Debility and functional decline. 11. Gait abnormality. POSITIVE STOOL OB DEPRESSION LOWER LIMB ULCER UTI >> URINE CULTURE Final Organism 1 PROTEUS MIRABILIS COLONY COUNT: >100,000 CFU/ML PRO MIRABI M.I.C. RX --------- --- AMPICILLIN <=2 S CEFAZOLIN <=4 S CEFTAZIDIME <=1 S CEFTRIAXONE <=1 S CEFEPIME <=1 S GENTAMICIN <=1 S LEVOFLOXACIN <=0.12 S * MEROPENEM <=0.25 S NITROFURANTOIN 128 R TRIMETHOPRIM/SULFA <=20 S PIPERACILLIN/TAZOBACTAM <=4 S RECOMMENDATION: 24 hours nursing care. Physical therapy for range of motion, transfer training, endurance, balance and gait training, fall prevention with appropriate assistive device. Occupational therapy for activities of daily living, equipment function, transfer evaluation and training, upper extremity range of motion and strengthening exercise. Nursing for evaluation of her bowel and bladder, medication regimen, skin care prevention of pressure ulcer, patient and dog beautician education. Fall precaution, pressure ulcer precaution, cardiac precaution. Continue medical management per Medicine. Incentive spirometry. Nutritional support. acute inpatient rehabilitation placement when patient is medically stable and clear pending insurance authorization. SOFT THORACOLUMBAR CORSET (TLSO) ABD PAIN >> PER PMD PSYCH F/U CARE ABX PER ID CALCITONIN NASAL SPRAY QD, ALT NOSTRILS CA-VIT D PO QD IRON IV FENTANYL PATCH PO VIT D QW VIT D LEVEL PENDING WOUND CARE > PER SURGEON AND WOUND CARE TEAM ARU PLACEMENT >> PENDING INSURANCE AUTH GI W/U F/U. D/W PMD. Jayme Randall MD Jul 17, 2020 18:24
[2020-07-17 20:00] VITALS: BP 139/91
[2020-07-17] MEDS: Miralax 17gm pkt ORAL SCH (21:42)
[2020-07-17] MEDS: Iron Sucrose 100 MG in NS 55 ML IVPB SCH (21:42)
[2020-07-18] VITALS: BP 141/77
[2020-07-18] MEDS: HYDROmorphone 1mg/ml Carpuject SUBQ PRN ×5 (03:51→20:37)
[2020-07-18 04:00] VITALS: BP 155/66
[2020-07-18 07:43] LABS: BASOPHILS % (AUTO) 0.8 % (0.0-2.0); EOSINOPHILS % (AUTO) 0.4 % (0.0-3.0); HEMATOCRIT 36.7 % (37.0-47.0); HEMOGLOBIN 12.6 G/DL (12.0-16.0); LYMPHOCYTES % (AUTO) 15.5 % (20.0-45.0); MEAN CORPUSCULAR VOLUME 91 FL (80-99); MONOCYTES % (AUTO) 7.8 % (1.0-10.0); NEUTROPHILS % (AUTO) 75.5 % (45.0-75.0); PLATELET COUNT 213 K/UL (150-450); RED BLOOD COUNT 4.04 M/UL (4.20-5.40); RED CELL DISTRIBUTION WIDTH 12.9 % (11.6-14.8); WHITE BLOOD COUNT 7.8 K/UL (4.8-10.8)
[2020-07-18 08:00] VITALS: BP 119/60
[2020-07-18] MEDS: Metoclopramide 10mg/2ml Inj IVP PRN (08:23)
[2020-07-18] MEDS: Calcium Carbonate 500mg w/Vit D 200iu tab ORAL SCH (08:27)
[2020-07-18] MEDS: Docusate 100mg cap ORAL SCH ×4 (08:27→17:28)
[2020-07-18] MEDS: Meloxicam 15 MG TAB ORAL SCH ×2 (08:28→08:31)
--- NOTE | 2020-07-18 08:59 | General Progress Note ---
Subjective Date patient seen: Jul 18, 2020 Time patient seen: 07:00 - am Allergies: Coded Allergies: NAPROXEN (Verified Allergy, Unknown, 07/10/20) Subjective REVIEW OF SYSTEMS: Denies rash, fever, chills, sweating, dizziness, drowsiness, blurred vision, sore throat, or change in weight. No shortness of breath or chest pain. No nausea, vomiting, diarrhea, or blood in the stool or urine. No dysuria. HISTORY OF PRESENT ILLNESS: This is a 65-year-old female who is being seen on the Med/Surg floor of [facility]. Patient is laying in bed having continued pain and now is c/o abdominal pain. Going for abdominal CT scan seen by GI. Patient continues to get the Fentanyl patch as well as 6 doses fo Dilaudid in the last 24hrs. Objective Last 24 Hour Vital Signs Date Time Temp Pulse Resp B/P (MAP) Pulse Ox O2 Delivery O2 Flow Rate FiO2 07/18/20 08:00 98.6 79 18 119/60 (79) 99 07/18/20 04:00 97.2 60 16 155/66 (95) 98 07/18/20 00:00 98.6 62 17 141/77 (98) 98 07/17/20 21:28 96 Nasal Cannula 3.0 32 07/17/20 21:00 Nasal Cannula 2.0 07/17/20 20:00 97.7 75 20 139/91 (107) 98 07/17/20 16:00 98.1 88 17 108/77 (87) 97 07/17/20 12:00 97.9 76 18 133/77 (95) 97 07/17/20 11:43 97.2 07/17/20 09:00 Nasal Cannula 2.0 Intake and Output 07/17/20 07/18/20 19:00 07:00 Intake Total 940 ml 360 ml Output Total 400 ml Balance 940 ml -40 ml Intake Oral 840 ml IV Total 100 ml Other 360 ml Output Urine Total 400 ml # Voids 2 # Bowel Movements 1 1 Laboratory Tests 07/17/20 14:20: Stool Occult Blood [Pending] 07/18/20 06:20: White Blood Count 7.8, Red Blood Count 4.04L, Hemoglobin 12.6, Hematocrit 36.7L, Mean Corpuscular Volume 91, Mean Corpuscular Hemoglobin 31.2H, Mean Corpuscular Hemoglobin Concent 34.3, Red Cell Distribution Width 12.9, Platelet Count 213, Mean Platelet Volume 6.8, Neutrophils (%) (Auto) 75.5H, Lymphocytes (%) (Auto) 15.5L, Monocytes (%) (Auto) 7.8, Eosinophils (%) (Auto) 0.4, Basophils (%) (Auto) 0.8 Height (Feet): 4 Height (Inches): 11.00 Weight (Pounds): 103 Objective PHYSICAL EXAMINATION: GENERAL: Alert, awake, and oriented. LUNGS: Decreased breath sounds bilaterally. HEART: S1 and S2 regular. ABDOMEN: Tenderness to palpation. EXTREMITIES: No cyanosis. No clubbing. No edema. NEURO: No changes. Assessment/Plan Assessment/Plan: (1) Lumbar DDD/Spondylosis (2) Thoracic compression fractures (3) Rheumatoid arthritis (4) Multiple joint pain (5) Abdominal pain r/o acalculous acute cholecystitis We will continue Dilaudid and Fentanyl patch D/w Dr. Hung and concurred. David Morris Jul 18, 2020 08:59
[2020-07-18] MEDS ORDERED: fentaNYL Destruction MISC SCH (09:00)
[2020-07-18] MEDS: RINVOQ 15 MG ORAL SCH (09:44)
[2020-07-18 12:00] VITALS: BP 121/71
--- NOTE | 2020-07-18 12:10 | General Progress Note ---
Subjective ROS Limited/Unobtainable: No Allergies: Coded Allergies: NAPROXEN (Verified Allergy, Unknown, 07/10/20) Objective Last 24 Hour Vital Signs Date Time Temp Pulse Resp B/P (MAP) Pulse Ox O2 Delivery O2 Flow Rate FiO2 07/18/20 09:55 97 Nasal Cannula 3.0 32 07/18/20 08:00 98.6 79 18 119/60 (79) 99 07/18/20 04:00 97.2 60 16 155/66 (95) 98 07/18/20 00:00 98.6 62 17 141/77 (98) 98 07/17/20 21:28 96 Nasal Cannula 3.0 32 07/17/20 21:00 Nasal Cannula 2.0 07/17/20 20:00 97.7 75 20 139/91 (107) 98 07/17/20 16:00 98.1 88 17 108/77 (87) 97 Intake and Output 07/17/20 07/18/20 19:00 07:00 Intake Total 940 ml 360 ml Output Total 400 ml Balance 940 ml -40 ml Intake Oral 840 ml IV Total 100 ml Other 360 ml Output Urine Total 400 ml # Voids 2 # Bowel Movements 1 1 Laboratory Tests 07/17/20 14:20: Stool Occult Blood [Pending] 07/18/20 06:20: White Blood Count 7.8, Red Blood Count 4.04L, Hemoglobin 12.6, Hematocrit 36.7L, Mean Corpuscular Volume 91, Mean Corpuscular Hemoglobin 31.2H, Mean Corpuscular Hemoglobin Concent 34.3, Red Cell Distribution Width 12.9, Platelet Count 213, Mean Platelet Volume 6.8, Neutrophils (%) (Auto) 75.5H, Lymphocytes (%) (Auto) 15.5L, Monocytes (%) (Auto) 7.8, Eosinophils (%) (Auto) 0.4, Basophils (%) (Auto) 0.8 Height (Feet): 4 Height (Inches): 11.00 Weight (Pounds): 103 General Appearance: alert EENT: normal ENT inspection Neck: supple Cardiovascular: regular rhythm Respiratory/Chest: decreased breath sounds Abdomen: soft, decreased bowel sounds Extremities: non-tender Assessment/Plan Problem List: (1) Intractable low back pain ICD Codes: M54.5 - Low back pain SNOMED: 42344279993417520 (2) Compression fracture of thoracic vertebra ICD Codes: S22.000A - Wedge compression fracture of unspecified thoracic vertebra, initial encounter for closed fracture SNOMED: 971665825 Qualifiers: Qualified Codes: S22.000A - Wedge compression fracture of unspecified thoracic vertebra, initial encounter for closed fracture (3) UTI (urinary tract infection) ICD Codes: N39.0 - Urinary tract infection, site not specified SNOMED: [id number] Qualifiers: Qualified Codes: N30.00 - Acute cystitis without hematuria Assessment/Plan: Anemia stool ob positive X1 abd pain ? peripancreatic cyst on iv iron stable H&H on ppi repeat stool ob ABD CT>> pending pain control GI procedures on hold Yosi Anderson MD Jul 18, 2020 12:10
--- NOTE | 2020-07-18 12:40 | Diagnostic Imaging Report ---
CT ABDOMEN AND PELVIS WITH CONTRAST INDICATION: Abdominal pain TECHNIQUE: Continuous helical transaxial imaging of the abdomen and pelvis was obtained from the lung bases to the pubic symphysis during intravenous contrast administration. Coronal 2-D reformats were also obtained. Study obtained in a Siemens sensation [address] Automatic Exposure Control was utilized. Total Dose length Product (DLP): 163.[address] Dose Index Volume (CTDIvol): 3.9 mGy COMPARISON: CT of the lumbar spine dated 07/10/2020 FINDINGS: Lower chest:: Status post bilateral breast augmentation. Trace right and small left pleural effusions. Bibasilar airspace consolidation. Hepatobiliary:: Unremarkable. Genitourinary:: No hydronephrosis. Bilateral nephrolithiasis. Dominant stone in the left mid pole measures 6 to 7 mm The uterus is myomatous, with multiple heavily calcified fibroids. The cervical canal is distended and fluid-filled. Adrenals:: Unremarkable. Pancreas:: Severe atrophy of the pancreatic by. There are multiple cystic lesions which appear to arise from the body, tail, and head of the pancreas. There is ill-defined hypodensity in the uncinate process (4:28) measuring 2.6 x 2.3 cm. Gastrointestinal:: Moderate colonic stool burden. No evidence of obstruction. Appendix is not visualized but there are no secondary signs to suggest acute appendicitis. Scattered colonic diverticulosis without evidence of acute diverticulitis. Spleen: : Unremarkable. Peritoneum:: No free air or free fluid. Vasculature:: Severe aortoiliac atherosclerotic calcification. Bones and soft tissues:: Unchanged vertebral compression fractures of T9, T10, T12, and L1. There are multilevel discogenic degenerative changes of the visualized spine. Status post total left hip arthroplasty. IMPRESSION: 1. Indeterminant cystic masses in the expected location of the severely atrophied pancreas, with unclear relationship to hypodense mass at the head of the pancreas. Neoplasm should be considered, and further evaluation with MRI/MRCP with contrast (pancreas protocol) is recommended. 2. Distended and fluid-filled cervix, which is likely pathological for a woman of postmenopausal age. Recommend gynecologic evaluation and physical examination. 3. Nonobstructing bilateral nephrolithiasis. 4. Small left and trace right pleural effusions with associated airspace consolidation which likely represent worsening atelectasis but pneumonia should be excluded clinically. 5. Marked colonic stool burden; clinical correlation for constipation is recommended. 6. Multilevel thoracolumbar compression fractures, better evaluated on CT of the lumbar spine dated 07/10/2020. The CT scanner at [facility] is accredited by the [employer] and the scans are performed using protocols designed to limit radiation exposure to as low as reasonably achievable to attain images of sufficient resolution adequate for diagnostic evaluation.
--- NOTE | 2020-07-18 12:52 | Nephrology Progress Note ---
Assessment/Plan Problem List: (1) DIANNE (acute kidney injury) (2) Dehydration (3) Electrolyte imbalance (4) UTI (urinary tract infection) Assessment Renal failure, likely dehydration UTI Electrolyte abnormalities Elevated liver function tests History of rheumatoid arthritis Plan July 18: Magnesium supplement ordered. Renal parameters are stable. Vitamin D level pending. July 17: Magnesium supplement ordered. Renal parameters stable. Vitamin D level pending. July 16: Labs reviewed. Serum calcium higher. Low potassium replaced. Waiting for vitamin D level. Continue rest. July 15: Labs reviewed. Serum calcium higher. Low magnesium replaced. Continue per consultants. Vitamin D level results pending. July 14: Labs reviewed. Serum calcium is low. Medication reviewed. Patient on nasal calcitonin. Will obtain vitamin D level. Continue oral vitamin the supplement. Potassium phosphorus IV supplement ordered. Continue to monitor electrolyte and chemistries. Per orders. July 13: Potassium phosphate IV ordered. IV fluid discontinued. Patient tolerating p.o. Serum creatinine baseline. Continue to monitor electrolytes. Continue per consultants. Previously: Stop meloxicam Stop lisinopril Protonix twice daily Monitor renal parameters Avoid nephrotoxic's Urine studies Slow hydration Per orders Subjective ROS Limited/Unobtainable: No Constitutional: Reports: malaise, weakness Objective Objective Last 24 Hour Vital Signs Date Time Temp Pulse Resp B/P (MAP) Pulse Ox O2 Delivery O2 Flow Rate FiO2 07/18/20 09:55 97 Nasal Cannula 3.0 32 07/18/20 08:00 98.6 79 18 119/60 (79) 99 07/18/20 04:00 97.2 60 16 155/66 (95) 98 07/18/20 00:00 98.6 62 17 141/77 (98) 98 07/17/20 21:28 96 Nasal Cannula 3.0 32 07/17/20 21:00 Nasal Cannula 2.0 07/17/20 20:00 97.7 75 20 139/91 (107) 98 07/17/20 16:00 98.1 88 17 108/77 (87) 97 Intake and Output 07/17/20 07/18/20 19:00 07:00 Intake Total 940 ml 360 ml Output Total 400 ml Balance 940 ml -40 ml Intake Oral 840 ml IV Total 100 ml Other 360 ml Output Urine Total 400 ml # Voids 2 # Bowel Movements 1 1 Current Medications Medications (Trade) Dose Ordered Sig/Jessica Route PRN Reason Start Time Stop Time Status Last Admin Dose Admin Acetaminophen (Tylenol) 650 mg Q6H PRN ORAL Mild Pain (Pain Scale 1-3) 07/12/20 09:15 08/11/20 09:14 Acetaminophen (Tylenol) 650 mg Q6H PRN ORAL Temp >100.5 07/12/20 09:15 08/11/20 09:14 Barium Sulfate (Readi-Cat 2) 450 ml NOW PRN ORAL Radiology Procedure 07/17/20 13:45 07/19/20 13:44 Calcitonin [place] (Miacalcin) 1 sprays DAILY NASAL 07/13/20 14:00 10/11/20 13:59 07/18/20 08:28 Calcium/Vitamin D (OsCal D) 1 tab DAILY ORAL 07/13/20 12:45 10/11/20 12:44 07/18/20 08:27 Docusate Sodium (Colace) 100 mg TID ORAL 07/11/20 18:00 08/10/20 01:44 07/18/20 08:27 Escitalopram Oxalate (Lexapro) 10 mg DAILY ORAL 07/11/20 09:00 08/10/20 08:59 07/18/20 08:28 Fentanyl (Duragesic) 1 patch Q72H TDERMAL 07/18/20 11:00 07/25/20 10:59 07/18/20 11:40 Fentanyl (Duragesic) 1 patch Q72H TDERMAL 07/18/20 11:00 07/25/20 10:59 07/18/20 11:41 Hydromorphone HCl (Dilaudid) 1 mg Q4H PRN SUBQ Severe Pain (Pain Scale 7-10) 07/18/20 11:09 07/25/20 11:08 07/18/20 12:24 Iohexol (OMNIPAQUE-300 100ml) 100 ml NOW PRN INJ Radiology Procedure 07/17/20 13:45 07/19/20 13:44 Meloxicam (Mobic) 15 mg DAILY ORAL 07/17/20 09:00 08/16/20 08:59 Metoclopramide HCl (Reglan) 10 mg Q6H PRN IVP Nausea & Vomiting 07/11/20 01:45 08/10/20 01:44 07/18/20 08:23 Miscellaneous Medication (fentaNYL Destruction) 1 ea Q72H MISC 07/18/20 09:00 08/17/20 08:59 07/18/20 09:00 Naloxone HCl (Narcan) 0.1 mg PRN IV Sedation scale 3 or 4 07/12/20 09:00 08/17/20 08:59 Pantoprazole (Protonix) 40 mg BID ORAL 07/11/20 13:15 08/10/20 01:44 07/18/20 08:29 Patient Own Medication (Patient's Own Med) 1 ea DAILY ORAL 07/17/20 14:00 08/16/20 13:59 07/18/20 09:44 Polyethylene Glycol (Miralax) 17 gm QHS ORAL 07/11/20 21:00 08/10/20 20:59 07/16/20 21:51 Prednisone (predniSONE) 10 mg DAILY ORAL 07/11/20 09:00 08/10/20 08:59 07/18/20 08:28 Laboratory Tests 07/17/20 14:20: Stool Occult Blood [Pending] 07/18/20 06:20: White Blood Count 7.8, Red Blood Count 4.04L, Hemoglobin 12.6, Hematocrit 36.7L, Mean Corpuscular Volume 91, Mean Corpuscular Hemoglobin 31.2H, Mean Corpuscular Hemoglobin Concent 34.3, Red Cell Distribution Width 12.9, Platelet Count 213, Mean Platelet Volume 6.8, Neutrophils (%) (Auto) 75.5H, Lymphocytes (%) (Auto) 15.5L, Monocytes (%) (Auto) 7.8, Eosinophils (%) (Auto) 0.4, Basophils (%) (Auto) 0.8 Height (Feet): 4 Height (Inches): 11.00 Weight (Pounds): 103 General Appearance: no apparent distress Objective No change Deepak Joseph MD Jul 18, 2020 12:52
--- NOTE | 2020-07-18 14:36 | General Progress Note ---
Subjective Allergies: Coded Allergies: NAPROXEN (Verified Allergy, Unknown, 07/10/20) Objective Last 24 Hour Vital Signs Date Time Temp Pulse Resp B/P (MAP) Pulse Ox O2 Delivery O2 Flow Rate FiO2 07/18/20 09:55 97 Nasal Cannula 3.0 32 07/18/20 09:00 Nasal Cannula 2.0 07/18/20 08:00 98.6 79 18 119/60 (79) 99 07/18/20 04:00 97.2 60 16 155/66 (95) 98 07/18/20 00:00 98.6 62 17 141/77 (98) 98 07/17/20 21:28 96 Nasal Cannula 3.0 32 07/17/20 21:00 Nasal Cannula 2.0 07/17/20 20:00 97.7 75 20 139/91 (107) 98 07/17/20 16:00 98.1 88 17 108/77 (87) 97 Intake and Output 07/17/20 07/18/20 19:00 07:00 Intake Total 940 ml 360 ml Output Total 400 ml Balance 940 ml -40 ml Intake Oral 840 ml IV Total 100 ml Other 360 ml Output Urine Total 400 ml # Voids 2 # Bowel Movements 1 1 Laboratory Tests 07/18/20 06:20: White Blood Count 7.8, Red Blood Count 4.04L, Hemoglobin 12.6, Hematocrit 36.7L, Mean Corpuscular Volume 91, Mean Corpuscular Hemoglobin 31.2H, Mean Corpuscular Hemoglobin Concent 34.3, Red Cell Distribution Width 12.9, Platelet Count 213, Mean Platelet Volume 6.8, Neutrophils (%) (Auto) 75.5H, Lymphocytes (%) (Auto) 15.5L, Monocytes (%) (Auto) 7.8, Eosinophils (%) (Auto) 0.4, Basophils (%) (Auto) 0.8 Height (Feet): 4 Height (Inches): 11.00 Weight (Pounds): 103 Assessment/Plan Assessment/Plan: S: I am in pain O: seems in moderate pain , pain well managed PHYSICAL EXAMINATION:HEAD AND NECK: Atraumatic and normocephalic. CHEST: Clear to auscultation.HEART: S1 and S2. Regular rate and rhythm. ABDOMEN: Soft. No organomegaly.MUSCULOSKELETAL: Diffuse deformity in all of her joints. Positive for stooped postures and pain in the thoracic area. NEUROLOGIC: The patient is awake, alert, and oriented x3 with incidence of delirious, iatrogenic secondary to narcotic pain medication. IMAGING: Spine CT dated July 10, reviewed shows compression fractures of T10, T12, and L1. LABORATORY DATA: Labs dated July 16 ASSESSMENT AND PLAN: 1. Mechanical fall and multiple thoracic spine compression deformity fractures in multiple ages. 2. UTI- Gr negative 3. Pain management. 4. Rheumatoid arthritis and severe debilitating arthritic disease. 5. Hypertension. 6. Anxiety and depression. 7. LGIBleed 7. GI and DVT prophylaxis. PLAN OF CARE: pain management ARU/SNIF placement Consult GI start IV- iron supplement SCD, stopped the Heparin products , will follow Jessica Covarrubias MD Jul 18, 2020 14:36
--- NOTE | 2020-07-18 15:14 | Infectious Diseases Prog Note ---
Assessment/Plan Assessment: Sepsis UTI- ?pyelo ( had n/v )( dysuria improving)- SP rx -u/a wbc 15-20, nit neg, leuk +2; ucx >100k p mirabilis ( R macrobid ; otherwise S) -Bcx NTD Afebrile Leukocytosis (on low dose prednisone but this is home med and no leukocytosis upon admission); SP -CXR: no acute disease Abd pain -?pancreatic mass -07/18 CT abd/p : Indeterminant cystic masses in the expected location of the severely atrophied pancreas, with unclear relationship to hypodense mass at the head of the pancreas. Neoplasm should be considered, and further evaluation with MRI/MRCP with contrast (pancreas protocol) is recommended. Distended and fluid- filled cervix, which is likely pathological for a woman of postmenopausal age. Recommend gynecologic evaluation and physical examination. Nonobstructing bilateral nephrolithiasis. Small left and trace right pleural effusions with associated airspace consolidation which likely represent worsening atelectasis but pneumonia should be excluded clinically. Marked colonic stool burden; clinical correlation for constipation is recommended. Multilevel thoracolumbar compression fractures, better evaluated on CT of the lumbar spine dated 07/10/2020. DIANNE, SP Nause/vomiting- SP Elevated LFTs, improving -Abd US: Negative for gallstones. However, there is mild gallbladder wall thickening. Possibility of acalculous acute cholecystitis should be considered Peripancreatic cysts versus possible varices. Splenic hilar vascular structure, could represent a hilar varix or splenic artery aneurysm. Consider contrast CT for further evaluation. Bilateral nonobstructive intrarenal calculi. Unusual fluid within the endocervical canal or vagina, favor the latter Back pain, sp fall- Compression fx T10, T12, L1 -CT L spine: Compression fractures of T10, T12, and L1. Given diffuse osteopenia is difficult to date the fractures, however, given subtle sclerotic appearance, suggest chronic fractures. Recommend correlation with exam for location of pain and point tenderness.Cortes catheter likely within the vaginal canal. Recommend repositioning. Additional chronic findings as above. COVID19 neg x 1 advanced RA HTN Anxiety disorder/MDD osteoporosis Plan: -Continue to monitor off abx -07/16 SP Ceftriaxone #4 -07/13 Sp Meropenem # 2 -07/12 Sp Ceftriaxone #3 -Monitor CBC/CMP, temperatures -discharge planning Thank you for this consultation. Will continue to follow along with you. Discussed with RN. Subjective Allergies: Coded Allergies: NAPROXEN (Verified Allergy, Unknown, 07/10/20) afebrile no leukocytosis Bcx NTD Objective Last 24 Hour Vital Signs Date Time Temp Pulse Resp B/P (MAP) Pulse Ox O2 Delivery O2 Flow Rate FiO2 07/18/20 12:00 97.4 76 18 121/71 (88) 98 07/18/20 09:55 97 Nasal Cannula 3.0 32 07/18/20 09:00 Nasal Cannula 2.0 07/18/20 08:00 98.6 79 18 119/60 (79) 99 07/18/20 04:00 97.2 60 16 155/66 (95) 98 07/18/20 00:00 98.6 62 17 141/77 (98) 98 07/17/20 21:28 96 Nasal Cannula 3.0 32 07/17/20 21:00 Nasal Cannula 2.0 07/17/20 20:00 97.7 75 20 139/91 (107) 98 07/17/20 16:00 98.1 88 17 108/77 (87) 97 Height (Feet): 4 Height (Inches): 11.00 Weight (Pounds): 103 HEAD AND NECK: Atraumatic and normocephalic. CHEST: Clear to auscultation. HEART: S1 and S2. Regular rate and rhythm. ABDOMEN: Soft. No organomegaly. Laboratory Tests Test 07/18/20 06:20 White Blood Count 7.8 K/UL (4.8-10.8) Red Blood Count 4.04 M/UL (4.20-5.40) L Hemoglobin 12.6 G/DL (12.0-16.0) Hematocrit 36.7 % (37.0-47.0) L Mean Corpuscular Volume 91 FL (80-99) Mean Corpuscular Hemoglobin 31.2 PG (27.0-31.0) H Mean Corpuscular Hemoglobin Concent 34.3 G/DL (32.0-36.0) Red Cell Distribution Width 12.9 % (11.6-14.8) Platelet Count 213 K/UL (150-450) Mean Platelet Volume 6.8 FL (6.5-10.1) Neutrophils (%) (Auto) 75.5 % (45.0-75.0) H Lymphocytes (%) (Auto) 15.5 % (20.0-45.0) L Monocytes (%) (Auto) 7.8 % (1.0-10.0) Eosinophils (%) (Auto) 0.4 % (0.0-3.0) Basophils (%) (Auto) 0.8 % (0.0-2.0) Current Medications Medications (Trade) Dose Ordered Sig/Jessica Route PRN Reason Start Time Stop Time Status Last Admin Dose Admin Acetaminophen (Tylenol) 650 mg Q6H PRN ORAL Mild Pain (Pain Scale 1-3) 07/12/20 09:15 08/11/20 09:14 Acetaminophen (Tylenol) 650 mg Q6H PRN ORAL Temp >100.5 07/12/20 09:15 08/11/20 09:14 Barium Sulfate (Readi-Cat 2) 450 ml NOW PRN ORAL Radiology Procedure 07/17/20 13:45 07/19/20 13:44 Calcitonin [place] (Miacalcin) 1 sprays DAILY NASAL 07/13/20 14:00 10/11/20 13:59 07/18/20 08:28 Calcium/Vitamin D (OsCal D) 1 tab DAILY ORAL 07/13/20 12:45 10/11/20 12:44 07/18/20 08:27 Docusate Sodium (Colace) 100 mg TID ORAL 07/11/20 18:00 08/10/20 01:44 07/18/20 08:27 Escitalopram Oxalate (Lexapro) 10 mg DAILY ORAL 07/11/20 09:00 08/10/20 08:59 07/18/20 08:28 Fentanyl (Duragesic) 1 patch Q72H TDERMAL 07/18/20 11:00 07/25/20 10:59 07/18/20 11:40 Fentanyl (Duragesic) 1 patch Q72H TDERMAL 07/18/20 11:00 07/25/20 10:59 07/18/20 11:41 Hydromorphone HCl (Dilaudid) 1 mg Q4H PRN SUBQ Severe Pain (Pain Scale 7-10) 07/18/20 11:09 07/25/20 11:08 07/18/20 12:24 Iohexol (OMNIPAQUE-300 100ml) 100 ml NOW PRN INJ Radiology Procedure 07/17/20 13:45 07/19/20 13:44 Magnesium Oxide (Mag-Ox 400mg) 400 mg THREE TIMES A DAY ORAL 07/18/20 13:00 08/17/20 12:59 Meloxicam (Mobic) 15 mg DAILY ORAL 07/17/20 09:00 08/16/20 08:59 Metoclopramide HCl (Reglan) 10 mg Q6H PRN IVP Nausea & Vomiting 07/11/20 01:45 08/10/20 01:44 07/18/20 08:23 Miscellaneous Medication (fentaNYL Destruction) 1 ea Q72H MISC 07/18/20 09:00 08/17/20 08:59 07/18/20 09:00 Naloxone HCl (Narcan) 0.1 mg PRN IV Sedation scale 3 or 4 07/12/20 09:00 08/17/20 08:59 Pantoprazole (Protonix) 40 mg BID ORAL 07/11/20 13:15 08/10/20 01:44 07/18/20 08:29 Patient Own Medication (Patient's Own Med) 1 ea DAILY ORAL 07/17/20 14:00 08/16/20 13:59 07/18/20 09:44 Polyethylene Glycol (Miralax) 17 gm QHS ORAL 07/11/20 21:00 08/10/20 20:59 07/16/20 21:51 Prednisone (predniSONE) 10 mg DAILY ORAL 07/11/20 09:00 08/10/20 08:59 07/18/20 08:28 Pushpa Tejeda M.D. Jul 18, 2020 15:14
[2020-07-18] MEDS: Magnesium Oxide 400mg tab ORAL SCH ×2 (15:15→17:27)
[2020-07-18 16:00] VITALS: BP 118/80
--- NOTE | 2020-07-18 16:21 | Surgery Progress Note ---
Surgery Progress Note Subjective Additional Comments no acute events dressings going well Objective Last 24 Hour Vital Signs Date Time Temp Pulse Resp B/P (MAP) Pulse Ox O2 Delivery O2 Flow Rate FiO2 07/18/20 16:00 97.5 74 16 118/80 (93) 98 07/18/20 12:00 97.4 76 18 121/71 (88) 98 07/18/20 09:55 97 Nasal Cannula 3.0 32 07/18/20 09:00 Nasal Cannula 2.0 07/18/20 08:00 98.6 79 18 119/60 (79) 99 07/18/20 04:00 97.2 60 16 155/66 (95) 98 07/18/20 00:00 98.6 62 17 141/77 (98) 98 07/17/20 21:28 96 Nasal Cannula 3.0 32 07/17/20 21:00 Nasal Cannula 2.0 07/17/20 20:00 97.7 75 20 139/91 (107) 98 I&O Intake and Output 07/17/20 07/18/20 19:00 07:00 Intake Total 940 ml 360 ml Output Total 400 ml Balance 940 ml -40 ml Intake Oral 840 ml IV Total 100 ml Other 360 ml Output Urine Total 400 ml # Voids 2 # Bowel Movements 1 1 Dressing: saturated Wound: clean Cardiovascular: RSR Respiratory: clear Abdomen: soft, non-tender, present bowel sounds Extremities: no edema, no tenderness, no cyanosis, pulses, other Laboratory Tests Test 07/18/20 06:20 White Blood Count 7.8 K/UL (4.8-10.8) Red Blood Count 4.04 M/UL (4.20-5.40) L Hemoglobin 12.6 G/DL (12.0-16.0) Hematocrit 36.7 % (37.0-47.0) L Mean Corpuscular Volume 91 FL (80-99) Mean Corpuscular Hemoglobin 31.2 PG (27.0-31.0) H Mean Corpuscular Hemoglobin Concent 34.3 G/DL (32.0-36.0) Red Cell Distribution Width 12.9 % (11.6-14.8) Platelet Count 213 K/UL (150-450) Mean Platelet Volume 6.8 FL (6.5-10.1) Neutrophils (%) (Auto) 75.5 % (45.0-75.0) H Lymphocytes (%) (Auto) 15.5 % (20.0-45.0) L Monocytes (%) (Auto) 7.8 % (1.0-10.0) Eosinophils (%) (Auto) 0.4 % (0.0-3.0) Basophils (%) (Auto) 0.8 % (0.0-2.0) Plan Problems: (1) Open wound, lower leg Assessment & Plan: Pt presented on admission with full thickness ulcer lateral L tibia(L)1.9cm x (W)2.2cm. Pt stated she bumped her leg against car few months ago and developed ulcer. Pt stated she also previously saw a Counter Supervisor in community. Base of wound is 100% fibrinous slough. Marginal erythema along borders. Small amt rubi coloured exudate.No odor noted. Hemosiderin deposits noted to bilat lower ext. R foot deformity with numerous historical surgical scars. Pt also presented on admission with saral erythema which has now resolved. Tx.Plan: Cleanse Wound Lateral R tibia with Saline. Apply Therahoney. Apply Maxsorb Extra . Apply Cavilon Skin Barrier Periwound. Cover with Optifoam drsg. Change Daily and prn. Elevate L leg with Pillow. Duplex US nutritional optimization will follow with recs thank you (2) Dehydration Assessment & Plan: Large vessels are seen around the pancreas. Gallbladder there is trace no gallstones. There is mild gallbladder wall thickening, gallbladder wall measuring 4 mm thick Sonographic Abdul's sign is negative. Common bile duct measures 6 mm in diameter. No intrahepatic biliary ductal dilatation. Liver demonstrates normal echogenicity, no focal abnormality. Portal vein and hepatic veins are patent. Pancreas is unremarkable although anechoic round structures are seen in the peripancreatic region. Spleen is unremarkable. However, a prominent vascular structures seen in the splenic hilum. Left kidney measures 9.9 cm in length. Right kidney measures 8 cm length. Both kidneys demonstrate normal echogenicity. There is no hydronephrosis. A calcification measuring 4 mm in diameter is seen in the renal sinus on the right. There is an 8 mm left lower pole calcification on the left. Bladder is nondistended, equivocally mildly thick-walled. Non-aneurysmal abdominal aorta . Unusual pelvic fluid appears to be within the vagina or less likely the endocervical canal Impression: Negative for gallstones. However, there is mild gallbladder wall thickening. Possibility of acalculous acute cholecystitis should be considered Peripancreatic cysts versus possible varices Splenic hilar vascular structure, could represent a hilar varix or splenic artery aneurysm. Consider contrast CT for further evaluation Bilateral nonobstructive intrarenal calculi Unusual fluid within the endocervical canal or vagina, favor the latter (3) DIANNE (acute kidney injury) (4) Electrolyte imbalance (5) UTI (urinary tract infection) (6) Compression fracture of lumbar vertebra (7) Compression fracture of thoracic vertebra (8) Intractable low back pain Tomas Brumfield Jul 18, 2020 16:21
--- NOTE | 2020-07-18 19:07 | General Progress Note ---
Progress Note Progress Note REHAB F/U PROGRESS NOTE: SUBJECTIVE: FOLLOWED BY GI REPEAT STOOL OB NEGATIVE ID FOLLOWING AT BED +/- ABD PAIN PER PT>>Rolling * Independent * Supervision Supine to Sit * Stand By Assistance * Supervision Bed Mobility Assistive Devices * Bed Rail Sit to Stand * Stand By Assistance * Supervision Bed to Chair/Wheelchair * Stand By Assistance Transfer assistive devices * Front wheel walker Patient complains of pain * Yes Pain Comment (Include location & description) * across mid abdominal area Gait Training: Total Time * 15 Gait Training: Number of Units * 1 Precautions * Fall Precautions Weight Bearing Assessment Label * Bilateral lower extremity * Weight Bearing Status Full weight bearing Distance * 180 ft REVIEW OF SYSTEMS: EYES: Denies diplopia. ENT: Denies dysphagia. CARDIOVASCULAR: No chest pain. PULMONARY: No short of breath. GASTROINTESTINAL: abdominal pain. GENIT OURINARY: No dysuria. MUSCULOSKELETAL: Multiple pain. Acute on chronic pain syndrome. NEUROLOGIC: Generalized weakness. PHYSICAL EXAMINATION: VITAL SIGNS: PER CHART, NOTED. HEENT: No facial droop. NECK: Supple HEART: Regular. LUNGS: Clear to auscultation bilateral. ABDOMEN: Soft. No distention. Positive bowel sounds. EXTREMITIES: Multiple deformities of hands especially and wrists. Area of bilateral knee surgery old heal noted. ulcer on lower extremity BACK: Tenderness of the thoracic and lumbar spine. NEUROLOGIC: Patient is alert and awake. She is oriented to place. Movement of bilateral upper and lower limbs somewhere between 3- to 3+/5. DATA: PER CHART, NOTED. ASSESSMENT: A 65-year-old female with 1. Thoracic and lumbar spine compression fracture/T10, T12, and L1 compression fracture. 2. Abdominal pain with elevated lipase level and abdominal ultrasound with possible report with acute cholecystitis. 3. Leukocytosis. 4. Transaminitis. 5. Urinary tract infection. 6. Chronic pain syndrome and narcotic dependency. 7. Acute on chronic pain syndrome. 8. Back pain. 9. Rheumatoid arthritis since age of 2 with multiple deformities and history of multiple surgeries including bilateral knees, wrists, and hip. 10. Debility and functional decline. 11. Gait abnormality. POSITIVE STOOL OB DEPRESSION LOWER LIMB ULCER UTI >> URINE CULTURE Final Organism 1 PROTEUS MIRABILIS COLONY COUNT: >100,000 CFU/ML PRO MIRABI M.I.C. RX --------- --- AMPICILLIN <=2 S CEFAZOLIN <=4 S CEFTAZIDIME <=1 S CEFTRIAXONE <=1 S CEFEPIME <=1 S GENTAMICIN <=1 S LEVOFLOXACIN <=0.12 S * MEROPENEM <=0.25 S NITROFURANTOIN 128 R TRIMETHOPRIM/SULFA <=20 S PIPERACILLIN/TAZOBACTAM <=4 S RECOMMENDATION: 24 hours nursing care. Physical therapy for range of motion, transfer training, endurance, balance and gait training, fall prevention with appropriate assistive device. Occupational therapy for activities of daily living, equipment function, transfer evaluation and training, upper extremity range of motion and strengthening exercise. 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 Fall precaution, pressure ulcer precaution, cardiac precaution. Continue medical management per Medicine. Incentive spirometry. Nutritional support. acute inpatient rehabilitation placement when patient is medically stable and clear pending insurance authorization. SOFT THORACOLUMBAR CORSET (TLSO) ABD PAIN >> PER PMD PSYCH F/U CARE ABX PER ID CALCITONIN NASAL SPRAY QD, ALT NOSTRILS CA-VIT D PO QD IRON IV >> COMPLETED 5 DOSES FENTANYL PATCH WOUND CARE > PER SURGEON AND WOUND CARE TEAM ARU PLACEMENT >> PENDING INSURANCE AUTH GI W/U F/U. >> ABD / PELVIS CT >> GI F/U Jayme Randall MD Jul 18, 2020 19:07
[2020-07-18 20:00] VITALS: BP 121/74
[2020-07-18] MEDS: Miralax 17gm pkt ORAL SCH ×2 (20:37→20:40)
[2020-07-19] VITALS: BP 120/76
[2020-07-19] MEDS: HYDROmorphone 1mg/ml Carpuject SUBQ PRN ×6 (00:48→21:50)
[2020-07-19 04:00] VITALS: BP 139/78
[2020-07-19 06:49] LABS: BASOPHILS % (AUTO) 0.8 % (0.0-2.0); EOSINOPHILS % (AUTO) 0.1 % (0.0-3.0); HEMATOCRIT 34.5 % (37.0-47.0); HEMOGLOBIN 11.4 G/DL (12.0-16.0); LYMPHOCYTES % (AUTO) 14.7 % (20.0-45.0); MEAN CORPUSCULAR VOLUME 93 FL (80-99); MONOCYTES % (AUTO) 6.7 % (1.0-10.0); NEUTROPHILS % (AUTO) 77.7 % (45.0-75.0); PLATELET COUNT 236 K/UL (150-450); WHITE BLOOD COUNT 7.1 K/UL (4.8-10.8)
[2020-07-19 07:44] LABS: ALANINE AMINOTRANSFERASE 14 U/L (12-78); ALBUMIN 2.5 G/DL (3.4-5.0); ALBUMIN/GLOBULIN RATIO 0.9 (1.0-2.7); ALKALINE PHOSPHATASE 65 U/L (46-116); ANION GAP 6 mmol/L (5-15); ASPARTATE AMINO TRANSFERASE 16 U/L (15-37); BILIRUBIN,TOTAL 0.3 MG/DL (0.2-1.0); BLOOD UREA NITROGEN 9 mg/dL (7-18); CARBON DIOXIDE 28 MMOL/L (21-32); CHLORIDE 102 MMOL/L (98-107); CREATININE 0.8 MG/DL (0.55-1.30); POTASSIUM 3.6 MMOL/L (3.5-5.1); SODIUM 136 MMOL/L (136-145)
[2020-07-19 08:00] VITALS: BP 122/69
[2020-07-19 08:00] LABS: PHOSPHORUS 2.5 MG/DL (2.5-4.9)
[2020-07-19] MEDS: Meloxicam 15 MG TAB ORAL SCH (09:00)
[2020-07-19] MEDS: Docusate 100mg cap ORAL SCH ×3 (09:00→17:19)
[2020-07-19] MEDS: Metoclopramide 10mg/2ml Inj IVP PRN (09:14)
[2020-07-19] MEDS: Calcium Carbonate 500mg w/Vit D 200iu tab ORAL SCH (09:17)
[2020-07-19] MEDS: Magnesium Oxide 400mg tab ORAL SCH ×3 (09:18→17:23)
[2020-07-19] MEDS: RINVOQ 15 MG ORAL SCH (09:22)
--- NOTE | 2020-07-19 09:45 | General Progress Note ---
Subjective Date patient seen: Jul 19, 2020 Time patient seen: 09:00 - am Allergies: Coded Allergies: NAPROXEN (Verified Allergy, Unknown, 07/10/20) Subjective REVIEW OF SYSTEMS: Denies rash, fever, chills, sweating, dizziness, drowsiness, blurred vision, sore throat, or change in weight. No shortness of breath or chest pain. No nausea, vomiting, diarrhea, or blood in the stool or urine. No dysuria. HISTORY OF PRESENT ILLNESS: This is a 65-year-old female who is being seen on the Med/Surg floor of [facility]. Patient reports pain has been unchanged and is tolerated on the Fentanyl patch and Dilaudid. No new complaints at this time. Objective Last 24 Hour Vital Signs Date Time Temp Pulse Resp B/P (MAP) Pulse Ox O2 Delivery O2 Flow Rate FiO2 07/19/20 08:00 98.1 86 19 122/69 (86) 93 07/19/20 04:00 97.9 68 18 139/78 (98) 99 07/19/20 00:00 98.2 70 18 120/76 (91) 98 07/18/20 21:00 Nasal Cannula 2.0 07/18/20 20:00 99.1 72 18 121/74 (90) 98 07/18/20 20:00 98 Nasal Cannula 2.0 28 07/18/20 16:00 97.5 74 16 118/80 (93) 98 07/18/20 12:00 97.4 76 18 121/71 (88) 98 07/18/20 09:55 97 Nasal Cannula 3.0 32 Intake and Output 07/18/20 07/19/20 19:00 07:00 Intake Total 600 ml 240 ml Output Total 200 ml Balance 400 ml 240 ml Intake Oral 600 ml 240 ml Output Urine Total 200 ml # Bowel Movements 2 1 Laboratory Tests 07/19/20 06:00: White Blood Count 7.1, Red Blood Count 3.70L, Hemoglobin 11.4L, Hematocrit 34.5L , Mean Corpuscular Volume 93, Mean Corpuscular Hemoglobin 30.9, Mean Corpuscular Hemoglobin Concent 33.2, Red Cell Distribution Width 13.0, Platelet Count 236, Mean Platelet Volume 6.3L, Neutrophils (%) (Auto) 77.7H, Lymphocytes (%) (Auto) 14.7L, Monocytes (%) (Auto) 6.7, Eosinophils (%) (Auto) 0.1, Basophils (%) (Auto) 0.8, Sodium Level 136, Potassium Level 3.6, Chloride Level 102, Carbon Dioxide Level 28, Anion Gap 6, Blood Urea Nitrogen 9, Creatinine 0.8, Estimat Glomerular Filtration Rate > 60, Glucose Level 104, Calcium Level 8.0L, Phosphorus Level 2.5, Magnesium Level 1.9, Total Bilirubin 0.3, Aspartate Amino Transf (AST/SGOT) 16, Alanine Aminotransferase (ALT/SGPT) 14, Alkaline Phosphatase 65, Total Protein 5.2L, Albumin 2.5L, Globulin 2.7, Albumin/Globulin Ratio 0.9L Height (Feet): 4 Height (Inches): 11.00 Weight (Pounds): 103 Objective PHYSICAL EXAMINATION: GENERAL: Alert, awake, and oriented. LUNGS: Decreased breath sounds bilaterally. HEART: S1 and S2 regular. ABDOMEN: Tenderness to palpation. EXTREMITIES: No cyanosis. No clubbing. No edema. NEURO: No changes. Assessment/Plan Assessment/Plan: (1) Lumbar DDD/Spondylosis (2) Thoracic compression fractures (3) Rheumatoid arthritis (4) Multiple joint pain (5) Abdominal pain We will continue Dilaudid and Fentanyl patch D/w Dr. Hung and concurred. David Morris Jul 19, 2020 09:45
[2020-07-19] MEDS ORDERED: Gadavist 7.5mMol/7.5ml vial IV PRN (10:45)
--- NOTE | 2020-07-19 10:47 | General Progress Note ---
Subjective ROS Limited/Unobtainable: No Allergies: Coded Allergies: NAPROXEN (Verified Allergy, Unknown, 07/10/20) Objective Last 24 Hour Vital Signs Date Time Temp Pulse Resp B/P (MAP) Pulse Ox O2 Delivery O2 Flow Rate FiO2 07/19/20 08:00 98.1 86 19 122/69 (86) 93 07/19/20 04:00 97.9 68 18 139/78 (98) 99 07/19/20 00:00 98.2 70 18 120/76 (91) 98 07/18/20 21:00 Nasal Cannula 2.0 07/18/20 20:00 99.1 72 18 121/74 (90) 98 07/18/20 20:00 98 Nasal Cannula 2.0 28 07/18/20 16:00 97.5 74 16 118/80 (93) 98 07/18/20 12:00 97.4 76 18 121/71 (88) 98 Intake and Output 07/18/20 07/19/20 19:00 07:00 Intake Total 600 ml 240 ml Output Total 200 ml Balance 400 ml 240 ml Intake Oral 600 ml 240 ml Output Urine Total 200 ml # Bowel Movements 2 1 Laboratory Tests 07/19/20 06:00: White Blood Count 7.1, Red Blood Count 3.70L, Hemoglobin 11.4L, Hematocrit 34.5L , Mean Corpuscular Volume 93, Mean Corpuscular Hemoglobin 30.9, Mean Corpuscular Hemoglobin Concent 33.2, Red Cell Distribution Width 13.0, Platelet Count 236, Mean Platelet Volume 6.3L, Neutrophils (%) (Auto) 77.7H, Lymphocytes (%) (Auto) 14.7L, Monocytes (%) (Auto) 6.7, Eosinophils (%) (Auto) 0.1, Basophils (%) (Auto) 0.8, Sodium Level 136, Potassium Level 3.6, Chloride Level 102, Carbon Dioxide Level 28, Anion Gap 6, Blood Urea Nitrogen 9, Creatinine 0.8, Estimat Glomerular Filtration Rate > 60, Glucose Level 104, Calcium Level 8.0L, Phosphorus Level 2.5, Magnesium Level 1.9, Total Bilirubin 0.3, Aspartate Amino Transf (AST/SGOT) 16, Alanine Aminotransferase (ALT/SGPT) 14, Alkaline Phosphatase 65, Total Protein 5.2L, Albumin 2.5L, Globulin 2.7, Albumin/Globulin Ratio 0.9L Height (Feet): 4 Height (Inches): 11.00 Weight (Pounds): 103 General Appearance: no apparent distress EENT: normal ENT inspection Neck: supple Cardiovascular: normal rate Respiratory/Chest: decreased breath sounds Abdomen: hypoactive bowel sounds Extremities: non-tender Assessment/Plan Problem List: (1) Intractable low back pain ICD Codes: M54.5 - Low back pain SNOMED: 02107497811210263 (2) Compression fracture of thoracic vertebra ICD Codes: S22.000A - Wedge compression fracture of unspecified thoracic vertebra, initial encounter for closed fracture SNOMED: 515605768 Qualifiers: Qualified Codes: S22.000A - Wedge compression fracture of unspecified thoracic vertebra, initial encounter for closed fracture (3) UTI (urinary tract infection) ICD Codes: N39.0 - Urinary tract infection, site not specified SNOMED: 75545689 Qualifiers: Qualified Codes: N30.00 - Acute cystitis without hematuria Assessment/Plan: Anemia stool ob positive X1 abd pain ? peripancreatic cyst on iv iron stable H&H on ppi repeat stool ob ABD CT>> reviewed>>> ordered MRI CA 19-9 may need EUS next week pain control Yosi Anderson MD Jul 19, 2020 10:47
--- NOTE | 2020-07-19 11:03 | Nephrology Progress Note ---
Assessment/Plan Problem List: (1) DIANNE (acute kidney injury) (2) Dehydration (3) Electrolyte imbalance (4) UTI (urinary tract infection) Assessment Renal failure, likely dehydration UTI Electrolyte abnormalities Elevated liver function tests History of rheumatoid arthritis Plan July 19: Labs reviewed. Renal parameters are stable. Vitamin D level normal. July 18: Magnesium supplement ordered. Renal parameters are stable. Vitamin D level pending. July 17: Magnesium supplement ordered. Renal parameters stable. Vitamin D level pending. July 16: Labs reviewed. Serum calcium higher. Low potassium replaced. Waiting for vitamin D level. Continue rest. July 15: Labs reviewed. Serum calcium higher. Low magnesium replaced. Continue per consultants. Vitamin D level results pending. July 14: Labs reviewed. Serum calcium is low. Medication reviewed. Patient on nasal calcitonin. Will obtain vitamin D level. Continue oral vitamin the supplement. Potassium phosphorus IV supplement ordered. Continue to monitor electrolyte and chemistries. Per orders. July 13: Potassium phosphate IV ordered. IV fluid discontinued. Patient tolerating p.o. Serum creatinine baseline. Continue to monitor electrolytes. Continue per consultants. Previously: Stop meloxicam Stop lisinopril Protonix twice daily Monitor renal parameters Avoid nephrotoxic's Urine studies Slow hydration Per orders Subjective ROS Limited/Unobtainable: No Constitutional: Reports: malaise Objective Objective Last 24 Hour Vital Signs Date Time Temp Pulse Resp B/P (MAP) Pulse Ox O2 Delivery O2 Flow Rate FiO2 07/19/20 09:00 Nasal Cannula 2.0 07/19/20 08:00 98.1 86 19 122/69 (86) 93 07/19/20 04:00 97.9 68 18 139/78 (98) 99 07/19/20 00:00 98.2 70 18 120/76 (91) 98 07/18/20 21:00 Nasal Cannula 2.0 07/18/20 20:00 99.1 72 18 121/74 (90) 98 07/18/20 20:00 98 Nasal Cannula 2.0 28 07/18/20 16:00 97.5 74 16 118/80 (93) 98 07/18/20 12:00 97.4 76 18 121/71 (88) 98 Intake and Output 07/18/20 07/19/20 19:00 07:00 Intake Total 600 ml 240 ml Output Total 200 ml Balance 400 ml 240 ml Intake Oral 600 ml 240 ml Output Urine Total 200 ml # Bowel Movements 2 1 Current Medications Medications (Trade) Dose Ordered Sig/Jessica Route PRN Reason Start Time Stop Time Status Last Admin Dose Admin Acetaminophen (Tylenol) 650 mg Q6H PRN ORAL Mild Pain (Pain Scale 1-3) 07/12/20 09:15 08/11/20 09:14 Acetaminophen (Tylenol) 650 mg Q6H PRN ORAL Temp >100.5 07/12/20 09:15 08/11/20 09:14 Barium Sulfate (Readi-Cat 2) 450 ml NOW PRN ORAL Radiology Procedure 07/17/20 13:45 07/19/20 13:44 Calcitonin Daphne (Miacalcin) 1 sprays DAILY NASAL 07/13/20 14:00 10/11/20 13:59 07/19/20 09:22 Calcium/Vitamin D (OsCal D) 1 tab DAILY ORAL 07/13/20 12:45 10/11/20 12:44 07/19/20 09:17 Docusate Sodium (Colace) 100 mg TID ORAL 07/11/20 18:00 08/10/20 01:44 07/18/20 08:27 Escitalopram Oxalate (Lexapro) 10 mg DAILY ORAL 07/11/20 09:00 08/10/20 08:59 07/19/20 09:17 Fentanyl (Duragesic) 1 patch Q72H TDERMAL 07/18/20 11:00 07/25/20 10:59 07/18/20 11:40 Fentanyl (Duragesic) 1 patch Q72H TDERMAL 07/18/20 11:00 07/25/20 10:59 07/18/20 11:41 Gadobutrol (Gadavist) 7.5 mmol NOW PRN IV Radiology Procedure 07/19/20 10:45 07/23/20 10:44 Hydromorphone HCl (Dilaudid) 1 mg Q4H PRN SUBQ Severe Pain (Pain Scale 7-10) 07/18/20 11:09 07/25/20 11:08 07/19/20 09:14 Iohexol (OMNIPAQUE-300 100ml) 100 ml NOW PRN INJ Radiology Procedure 07/17/20 13:45 07/19/20 13:44 Magnesium Oxide (Mag-Ox 400mg) 400 mg THREE TIMES A DAY ORAL 07/18/20 13:00 08/17/20 12:59 07/19/20 09:18 Meloxicam (Mobic) 15 mg DAILY ORAL 07/17/20 09:00 08/16/20 08:59 Metoclopramide HCl (Reglan) 10 mg Q6H PRN IVP Nausea & Vomiting 07/11/20 01:45 08/10/20 01:44 07/19/20 09:14 Miscellaneous Medication (fentaNYL Destruction) 1 ea Q72H MISC 07/18/20 09:00 08/17/20 08:59 07/18/20 09:00 Naloxone HCl (Narcan) 0.1 mg PRN IV Sedation scale 3 or 4 07/12/20 09:00 08/17/20 08:59 Pantoprazole (Protonix) 40 mg BID ORAL 07/11/20 13:15 08/10/20 01:44 07/19/20 09:17 Patient Own Medication (Patient's Own Med) 1 ea DAILY ORAL 07/17/20 14:00 08/16/20 13:59 07/19/20 09:22 Polyethylene Glycol (Miralax) 17 gm QHS ORAL 07/11/20 21:00 08/10/20 20:59 07/16/20 21:51 Prednisone (predniSONE) 10 mg DAILY ORAL 07/11/20 09:00 08/10/20 08:59 07/19/20 09:18 Laboratory Tests 07/19/20 06:00: White Blood Count 7.1, Red Blood Count 3.70L, Hemoglobin 11.4L, Hematocrit 34.5L , Mean Corpuscular Volume 93, Mean Corpuscular Hemoglobin 30.9, Mean Corpuscular Hemoglobin Concent 33.2, Red Cell Distribution Width 13.0, Platelet Count 236, Mean Platelet Volume 6.3L, Neutrophils (%) (Auto) 77.7H, Lymphocytes (%) (Auto) 14.7L, Monocytes (%) (Auto) 6.7, Eosinophils (%) (Auto) 0.1, Basophils (%) (Auto) 0.8, Sodium Level 136, Potassium Level 3.6, Chloride Level 102, Carbon Dioxide Level 28, Anion Gap 6, Blood Urea Nitrogen 9, Creatinine 0.8, Estimat Glomerular Filtration Rate > 60, Glucose Level 104, Calcium Level 8.0L, Phosphorus Level 2.5, Magnesium Level 1.9, Total Bilirubin 0.3, Aspartate Amino Transf (AST/SGOT) 16, Alanine Aminotransferase (ALT/SGPT) 14, Alkaline Phosphatase 65, Total Protein 5.2L, Albumin 2.5L, Globulin 2.7, Albumin/Globulin Ratio 0.9L Height (Feet): 4 Height (Inches): 11.00 Weight (Pounds): 103 General Appearance: no apparent distress Cardiovascular: normal rate Respiratory/Chest: lungs clear Abdomen: soft Objective No change Deepak Joseph MD Jul 19, 2020 11:03
[2020-07-19 12:00] VITALS: BP 125/81
--- NOTE | 2020-07-19 13:29 | Surgery Progress Note ---
Surgery Progress Note Subjective Symptoms: improved, tolerating diet, passing flatus, BM Objective Last 24 Hour Vital Signs Date Time Temp Pulse Resp B/P (MAP) Pulse Ox O2 Delivery O2 Flow Rate FiO2 07/19/20 12:00 98.6 86 17 125/81 (96) 98 07/19/20 09:00 Nasal Cannula 2.0 07/19/20 08:00 98.1 86 19 122/69 (86) 93 07/19/20 04:00 97.9 68 18 139/78 (98) 99 07/19/20 00:00 98.2 70 18 120/76 (91) 98 07/18/20 21:00 Nasal Cannula 2.0 07/18/20 20:00 99.1 72 18 121/74 (90) 98 07/18/20 20:00 98 Nasal Cannula 2.0 28 07/18/20 16:00 97.5 74 16 118/80 (93) 98 I&O Intake and Output 07/18/20 07/19/20 19:00 07:00 Intake Total 600 ml 240 ml Output Total 200 ml Balance 400 ml 240 ml Intake Oral 600 ml 240 ml Output Urine Total 200 ml # Bowel Movements 2 1 Dressing: dry Wound: clean Cardiovascular: RSR Respiratory: clear Abdomen: soft, non-tender, present bowel sounds Extremities: no edema, no tenderness, no cyanosis, other Laboratory Tests Test 07/19/20 06:00 White Blood Count 7.1 K/UL (4.8-10.8) Red Blood Count 3.70 M/UL (4.20-5.40) L Hemoglobin 11.4 G/DL (12.0-16.0) L Hematocrit 34.5 % (37.0-47.0) L Mean Corpuscular Volume 93 FL (80-99) Mean Corpuscular Hemoglobin 30.9 PG (27.0-31.0) Mean Corpuscular Hemoglobin Concent 33.2 G/DL (32.0-36.0) Red Cell Distribution Width 13.0 % (11.6-14.8) Platelet Count 236 K/UL (150-450) Mean Platelet Volume 6.3 FL (6.5-10.1) L Neutrophils (%) (Auto) 77.7 % (45.0-75.0) H Lymphocytes (%) (Auto) 14.7 % (20.0-45.0) L Monocytes (%) (Auto) 6.7 % (1.0-10.0) Eosinophils (%) (Auto) 0.1 % (0.0-3.0) Basophils (%) (Auto) 0.8 % (0.0-2.0) Sodium Level 136 MMOL/L (136-145) Potassium Level 3.6 MMOL/L (3.5-5.1) Chloride Level 102 MMOL/L (98-107) Carbon Dioxide Level 28 MMOL/L (21-32) Anion Gap 6 mmol/L (5-15) Blood Urea Nitrogen 9 mg/dL (7-18) Creatinine 0.8 MG/DL (0.55-1.30) Estimat Glomerular Filtration Rate > 60 mL/min (>60) Glucose Level 104 MG/DL (74-106) Calcium Level 8.0 MG/DL (8.5-10.1) L Phosphorus Level 2.5 MG/DL (2.5-4.9) Magnesium Level 1.9 MG/DL (1.8-2.4) Total Bilirubin 0.3 MG/DL (0.2-1.0) Aspartate Amino Transf (AST/SGOT) 16 U/L (15-37) Alanine Aminotransferase (ALT/SGPT) 14 U/L (12-78) Alkaline Phosphatase 65 U/L (46-116) Total Protein 5.2 G/DL (6.4-8.2) L Albumin 2.5 G/DL (3.4-5.0) L Globulin 2.7 g/dL Albumin/Globulin Ratio 0.9 (1.0-2.7) L Plan Problems: (1) Open wound, lower leg Assessment & Plan: Pt presented on admission with full thickness ulcer lateral L tibia(L)1.9cm x (W)2.2cm. Pt stated she bumped her leg against car few months ago and developed ulcer. Pt stated she also previously saw a Desk Lieutenant in community. Base of wound is 100% fibrinous slough. Marginal erythema along borders. Small amt rubi coloured exudate.No odor noted. Hemosiderin deposits noted to bilat lower ext. R foot deformity with numerous historical surgical scars. Pt also presented on admission with saral erythema which has now resolved. Tx.Plan: Cleanse Wound Lateral R tibia with Saline. Apply Therahoney. Apply Maxsorb Extra . Apply Cavilon Skin Barrier Periwound. Cover with Optifoam drsg. Change Daily and prn. Elevate L leg with Pillow. Duplex US nutritional optimization will follow with recs thank you (2) Dehydration Assessment & Plan: Large vessels are seen around the pancreas. Gallbladder there is trace no gallstones. There is mild gallbladder wall thickening, gallbladder wall me asuring 4 mm thick Sonographic Abdul's sign is negative. Common bile duct measures 6 mm in diameter. No intrahepatic biliary ductal dilatation. Liver demonstrates normal echogenicity, no focal abnormality. Portal vein and hepatic veins are patent. Pancreas is unremarkable although anechoic round structures are seen in the peripancreatic region. Spleen is unremarkable. However, a prominent vascular structures seen in the splenic hilum. Left kidney measures 9.9 cm in length. Right kidney measures 8 cm length. Both kidneys demonstrate normal echogenicity. There is no hydronephrosis. A calcification measuring 4 mm in diameter is seen in the renal sinus on the right. There is an 8 mm left lower pole calcification on the left. Bladder is nondistended, equivocally mildly thick-walled. Non-aneurysmal abdominal aorta . Unusual pelvic fluid appears to be within the vagina or less likely the endocervical canal Impression: Negative for gallstones. However, there is mild gallbladder wall thickening. Possibility of acalculous acute cholecystitis should be considered Peripancreatic cysts versus possible varices Splenic hilar vascular structure, could represent a hilar varix or splenic artery aneurysm. Consider contrast CT for further evaluation Bilateral nonobstructive intrarenal calculi Unusual fluid within the endocervical canal or vagina, favor the latter (3) DIANNE (acute kidney injury) (4) Electrolyte imbalance (5) UTI (urinary tract infection) (6) Compression fracture of lumbar vertebra (7) Compression fracture of thoracic vertebra (8) Intractable low back pain Tomas Brumfield Jul 19, 2020 13:29
--- NOTE | 2020-07-19 13:39 | Infectious Diseases Prog Note ---
Assessment/Plan Assessment: Sepsis UTI- ?pyelo ( had n/v )( dysuria improving)- SP rx -u/a wbc 15-20, nit neg, leuk +2; ucx >100k p mirabilis ( R macrobid ; otherwise S) -Bcx NTD Afebrile Leukocytosis (on low dose prednisone but this is home med and no leukocytosis upon admission); SP -CXR: no acute disease Abd pain -?pancreatic mass -07/18 CT abd/p : Indeterminant cystic masses in the expected location of the severely atrophied pancreas, with unclear relationship to hypodense mass at the head of the pancreas. Neoplasm should be considered, and further evaluation with MRI/MRCP with contrast (pancreas protocol) is recommended. Distended and fluid- filled cervix, which is likely pathological for a woman of postmenopausal age. Recommend gynecologic evaluation and physical examination. Nonobstructing bilateral nephrolithiasis. Small left and trace right pleural effusions with associated airspace consolidation which likely represent worsening atelectasis but pneumonia should be excluded clinically. Marked colonic stool burden; clinical correlation for constipation is recommended. Multilevel thoracolumbar compression fractures, better evaluated on CT of the lumbar spine dated 07/10/2020. DIANNE, SP Nause/vomiting- SP Elevated LFTs, improving -Abd US: Negative for gallstones. However, there is mild gallbladder wall thickening. Possibility of acalculous acute cholecystitis should be considered Peripancreatic cysts versus possible varices. Splenic hilar vascular structure, could represent a hilar varix or splenic artery aneurysm. Consider contrast CT for further evaluation. Bilateral nonobstructive intrarenal calculi. Unusual fluid within the endocervical canal or vagina, favor the latter Back pain, sp fall- Compression fx T10, T12, L1 -CT L spine: Compression fractures of T10, T12, and L1. Given diffuse osteopenia is difficult to date the fractures, however, given subtle sclerotic appearance, suggest chronic fractures. Recommend correlation with exam for location of pain and point tenderness.Cortes catheter likely within the vaginal canal. Recommend repositioning. Additional chronic findings as above. COVID19 neg x 1 advanced RA HTN Anxiety disorder/MDD osteoporosis Plan: -Continue to monitor off abx -07/16 SP Ceftriaxone #4 -07/13 Sp Meropenem # 2 -07/12 Sp Ceftriaxone #3 -Monitor CBC/CMP, temperatures -discharge planning Thank you for this consultation. Will continue to follow along with you. Discussed with RN. Subjective Allergies: Coded Allergies: NAPROXEN (Verified Allergy, Unknown, 07/10/20) afebrile no leukocytosis Bcx NTD Objective Last 24 Hour Vital Signs Date Time Temp Pulse Resp B/P (MAP) Pulse Ox O2 Delivery O2 Flow Rate FiO2 07/19/20 12:00 98.6 86 17 125/81 (96) 98 07/19/20 09:00 Nasal Cannula 2.0 07/19/20 08:00 98.1 86 19 122/69 (86) 93 07/19/20 04:00 97.9 68 18 139/78 (98) 99 07/19/20 00:00 98.2 70 18 120/76 (91) 98 07/18/20 21:00 Nasal Cannula 2.0 07/18/20 20:00 99.1 72 18 121/74 (90) 98 07/18/20 20:00 98 Nasal Cannula 2.0 28 07/18/20 16:00 97.5 74 16 118/80 (93) 98 Height (Feet): 4 Height (Inches): 11.00 Weight (Pounds): 103 HEAD AND NECK: Atraumatic and normocephalic. CHEST: Clear to auscultation. HEART: S1 and S2. Regular rate and rhythm. ABDOMEN: Soft. No organomegaly. Laboratory Tests Test 07/19/20 06:00 White Blood Count 7.1 K/UL (4.8-10.8) Red Blood Count 3.70 M/UL (4.20-5.40) L Hemoglobin 11.4 G/DL (12.0-16.0) L Hematocrit 34.5 % (37.0-47.0) L Mean Corpuscular Volume 93 FL (80-99) Mean Corpuscular Hemoglobin 30.9 PG (27.0-31.0) Mean Corpuscular Hemoglobin Concent 33.2 G/DL (32.0-36.0) Red Cell Distribution Width 13.0 % (11.6-14.8) Platelet Count 236 K/UL (150-450) Mean Platelet Volume 6.3 FL (6.5-10.1) L Neutrophils (%) (Auto) 77.7 % (45.0-75.0) H Lymphocytes (%) (Auto) 14.7 % (20.0-45.0) L Monocytes (%) (Auto) 6.7 % (1.0-10.0) Eosinophils (%) (Auto) 0.1 % (0.0-3.0) Basophils (%) (Auto) 0.8 % (0.0-2.0) Sodium Level 136 MMOL/L (136-145) Potassium Level 3.6 MMOL/L (3.5-5.1) Chloride Level 102 MMOL/L (98-107) Carbon Dioxide Level 28 MMOL/L (21-32) Anion Gap 6 mmol/L (5-15) Blood Urea Nitrogen 9 mg/dL (7-18) Creatinine 0.8 MG/DL (0.55-1.30) Estimat Glomerular Filtration Rate > 60 mL/min (>60) Glucose Level 104 MG/DL (74-106) Calcium Level 8.0 MG/DL (8.5-10.1) L Phosphorus Level 2.5 MG/DL (2.5-4.9) Magnesium Level 1.9 MG/DL (1.8-2.4) Total Bilirubin 0.3 MG/DL (0.2-1.0) Aspartate Amino Transf (AST/SGOT) 16 U/L (15-37) Alanine Aminotransferase (ALT/SGPT) 14 U/L (12-78) Alkaline Phosphatase 65 U/L (46-116) Total Protein 5.2 G/DL (6.4-8.2) L Albumin 2.5 G/DL (3.4-5.0) L Globulin 2.7 g/dL Albumin/Globulin Ratio 0.9 (1.0-2.7) L Current Medications Medications (Trade) Dose Ordered Sig/Jessica Route PRN Reason Start Time Stop Time Status Last Admin Dose Admin Acetaminophen (Tylenol) 650 mg Q6H PRN ORAL Mild Pain (Pain Scale 1-3) 07/12/20 09:15 08/11/20 09:14 Acetaminophen (Tylenol) 650 mg Q6H PRN ORAL Temp >100.5 07/12/20 09:15 08/11/20 09:14 Barium Sulfate (Readi-Cat 2) 450 ml NOW PRN ORAL Radiology Procedure 07/17/20 13:45 07/19/20 13:44 Calcitonin [place] (Miacalcin) 1 sprays DAILY NASAL 07/13/20 14:00 10/11/20 13:59 07/19/20 09:22 Calcium/Vitamin D (OsCal D) 1 tab DAILY ORAL 07/13/20 12:45 10/11/20 12:44 07/19/20 09:17 Docusate Sodium (Colace) 100 mg TID ORAL 07/11/20 18:00 08/10/20 01:44 07/18/20 08:27 Escitalopram Oxalate (Lexapro) 10 mg DAILY ORAL 07/11/20 09:00 08/10/20 08:59 07/19/20 09:17 Fentanyl (Duragesic) 1 patch Q72H TDERMAL 07/18/20 11:00 07/25/20 10:59 07/18/20 11:40 Fentanyl (Duragesic) 1 patch Q72H TDERMAL 07/18/20 11:00 07/25/20 10:59 07/18/20 11:41 Gadobutrol (Gadavist) 7.5 mmol NOW PRN IV Radiology Procedure 07/19/20 10:45 07/23/20 10:44 Hydromorphone HCl (Dilaudid) 1 mg Q4H PRN SUBQ Severe Pain (Pain Scale 7-10) 07/18/20 11:09 07/25/20 11:08 07/19/20 13:14 Iohexol (OMNIPAQUE-300 100ml) 100 ml NOW PRN INJ Radiology Procedure 07/17/20 13:45 07/19/20 13:44 Magnesium Oxide (Mag-Ox 400mg) 400 mg THREE TIMES A DAY ORAL 07/18/20 13:00 08/17/20 12:59 07/19/20 13:13 Meloxicam (Mobic) 15 mg DAILY ORAL 07/17/20 09:00 08/16/20 08:59 Metoclopramide HCl (Reglan) 10 mg Q6H PRN IVP Nausea & Vomiting 07/11/20 01:45 08/10/20 01:44 07/19/20 09:14 Miscellaneous Medication (fentaNYL Destruction) 1 ea Q72H MISC 07/18/20 09:00 08/17/20 08:59 07/18/20 09:00 Naloxone HCl (Narcan) 0.1 mg PRN IV Sedation scale 3 or 4 07/12/20 09:00 08/17/20 08:59 Pantoprazole (Protonix) 40 mg BID ORAL 07/11/20 13:15 08/10/20 01:44 07/19/20 09:17 Patient Own Medication (Patient's Own Med) 1 ea DAILY ORAL 07/17/20 14:00 08/16/20 13:59 07/19/20 09:22 Polyethylene Glycol (Miralax) 17 gm QHS ORAL 07/11/20 21:00 08/10/20 20:59 07/16/20 21:51 Prednisone (predniSONE) 10 mg DAILY ORAL 07/11/20 09:00 08/10/20 08:59 07/19/20 09:18 Pushpa Tejeda M.D. Jul 19, 2020 13:39
--- NOTE | 2020-07-19 15:24 | General Progress Note ---
Progress Note Progress Note REHAB F/U PROGRESS NOTE: SUBJECTIVE: FOLLOWED BY GI STOOL OB >> x 1 positive, x 1 negative ID FOLLOWING AT BED +/- ABD PAIN Distance * 180 ft Assistance * Stand By Assistance Assistive Device * Front Wheel Walker REVIEW OF SYSTEMS: EYES: Denies diplopia. ENT: Denies dysphagia. CARDIOVASCULAR: No chest pain. PULMONARY: No short of breath. GASTROINTESTINAL: abdominal pain. GENITOURINARY: No dysuria. MUSCULOSKELETAL: Multiple pain. Acute on chronic pain syndrome. NEUROLOGIC: Generalized weakness. PHYSICAL EXAMINATION: VITAL SIGNS: PER CHART, NOTED. HEENT: No facial droop. NECK: Supple HEART: Regular. LUNGS: Clear to auscultation bilateral. ABDOMEN: Soft. No distention. Positive bowel sounds. EXTREMITIES: Multiple deformities of hands especially and wrists. Area of bilateral knee surgery old heal noted. ulcer on lower extremity BACK: Tenderness of the thoracic and lumbar spine. NEUROLOGIC: Patient is alert and awake. She is oriented to place. Movement of bilateral upper and lower limbs somewhere between 3- to 3+/5. DATA: PER CHART, NOTED. ASSESSMENT: A 65-year-old female with 1. Thoracic and lumbar spine compression fracture/T10, T12, and L1 compression fracture. 2. Abdominal pain with elevated lipase level and abdominal ultrasound with possible report with acute cholecystitis. 3. Leukocytosis. 4. Transaminitis. 5. Urinary tract infection. 6. Chronic pain syndrome and narcotic dependency. 7. Acute on chronic pain syndrome. 8. Back pain. 9. Rheumatoid arthritis since age of 2 with multiple deformities and history of multiple surgeries including bilateral knees, wrists, and hip. 10. Debility and functional decline. 11. Gait abnormality. POSITIVE STOOL OB DEPRESSION LOWER LIMB ULCER UTI >> URINE CULTURE Final Organism 1 PROTEUS MIRABILIS COLONY COUNT: >100,000 CFU/ML PRO MIRABI M.I.C. RX --------- --- AMPICILLIN <=2 S CEFAZOLIN <=4 S CEFTAZIDIME <=1 S CEFTRIAXONE <=1 S CEFEPIME <=1 S GENTAMICIN <=1 S LEVOFLOXACIN <=0.12 S * MEROPENEM <=0.25 S NITROFURANTOIN 128 R TRIMETHOPRIM/SULFA <=20 S PIPERACILLIN/TAZOBACTAM <=4 S RECOMMENDATION: 24 hours nursing care. Physical therapy for range of motion, transfer training, endurance, balance and gait training, fall prevention with appropriate assistive device. Occupational therapy for activities of daily living, equipment function, transfer evaluation and training, upper extremity range of motion and strengthening exercise. Nursing for evaluation of her bowel and bladder, medication regimen, skin care prevention of pressure ulcer, patient and global marketing specialist education. Fall precaution, pressure ulcer precaution, cardiac precaution. Continue medical management per Medicine. Incentive spirometry. Nutritional support. acute inpatient rehabilitation placement when patient is medically stable and clear pending insurance authorization. SOFT THORACOLUMBAR CORSET (TLSO) ABD PAIN >> PER PMD PSYCH F/U CARE ABX PER ID CALCITONIN NASAL SPRAY QD, ALT NOSTRILS CA-VIT D PO QD IRON IV >> COMPLETED 5 DOSES FENTANYL PATCH WOUND CARE > PER SURGEON AND WOUND CARE TEAM ARU >> INSURANCE DENIED. GI W/U F/U. D/W PMD. Jayme Randall MD Jul 19, 2020 15:24
[2020-07-19 16:00] VITALS: BP 140/78
[2020-07-19 20:00] VITALS: BP 136/56
[2020-07-19] MEDS: Miralax 17gm pkt ORAL SCH (21:00)
[2020-07-20] VITALS: BP 154/76
[2020-07-20] MEDS: HYDROmorphone 1mg/ml Carpuject SUBQ PRN ×4 (02:08→14:58)
[2020-07-20 04:00] VITALS: BP 154/84
[2020-07-20 07:45] LABS: BASOPHILS % (AUTO) 0.4 % (0.0-2.0); EOSINOPHILS % (AUTO) 0.1 % (0.0-3.0); HEMATOCRIT 36.3 % (37.0-47.0); HEMOGLOBIN 12.1 G/DL (12.0-16.0); LYMPHOCYTES % (AUTO) 15.3 % (20.0-45.0); MEAN CORPUSCULAR VOLUME 93 FL (80-99); MONOCYTES % (AUTO) 4.9 % (1.0-10.0); NEUTROPHILS % (AUTO) 79.3 % (45.0-75.0); PLATELET COUNT 261 K/UL (150-450); RED BLOOD COUNT 3.89 M/UL (4.20-5.40); RED CELL DISTRIBUTION WIDTH 13.2 % (11.6-14.8); WHITE BLOOD COUNT 6.9 K/UL (4.8-10.8)
[2020-07-20 08:00] VITALS: BP 126/66
[2020-07-20 08:03] LABS: ALANINE AMINOTRANSFERASE 16 U/L (12-78); ALBUMIN 2.7 G/DL (3.4-5.0); ALBUMIN/GLOBULIN RATIO 0.9 (1.0-2.7); ALKALINE PHOSPHATASE 65 U/L (46-116); ANION GAP 4 mmol/L (5-15); ASPARTATE AMINO TRANSFERASE 18 U/L (15-37); BILIRUBIN,TOTAL 0.3 MG/DL (0.2-1.0); BLOOD UREA NITROGEN 8 mg/dL (7-18); CALCIUM 7.9 MG/DL (8.5-10.1); CARBON DIOXIDE 31 MMOL/L (21-32); CHLORIDE 103 MMOL/L (98-107); CREATININE 0.7 MG/DL (0.55-1.30); POTASSIUM 3.6 MMOL/L (3.5-5.1); SODIUM 137 MMOL/L (136-145)
--- NOTE | 2020-07-20 08:33 | Infectious Diseases Prog Note ---
Assessment/Plan Assessment: Sepsis UTI- ?pyelo ( had n/v )( dysuria improving)- SP rx -u/a wbc 15-20, nit neg, leuk +2; ucx >100k p mirabilis ( R macrobid ; otherwise S) -Bcx NTD Afebrile Leukocytosis (on low dose prednisone but this is home med and no leukocytosis upon admission); SP -CXR: no acute disease Abd pain -?pancreatic mass -07/18 CT abd/p : Indeterminant cystic masses in the expected location of the severely atrophied pancreas, with unclear relationship to hypodense mass at the head of the pancreas. Neoplasm should be considered, and further evaluation with MRI/MRCP with contrast (pancreas protocol) is recommended. Distended and fluid- filled cervix, which is likely pathological for a woman of postmenopausal age. Recommend gynecologic evaluation and physical examination. Nonobstructing bilateral nephrolithiasis. Small left and trace right pleural effusions with associated airspace consolidation which likely represent worsening atelectasis but pneumonia should be excluded clinically. Marked colonic stool burden; clinical correlation for constipation is recommended. Multilevel thoracolumbar compression fractures, better evaluated on CT of the lumbar spine dated 07/10/2020. DIANNE, SP Nause/vomiting- SP Elevated LFTs, improving -Abd US: Negative for gallstones. However, there is mild gallbladder wall thickening. Possibility of acalculous acute cholecystitis should be considered Peripancreatic cysts versus possible varices. Splenic hilar vascular structure, could represent a hilar varix or splenic artery aneurysm. Consider contrast CT for further evaluation. Bilateral nonobstructive intrarenal calculi. Unusual fluid within the endocervical canal or vagina, favor the latter Back pain, sp fall- Compression fx T10, T12, L1 -CT L spine: Compression fractures of T10, T12, and L1. Given diffuse osteopenia is difficult to date the fractures, however, given subtle sclerotic appearance, suggest chronic fractures. Recommend correlation with exam for location of pain and point tenderness.Cortes catheter likely within the vaginal canal. Recommend repositioning. Additional chronic findings as above. COVID19 neg x 1 advanced RA HTN Anxiety disorder/MDD osteoporosis Plan: -Continue to monitor off abx OK for d/c home from ID standpoint -07/16 SP Ceftriaxone #4 -07/13 Sp Meropenem # 2 -07/12 Sp Ceftriaxone #3 -Monitor CBC/CMP, temperatures -discharge planning Thank you for this consultation. Will continue to follow along with you. Discussed with RN. Subjective Allergies: Coded Allergies: NAPROXEN (Verified Allergy, Unknown, 07/10/20) AF WBC 6.9 NAD in bed Off abx Doing well, asking when she is going home Objective Last 24 Hour Vital Signs Date Time Temp Pulse Resp B/P (MAP) Pulse Ox O2 Delivery O2 Flow Rate FiO2 07/20/20 04:00 97.2 61 17 154/84 (107) 97 07/20/20 00:00 97.7 54 16 154/76 (102) 97 07/19/20 20:07 Nasal Cannula 2.0 07/19/20 20:06 97 Nasal Cannula 2.0 28 07/19/20 20:00 97.9 63 17 136/56 (82) 97 07/19/20 16:00 97.5 74 18 140/78 (98) 98 07/19/20 12:00 98.6 86 17 125/81 (96) 98 07/19/20 09:00 Nasal Cannula 2.0 Height (Feet): 4 Height (Inches): 11.00 Weight (Pounds): 103 Gen: NAD HEENT: NCAT, EOMI, PERRL CV: RRR Pulm: CTAB Abd: Soft, NTND Ext: No c/c/e Neuro: Awake Laboratory Tests Test 07/20/20 06:30 White Blood Count 6.9 K/UL (4.8-10.8) Red Blood Count 3.89 M/UL (4.20-5.40) L Hemoglobin 12.1 G/DL (12.0-16.0) Hematocrit 36.3 % (37.0-47.0) L Mean Corpuscular Volume 93 FL (80-99) Mean Corpuscular Hemoglobin 31.1 PG (27.0-31.0) H Mean Corpuscular Hemoglobin Concent 33.3 G/DL (32.0-36.0) Red Cell Distribution Width 13.2 % (11.6-14.8) Platelet Count 261 K/UL (150-450) Mean Platelet Volume 6.7 FL (6.5-10.1) Neutrophils (%) (Auto) 79.3 % (45.0-75.0) H Lymphocytes (%) (Auto) 15.3 % (20.0-45.0) L Monocytes (%) (Auto) 4.9 % (1.0-10.0) Eosinophils (%) (Auto) 0.1 % (0.0-3.0) Basophils (%) (Auto) 0.4 % (0.0-2.0) Sodium Level 137 MMOL/L (136-145) Potassium Level 3.6 MMOL/L (3.5-5.1) Chloride Level 103 MMOL/L (98-107) Carbon Dioxide Level 31 MMOL/L (21-32) Anion Gap 4 mmol/L (5-15) L Blood Urea Nitrogen 8 mg/dL (7-18) Creatinine 0.7 MG/DL (0.55-1.30) Estimat Glomerular Filtration Rate > 60 mL/min (>60) Glucose Level 84 MG/DL (74-106) Calcium Level 7.9 MG/DL (8.5-10.1) L Total Bilirubin 0.3 MG/DL (0.2-1.0) Aspartate Amino Transf (AST/SGOT) 18 U/L (15-37) Alanine Aminotransferase (ALT/SGPT) 16 U/L (12-78) Alkaline Phosphatase 65 U/L (46-116) Total Protein 5.6 G/DL (6.4-8.2) L Albumin 2.7 G/DL (3.4-5.0) L Globulin 2.9 g/dL Albumin/Globulin Ratio 0.9 (1.0-2.7) L CA 19-9 Antigen Pending Current Medications Medications (Trade) Dose Ordered Sig/Jessica Route PRN Reason Start Time Stop Time Status Last Admin Dose Admin Acetaminophen (Tylenol) 650 mg Q6H PRN ORAL Mild Pain (Pain Scale 1-3) 07/12/20 09:15 08/11/20 09:14 Acetaminophen (Tylenol) 650 mg Q6H PRN ORAL Temp >100.5 07/12/20 09:15 08/11/20 09:14 Calcitonin [place] (Miacalcin) 1 sprays DAILY NASAL 07/13/20 14:00 10/11/20 13:59 07/19/20 09:22 Calcium/Vitamin D (OsCal D) 1 tab DAILY ORAL 07/13/20 12:45 10/11/20 12:44 07/19/20 09:17 Docusate Sodium (Colace) 100 mg TID ORAL 07/11/20 18:00 08/10/20 01:44 07/18/20 08:27 Escitalopram Oxalate (Lexapro) 10 mg DAILY ORAL 07/11/20 09:00 08/10/20 08:59 07/19/20 09:17 Fentanyl (Duragesic) 1 patch Q72H TDERMAL 07/18/20 11:00 07/25/20 10:59 07/18/20 11:40 Fentanyl (Duragesic) 1 patch Q72H TDERMAL 07/18/20 11:00 07/25/20 10:59 07/18/20 11:41 Gadobutrol (Gadavist) 7.5 mmol NOW PRN IV Radiology Procedure 07/19/20 10:45 07/23/20 10:44 Hydromorphone HCl (Dilaudid) 1 mg Q4H PRN SUBQ Severe Pain (Pain Scale 7-10) 07/18/20 11:09 07/25/20 11:08 07/20/20 06:14 Magnesium Oxide (Mag-Ox 400mg) 400 mg THREE TIMES A DAY ORAL 07/18/20 13:00 08/17/20 12:59 07/19/20 17:23 Meloxicam (Mobic) 15 mg DAILY ORAL 07/17/20 09:00 08/16/20 08:59 Metoclopramide HCl (Reglan) 10 mg Q6H PRN IVP Nausea & Vomiting 07/11/20 01:45 08/10/20 01:44 07/19/20 09:14 Miscellaneous Medication (fentaNYL Destruction) 1 ea Q72H MISC 07/18/20 09:00 08/17/20 08:59 07/18/20 09:00 Naloxone HCl (Narcan) 0.1 mg PRN IV Sedation scale 3 or 4 07/12/20 09:00 08/17/20 08:59 Pantoprazole (Protonix) 40 mg BID ORAL 07/11/20 13:15 08/10/20 01:44 07/19/20 09:17 Patient Own Medication (Patient's Own Med) 1 ea DAILY ORAL 07/17/20 14:00 08/16/20 13:59 07/19/20 09:22 Polyethylene Glycol (Miralax) 17 gm QHS ORAL 07/11/20 21:00 08/10/20 20:59 07/16/20 21:51 Prednisone (predniSONE) 10 mg DAILY ORAL 07/11/20 09:00 08/10/20 08:59 07/19/20 09:18 Sophia Carter M.D. Jul 20, 2020 08:33
[2020-07-20] MEDS: Metoclopramide 10mg/2ml Inj IVP PRN (08:51)
[2020-07-20] MEDS: Calcium Carbonate 500mg w/Vit D 200iu tab ORAL SCH (08:52)
[2020-07-20] MEDS: Meloxicam 15 MG TAB ORAL SCH (08:52)
[2020-07-20] MEDS: RINVOQ 15 MG ORAL SCH (08:52)
[2020-07-20] MEDS: Docusate 100mg cap ORAL SCH ×2 (08:52→13:40)
[2020-07-20] MEDS: Magnesium Oxide 400mg tab ORAL SCH ×2 (08:53→13:39)
[2020-07-20 12:00] VITALS: BP 132/76
--- NOTE | 2020-07-20 14:19 | Surgery Progress Note ---
Surgery Progress Note Subjective Additional Comments abd ct noted ca 19-9 pending EUS as per GI possible Objective Last 24 Hour Vital Signs Date Time Temp Pulse Resp B/P (MAP) Pulse Ox O2 Delivery O2 Flow Rate FiO2 07/20/20 12:00 97.2 63 18 132/76 (94) 99 07/20/20 11:18 98.2 07/20/20 09:00 Nasal Cannula 2.0 07/20/20 08:00 98.2 71 18 126/66 (86) 98 07/20/20 04:00 97.2 61 17 154/84 (107) 97 07/20/20 00:00 97.7 54 16 154/76 (102) 97 07/19/20 20:07 Nasal Cannula 2.0 07/19/20 20:06 97 Nasal Cannula 2.0 28 07/19/20 20:00 97.9 63 17 136/56 (82) 97 07/19/20 16:00 97.5 74 18 140/78 (98) 98 I&O Intake and Output 07/19/20 07/20/20 19:00 07:00 Intake Total 800 ml 360 ml Output Total 300 ml 500 ml Balance 500 ml -140 ml Intake Oral 800 ml Other 360 ml Output Urine Total 300 ml 500 ml # Voids 2 # Bowel Movements 2 1 Dressing: dry Cardiovascular: RSR Respiratory: clear Abdomen: soft, flat, non-tender, present bowel sounds Extremities: no tenderness, no cyanosis Laboratory Tests Test 07/20/20 06:30 White Blood Count 6.9 K/UL (4.8-10.8) Red Blood Count 3.89 M/UL (4.20-5.40) L Hemoglobin 12.1 G/DL (12.0-16.0) Hematocrit 36.3 % (37.0-47.0) L Mean Corpuscular Volume 93 FL (80-99) Mean Corpuscular Hemoglobin 31.1 PG (27.0-31.0) H Mean Corpuscular Hemoglobin Concent 33.3 G/DL (32.0-36.0) Red Cell Distribution Width 13.2 % (11.6-14.8) Platelet Count 261 K/UL (150-450) Mean Platelet Volume 6.7 FL (6.5-10.1) Neutrophils (%) (Auto) 79.3 % (45.0-75.0) H Lymphocytes (%) (Auto) 15.3 % (20.0-45.0) L Monocytes (%) (Auto) 4.9 % (1.0-10.0) Eosinophils (%) (Auto) 0.1 % (0.0-3.0) Basophils (%) (Auto) 0.4 % (0.0-2.0) Sodium Level 137 MMOL/L (136-145) Potassium Level 3.6 MMOL/L (3.5-5.1) Chloride Level 103 MMOL/L (98-107) Carbon Dioxide Level 31 MMOL/L (21-32) Anion Gap 4 mmol/L (5-15) L Blood Urea Nitrogen 8 mg/dL (7-18) Creatinine 0.7 MG/DL (0.55-1.30) Estimat Glomerular Filtration Rate > 60 mL/min (>60) Glucose Level 84 MG/DL (74-106) Calcium Level 7.9 MG/DL (8.5-10.1) L Total Bilirubin 0.3 MG/DL (0.2-1.0) Aspartate Amino Transf (AST/SGOT) 18 U/L (15-37) Alanine Aminotransferase (ALT/SGPT) 16 U/L (12-78) Alkaline Phosphatase 65 U/L (46-116) Total Protein 5.6 G/DL (6.4-8.2) L Albumin 2.7 G/DL (3.4-5.0) L Globulin 2.9 g/dL Albumin/Globulin Ratio 0.9 (1.0-2.7) L CA 19-9 Antigen Pending Plan Problems: (1) Open wound, lower leg Assessment & Plan: Pt presented on admission with full thickness ulcer lateral L tibia(L)1.9cm x (W)2.2cm. Pt stated she bumped her leg against car few months ago and developed ulcer. Pt stated she also previously saw a Distribution Analyst in community. Base of wound is 100% fibrinous slough. Marginal erythema along borders. Small amt rubi coloured exudate.No odor noted. Hemosiderin deposits noted to bilat lower ext. R foot deformity with numerous historical surgical scars. Pt also presented on admission with saral erythema which has now resolved. Tx.Plan: Cleanse Wound Lateral R tibia with Saline. Apply Therahoney. Apply Maxsorb Extra . Apply Cavilon Skin Barrier Periwound. Cover with Optifoam drsg. Change Daily and prn. Elevate L leg with Pillow. Duplex US nutritional optimization will follow with recs thank you (2) Dehydration Assessment & Plan: Large vessels are seen around the pancreas. Gallbladder there is trace no gallstones. There is mild gallbladder wall thickening, gallbladder wall measuring 4 mm thick Sonographic Abdul's sign is negative. Common bile duct measures 6 mm in diameter. No intrahepatic biliary ductal dilatation. Liver demonstrates normal echogenicity, no focal abnormality. Portal vein and hepatic veins are patent. Pancreas is unremarkable although anechoic round structures are seen in the peripancreatic region. Spleen is unremarkable. However, a prominent vascular structures seen in the splenic hilum. Left kidney measures 9.9 cm in length. Right kidney measures 8 cm length. Both kidneys demonstrate normal echogenicity. There is no hydronephrosis. A calcification measuring 4 mm in diameter is seen in the renal sinus on the right. There is an 8 mm left lower pole calcification on the left. Bladder is nondistended, equivocally mildly thick-walled. Non-aneurysmal abdominal aorta . Unusual pelvic fluid appears to be within the vagina or less likely the endocervical canal Impression: Negative for gallstones. However, there is mild gallbladder wall thickening. Possibility of acalculous acute cholecystitis should be considered Peripancreatic cysts versus possible varices Splenic hilar vascular structure, could represent a hilar varix or splenic artery aneurysm. Consider contrast CT for further evaluation Bilateral nonobstructive intrarenal calculi Unusual fluid within the endocervical canal or vagina, favor the latter (3) DIANNE (acute kidney injury) (4) Electrolyte imbalance (5) UTI (urinary tract infection) (6) Compression fracture of lumbar vertebra (7) Compression fracture of thoracic vertebra (8) Intractable low back pain (9) Pancreatic mass Assessment & Plan: MRI pending CA 19-9 EUS? Lower chest:: Status post bilateral breast augmentation. Trace right and small left pleural effusions. Bibasilar airspace consolidation. Hepatobiliary:: Unremarkable. Genitourinary:: No hydronephrosis. Bilateral nephrolithiasis. Dominant stone in the left mid pole measures 6 to 7 mm The uterus is myomatous, with multiple heavily calcified fibroids. The cervical canal is distended and fluid-filled. Adrenals:: Unremarkable. Pancreas:: Severe atrophy of the pancreatic by. There are multiple cystic lesions which appear to arise from the body, tail, and head of the pancreas. There is ill-defined hypodensity in the uncinate process (4:28) measuring 2.6 x 2.3 cm. Gastrointestinal:: Moderate colonic stool burden. No evidence of obstruction. Appendix is not visualized but there are no secondary signs to suggest acute appendicitis. Scattered colonic diverticulosis without evidence of acute diverticulitis. Spleen: : Unremarkable. Peritoneum:: No free air or free fluid. Vasculature:: Severe aortoiliac atherosclerotic calcification. Bones and soft tissues:: Unchanged vertebral compression fractures of T9, T10, T12, and L1. There are multilevel discogenic degenerative changes of the visualized spine. Status post total left hip arthroplasty. IMPRESSION: 1. Indeterminant cystic masses in the expected location of the severely atrophied pancreas, with unclear relationship to hypodense mass at the head of the pancreas. Neoplasm should be considered, and further evaluation with MRI/MRCP with contrast (pancreas protocol) is recommended. 2. Distended and fluid-filled cervix, which is likely pathological for a woman of postmenopausal age. Recommend gynecologic evaluation and physical examination. 3. Nonobstructing bilateral nephrolithiasis. 4. Small left and trace right pleural effusions with associated airspace consolidation which likely represent worsening atelectasis but pneumonia should be excluded clinically. 5. Marked colonic stool burden; clinical correlation for constipation is recommended. 6. Multilevel thoracolumbar compression fractures, better evaluated on CT of the lumbar spine dated 07/10/2020. Tomas Brumfield Jul 20, 2020 14:19
--- NOTE | 2020-07-20 14:57 | Nephrology Progress Note ---
Assessment/Plan Problem List: (1) DIANNE (acute kidney injury) (2) Dehydration (3) Electrolyte imbalance (4) UTI (urinary tract infection) Assessment Renal failure, likely dehydration UTI Electrolyte abnormalities Elevated liver function tests History of rheumatoid arthritis Plan July 20: Labs reviewed. Renal parameters stable. Continue per PMD and consultants. July 19: Labs reviewed. Renal parameters are stable. Vitamin D level normal. July 18: Magnesium supplement ordered. Renal parameters are stable. Vitamin D level pending. July 17: Magnesium supplement ordered. Renal parameters stable. Vitamin D level pending. July 16: Labs reviewed. Serum calcium higher. Low potassium replaced. Waiting for vitamin D level. Continue rest. July 15: Labs reviewed. Serum calcium higher. Low magnesium replaced. Continue per consultants. Vitamin D level results pending. July 14: Labs reviewed. Serum calcium is low. Medication reviewed. Patient on nasal calcitonin. Will obtain vitamin D level. Continue oral vitamin the supplement. Potassium phosphorus IV supplement ordered. Continue to monitor electrolyte and chemistries. Per orders. July 13: Potassium phosphate IV ordered. IV fluid discontinued. Patient tolerating p.o. Serum creatinine baseline. Continue to monitor electrolytes. Continue per consultants. Previously: Stop meloxicam Stop lisinopril Protonix twice daily Monitor renal parameters Avoid nephrotoxic's Urine studies Slow hydration Per orders Subjective ROS Limited/Unobtainable: No Constitutional: Reports: weakness Objective Objective Last 24 Hour Vital Signs Date Time Temp Pulse Resp B/P (MAP) Pulse Ox O2 Delivery O2 Flow Rate FiO2 07/20/20 12:00 97.2 63 18 132/76 (94) 99 07/20/20 11:18 98.2 07/20/20 09:00 Nasal Cannula 2.0 07/20/20 08:00 98.2 71 18 126/66 (86) 98 07/20/20 04:00 97.2 61 17 154/84 (107) 97 07/20/20 00:00 97.7 54 16 154/76 (102) 97 07/19/20 20:07 Nasal Cannula 2.0 07/19/20 20:06 97 Nasal Cannula 2.0 28 07/19/20 20:00 97.9 63 17 136/56 (82) 97 07/19/20 16:00 97.5 74 18 140/78 (98) 98 Intake and Output 07/19/20 07/20/20 19:00 07:00 Intake Total 800 ml 360 ml Output Total 300 ml 500 ml Balance 500 ml -140 ml Intake Oral 800 ml Other 360 ml Output Urine Total 300 ml 500 ml # Voids 2 # Bowel Movements 2 1 Current Medications Medications (Trade) Dose Ordered Sig/Jessica Route PRN Reason Start Time Stop Time Status Last Admin Dose Admin Acetaminophen (Tylenol) 650 mg Q6H PRN ORAL Mild Pain (Pain Scale 1-3) 07/12/20 09:15 08/11/20 09:14 Acetaminophen (Tylenol) 650 mg Q6H PRN ORAL Temp >100.5 07/12/20 09:15 08/11/20 09:14 Calcitonin [place] (Miacalcin) 1 sprays DAILY NASAL 07/13/20 14:00 10/11/20 13:59 07/20/20 08:53 Calcium/Vitamin D (OsCal D) 1 tab DAILY ORAL 07/13/20 12:45 10/11/20 12:44 07/20/20 08:52 Docusate Sodium (Colace) 100 mg TID ORAL 07/11/20 18:00 08/10/20 01:44 07/20/20 08:52 Escitalopram Oxalate (Lexapro) 10 mg DAILY ORAL 07/11/20 09:00 08/10/20 08:59 07/20/20 08:53 Fentanyl (Duragesic) 1 patch Q72H TDERMAL 07/18/20 11:00 07/25/20 10:59 07/18/20 11:40 Fentanyl (Duragesic) 1 patch Q72H TDERMAL 07/18/20 11:00 07/25/20 10:59 07/18/20 11:41 Gadobutrol (Gadavist) 7.5 mmol NOW PRN IV Radiology Procedure 07/19/20 10:45 07/23/20 10:44 Hydromorphone HCl (Dilaudid) 1 mg Q4H PRN SUBQ Severe Pain (Pain Scale 7-10) 07/18/20 11:09 07/25/20 11:08 07/20/20 10:48 Magnesium Oxide (Mag-Ox 400mg) 400 mg THREE TIMES A DAY ORAL 07/18/20 13:00 08/17/20 12:59 07/20/20 13:39 Meloxicam (Mobic) 15 mg DAILY ORAL 07/17/20 09:00 08/16/20 08:59 Metoclopramide HCl (Reglan) 10 mg Q6H PRN IVP Nausea & Vomiting 07/11/20 01:45 08/10/20 01:44 07/20/20 08:51 Miscellaneous Medication (fentaNYL Destruction) 1 ea Q72H MISC 07/18/20 09:00 08/17/20 08:59 07/18/20 09:00 Naloxone HCl (Narcan) 0.1 mg PRN IV Sedation scale 3 or 4 07/12/20 09:00 08/17/20 08:59 Pantoprazole (Protonix) 40 mg BID ORAL 07/11/20 13:15 08/10/20 01:44 07/19/20 09:17 Patient Own Medication (Patient's Own Med) 1 ea DAILY ORAL 07/17/20 14:00 08/16/20 13:59 07/20/20 08:52 Polyethylene Glycol (Miralax) 17 gm QHS ORAL 07/11/20 21:00 08/10/20 20:59 07/16/20 21:51 Prednisone (predniSONE) 10 mg DAILY ORAL 07/11/20 09:00 08/10/20 08:59 07/20/20 08:52 Laboratory Tests 07/20/20 06:30: White Blood Count 6.9, Red Blood Count 3.89L, Hemoglobin 12.1, Hematocrit 36.3L, Mean Corpuscular Volume 93, Mean Corpuscular Hemoglobin 31.1H, Mean Corpuscular Hemoglobin Concent 33.3, Red Cell Distribution Width 13.2, Platelet Count 261, Mean Platelet Volume 6.7, Neutrophils (%) (Auto) 79.3H, Lymphocytes (%) (Auto) 15.3L, Monocytes (%) (Auto) 4.9, Eosinophils (%) (Auto) 0.1, Basophils (%) (Auto) 0.4, Sodium Level 137, Potassium Level 3.6, Chloride Level 103, Carbon Dioxide Level 31, Anion Gap 4L, Blood Urea Nitrogen 8, Creatinine 0.7, Estimat Glomerular Filtration Rate > 60, Glucose Level 84, Calcium Level 7.9L, Total Bilirubin 0.3, Aspartate Amino Transf (AST/SGOT) 18, Alanine Aminotransferase (ALT/SGPT) 16, Alkaline Phosphatase 65, Total Protein 5.6L, Albumin 2.7L, Globulin 2.9, Albumin/Globulin Ratio 0.9L, CA 19-9 Antigen [Pending] Height (Feet): 4 Height (Inches): 11.00 Weight (Pounds): 103 General Appearance: no apparent distress Cardiovascular: normal rate Respiratory/Chest: decreased breath sounds Abdomen: soft Objective No change Deepak Joseph MD Jul 20, 2020 14:57
--- NOTE | 2020-07-20 17:28 | General Progress Note ---
Subjective Allergies: Coded Allergies: NAPROXEN (Verified Allergy, Unknown, 07/10/20) Subjective patient seen in am Feels OK tolerating PO wants to be discharged MRI ordered for Mon Objective Last 24 Hour Vital Signs Date Time Temp Pulse Resp B/P (MAP) Pulse Ox O2 Delivery O2 Flow Rate FiO2 07/20/20 15:28 97.2 07/20/20 12:00 97.2 63 18 132/76 (94) 99 07/20/20 11:18 98.2 07/20/20 09:00 Nasal Cannula 2.0 07/20/20 08:00 98.2 71 18 126/66 (86) 98 07/20/20 04:00 97.2 61 17 154/84 (107) 97 07/20/20 00:00 97.7 54 16 154/76 (102) 97 07/19/20 20:07 Nasal Cannula 2.0 07/19/20 20:06 97 Nasal Cannula 2.0 28 07/19/20 20:00 97.9 63 17 136/56 (82) 97 Intake and Output 07/19/20 07/20/20 19:00 07:00 Intake Total 800 ml 360 ml Output Total 300 ml 500 ml Balance 500 ml -140 ml Intake Oral 800 ml Other 360 ml Output Urine Total 300 ml 500 ml # Voids 2 # Bowel Movements 2 1 Laboratory Tests 07/20/20 06:30: White Blood Count 6.9, Red Blood Count 3.89L, Hemoglobin 12.1, Hematocrit 36.3L, Mean Corpuscular Volume 93, Mean Corpuscular Hemoglobin 31.1H, Mean Corpuscular Hemoglobin Concent 33.3, Red Cell Distribution Width 13.2, Platelet Count 261, Mean Platelet Volume 6.7, Neutrophils (%) (Auto) 79.3H, Lymphocytes (%) (Auto) 15.3L, Monocytes (%) (Auto) 4.9, Eosinophils (%) (Auto) 0.1, Basophils (%) (Auto) 0.4, Sodium Level 137, Potassium Level 3.6, Chloride Level 103, Carbon Dioxide Level 31, Anion Gap 4L, Blood Urea Nitrogen 8, Creatinine 0.7, Estimat Glomerular Filtration Rate > 60, Glucose Level 84, Calcium Level 7.9L, Total Bilirubin 0.3, Aspartate Amino Transf (AST/SGOT) 18, Alanine Aminotransferase (ALT/SGPT) 16, Alkaline Phosphatase 65, Total Protein 5.6L, Albumin 2.7L, Globulin 2.9, Albumin/Globulin Ratio 0.9L, CA 19-9 Antigen [Pending] Height (Feet): 4 Height (Inches): 11.00 Weight (Pounds): 103 Objective WDWN NCAT supple CTA RRR abd soft no edema non focal Assessment/Plan Assessment/Plan: Assessment/Plan Problem List: (1) Intractable low back pain ICD Codes: M54.5 - Low back pain SNOMED: [id number] (2) Compression fracture of thoracic vertebra ICD Codes: S22.000A - Wedge compression fracture of unspecified thoracic vertebra, initial encounter for closed fracture SNOMED: 934434893 Qualifiers: Qualified Codes: S22.000A - Wedge compression fracture of unspecified thoracic vertebra, initial encounter for closed fracture (3) UTI (urinary tract infection) ICD Codes: N39.0 - Urinary tract infection, site not specified SNOMED: 26229853 Qualifiers: Qualified Codes: N30.00 - Acute cystitis without hematuria Assessment/Plan: Anemia stool ob positive X1 abd pain ? peripancreatic cyst on iv iron stable H&H on ppi repeat stool ob ABD CT>> reviewed>>> ordered MRI --> advised to f/u with Dr. Anderson to have done as outpatient CA 19-9 may need EUS next week pain control Corona Hartmann MD Jul 20, 2020 17:28
--- NOTE | 2020-07-22 13:21 | Discharge Summary ---
Discharge Summary Discharge Summary _ DATE OF ADMISSION: 07/10/2020 DATE OF DISCHARGE: 07/20/2020 DISCHARGED BY: Dr Ag REASON FOR ADMISSION: 65 years old female with past medical history of severe rheumatoid arthritis, presented status post fall complaining of low back pain. Patient reported that while she was walking , she lost her balance and fell. She complained of lower back pain , 10 out of 10. Patient was using oral analgesic and fentanyl patch without much help. She denied bowel or bladder incontinence. No fever or chills. Patient reported nausea and one episode of vomiting. She denied head injury. Patient was not on any blood thinners. Upon evaluation vital signs were stable, except blood pressure was elevated 173/95. CT spine of the lumbar spine revealed compression fracture of T10, T12 , L1. given diffuse osteopenia it is difficult to date fracture , however given sclerotic appearance, suggested chronic fracture. Laboratory work-up revealed leukopenia WBC 3.6, stable hemoglobin and hematocrit initially. Chemistry revealed sodium 133 , chloride 96 ,otherwise stable electrolytes. BUN 13, creatinine 1.3. Glucose 146. Stable LFT. Lipase 61. Urinalysis revealed pyuria and moderate bacteria. EKG revealed sinus rhythm , no acute ischemic changes . Rapid COVID-19 Patient admitted with UTI , compression fracture , intractable low back pain, status post fall. CONSULTANTS: ID specialist Dr. Tejeda GI specialist Dr. Hartmann backup administrative coordinator Dr. Joseph surgery Dr. Brumfield psychiatrist physical medicine and operations specialists Dr. Randall pain specialist Dr. Mckeon [facility] H[facility]PITAL COURSE: Patient admitted to medical surgical floor. Patient started on IV hydration. Pain management was addressed as per pain specialist recommendations. Patient started on empiric antibiotics. Fall precautions were maintained. Patient was working with physical therapist. Home medication resumed. DVT and GI prophylaxis provided. The next day patient developed leukocytosis Blood cultures were negative. Urine culture revealed Proteus . Antibiotic regimen optimized as per ID specialist recommendation. Patient completed treatment for UTI while in the hospital. Patient possibly had pyelonephritis, given associated nausea and vomiting. Leukocytosis resolved , no fevers. Physical medicine operations specialists closely followed and provided recommendation as to further rehabilitation management. Patient developed transaminitis the next day. Abdominal ultrasound demonstrated no evidence of gallstones. Mild gallbladder wall thickening noted. Possibility of acalculous acute cholecystitis should be considered. Transaminitis was transient and resolved in 2 days. GI specialist followed. Patient noted to have anemia with IV hydration . Hemoglobin and hematocrit were closely monitored with goal to keep hemoglobin above 7 , remained at baseline. Anemia work-up revealed evidence of iron deficiency. Patient was on the IV iron GI prophylaxis with PPI provided. Prior to discharge hemoglobin 11.5, hematocrit 32.3. Stool for occult blood was positive x1 and negative x1. Patient undergone CT scan of the abdomen and pelvis, which revealed indeterminant cystic masses in the expected location of the severely atrophic pancreas there relationship to hypodense mass at the head of the pancreas. Neoplasm should be considered. Cancer tumor markers were ordered Patient wanted to be discharged and continue further work-up as outpatient . GI specialist recommended MRI of the abdomen and follow-up with GI specialist as outpatient. Patient will need CA 19-9, EUS and MRI of the abdomen. Patient developed acute kidney injury with creatinine of 1.6. Renal parameters and electrolytes were closely monitor. Electrolytes corrected as needed. Nephrotoxic's were avoided. Patient was as hydrated. Nephrotoxic stopped, including lisinopril and meloxicam. Urine studies were done . Patient was slowly hydrated . prior to discharge all electrolytes stable , creatinine from highest 1.6 down to 0.7. [employer] Consultant recommended to avoid nephrotoxic in future, especially nonsteroidal anti-inflammatory medication. Psychiatrist followed. Psychiatric medication regimen was optimized. Patient started on Lexapro. Patient was provided with reality orientation. Patient presented on admission with a full-thickness ulcer lateral left tibia. Wound care provided as per surgeon recommendation, continue wound care at home. Patient clinically stabilized and was ready for discharge home with home health services. FINAL DIAGNOSES: Status post mechanical fall Multiple compression deformity fracture Back pain Sepsis Proteus UTI , possible pyelo with associated nausea and vomiting Severe debilitating rheumatoid arthritis Lumbar DDD/spondylosis Multiple joint pain Hypertension Acute kidney injury Dehydration Electrolyte imbalance Possible peripancreatic cyst Abdominal pain Anemia Elevated LFT -resolved Chronic pain syndrome with narcotic dependency Open wound lower leg Major depressive disorder Anxiety disorder DISCHARGE MEDICATIONS: See Medication Reconciliation list. DISCHARGE INSTRUCTIONS: Patient was discharged home with home health services. Follow up with primary care provider in one week. I have been assigned to dictate discharge summary for this account. I was not involved in the patient's management. Ivy Horton NP Jul 22, 2020 13:21
== END 2020-07-20 16:51 | disposition home or self-care (01) | DRG 872 ==
LOC: EDBD 21:04 → EMR 21:36 → 4E 23:03 → EDBEDREQ 23:12
DX: A41.9 Sepsis, unspecified organism (principal); N39.0 Urinary tract infection, site not specified; N17.9 Acute kidney failure, unspecified; K81.0 Acute cholecystitis; L97.828 Non-pressure chronic ulcer of other part of left lower leg with other specified severity; K86.2 Cyst of pancreas; F11.20 Opioid dependence, uncomplicated; M47.816 Spondylosis without myelopathy or radiculopathy, lumbar region; E86.0 Dehydration; M06.9 Rheumatoid arthritis, unspecified; I10 Essential (primary) hypertension; F41.9 Anxiety disorder, unspecified; F32.9 Major depressive disorder, single episode, unspecified; M19.90 Unspecified osteoarthritis, unspecified site; G89.4 Chronic pain syndrome; R54 Age-related physical debility; Z88.6 Allergy status to analgesic agent; Z91.81 History of falling; D50.9 Iron deficiency anemia, unspecified; B96.4 Proteus (mirabilis) (morganii) as the cause of diseases classified elsewhere; E87.8 Other disorders of electrolyte and fluid balance, not elsewhere classified; D64.9 Anemia, unspecified; M51.36 Other intervertebral disc degeneration, lumbar region; M81.0 Age-related osteoporosis without current pathological fracture; M48.54XD Collapsed vertebra, not elsewhere classified, thoracic region, subsequent encounter for fracture with routine healing; M48.56XD Collapsed vertebra, not elsewhere classified, lumbar region, subsequent encounter for fracture with routine healing; R26.9 Unspecified abnormalities of gait and mobility
CPT/HCPCS: 36415; 51702; 71045; 72131; 74177; 76700; 80053; 80061; 81003; 82270; 82306; 82607; 82728; 82746; 82977; 83036; 83540; 83550; 83605; 83690; 83735; 83880; 83935; 84100; 84300; 84443; 84550; 85007; 85025; 85651; 86140; 87040; 87086; 87181; 96361; 96365; 96375; 96376; 99285; J2405; J2765; J7030; J8499; U0002